=== PATIENT | male | born 1945 | race Caucasian/White ===

== ENCOUNTER 2023-04-24 08:34 | Outpatient (OUT) | payer MEDICARE, SELFPAY ==
[2023-04-24 08:52] LABS: Basophils Absolute Auto 0.1 10^3/uL (0.0-0.1); Basophils Percent Auto 0.8 % (0.2-2.0); Eosinophils Absolute Auto 0.4 10^3/uL (0.0-0.7); Eosinophils Percent Auto 5.4 % (0.9-7.0); Hematocrit 46.8 % (42.0-54.0); Hemoglobin 15.9 g/dL (14.0-18.0); Immature Granulocytes Abs Auto 0.03 10^3/uL (0.00-0.03); Immature Granulocytes Pct Auto 0.5 % (0.0-0.5); Lymphocytes Absolute Auto 2.2 10^3/uL (1.2-3.8); Lymphocytes Percent Auto 33.8 % (20.5-60.0); Mean Corpuscular Hemoglobin 30.1 pg (25.9-34.0); Mean Corpuscular Volume 88.5 fL (80.0-94.0); Mean Platelet Volume 9.9 fL (9.5-13.5); Monocytes Percent Auto 15.1 % (1.7-12.0); Neutrophils Absolute Auto 2.9 10^3/uL (1.4-6.5); Neutrophils Percent Auto 44.4 % (43.0-75.0); Platelet Count 242 10^3/uL (150-450); Red Blood Count 5.29 10^6/uL (4.70-6.10); Red Cell Distribution Width 12.3 % (11.0-15.0); White Blood Count 6.6 10^3/uL (4.0-11.0)
[2023-04-24 09:31] LABS: Anion Gap 14.4; BUN Creatinine Ratio 16.4; Calcium 9.4 mg/dL (8.5-10.1); Carbon Dioxide 25.7 mmol/L (21.0-32.0); Chloride 104 mmol/L (98-107); Chol HDL Ratio 6.8; Cholesterol 210 mg/dL (<=200); Estimated GFR (African America >60 (>=60); Estimated GFR (Non-African Ame 57 (>=60); Glucose 105 mg/dL (74-106); HDL Cholesterol 31 mg/dL (40-60); Potassium 4.1 mmol/L (3.5-5.1); Sodium 140 mmol/L (136-145); Thyroid Stimulating Hormone 3.523 uIU/mL (0.358-3.740); Triglycerides 268 mg/dL (<=150); VLDL CHOLESTEROL 53.6 mg/dL
[2023-04-24 09:57] LABS: Prostate Specific Antigen Scrn 0.26 ng/mL (<=4.00)
== END 2023-04-24 08:35 ==
LOC: LAB 08:34
PROVIDERS: PCP Internal Medicine; Visit Provider Internal Medicine
DX: E78.00 Pure hypercholesterolemia, unspecified (principal); I10 Essential (primary) hypertension; Z12.5 Encounter for screening for malignant neoplasm of prostate; E89.0 Postprocedural hypothyroidism; Z79.899 Other long term (current) drug therapy
CPT/HCPCS: 36415; 80048; 80061; 84443; 85025; G0103

== ENCOUNTER 2024-01-15 09:19 | Outpatient (OUT) | payer MEDICARE, SELFPAY ==
--- NOTE | 2024-01-15 09:35 | CT_ITS ---
The [address] [address] Patient Name: FUNMILAYO MACKENZIE MRN: [id number] date: 1945 Sex: M Assigned Patient Location: LAB Current Patient Location: LAB Accession/Order Number: [id number] Exam Date: 01/15/2024 09:46 Report Date: 01/15/2024 15:49 At the request of: MAURICIO BOBBY Procedure: CT chest wo con EXAMINATION: CT chest wo con HISTORY: Lung Nodule R91.1 COMPARISON: 01/13/2023, 07/01/2022 TECHNIQUE: Multi-planar CT images were created with IV contrast. Axial, Coronal, and Sagittal images. Dose reduction techniques were achieved by using automated exposure control and/or adjustment of mA and/or kV according to patient size and/or use of iterative reconstruction technique. FINDINGS: LUNGS: Scattered calcified and noncalcified solid pulmonary nodules throughout both lungs the largest is identified in the left lower lobe axial image 79 measuring 7.7 mm in diameter. No new significant pulmonary nodule or mass PLEURA: No mass, effusion, or pneumothorax. VASCULATURE: No abnormality. MARISOL: Calcified left hilar lymph nodes MEDIASTINUM: No mass or adenopathy. CARDIAC: No enlargement or pericardial effusion. Heavy coronary atherosclerosis AORTA: No aneurysm or dissection. CHEST WALL: No mass or axillary adenopathy. BONES: No bone lesion or fracture. Moderate diffuse degenerative changes LIMITED ABDOMEN: No suspicious findings. Limited images of the upper abdomen. OTHER: Negative. CT/CT chest wo con IMPRESSION: Stable scattered subcentimeter pulmonary nodules. Lack of change from 2021 suggests a benign process Electronically authenticated by: YASH THOMPSON Date: 01/15/2024 15:49
--- NOTE | 2024-01-15 09:35 | MR_ITS ---
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 TECHNIQUE: A comprehensive examination was performed utilizing a variety of imaging planes and imaging parameters to optimize visualization of suspected pathology. Magnetic resonance cholangiopancreatography was also performed. FINDINGS: LIVER: Normal. No enlargement, atrophy, abnormal density, or significant focal lesion. BILIARY: No visible dilatation or calcification. PANCREAS: No lesion, fluid collection, ductal dilatation, or atrophy. 1.1 x 0.8 cm area of signal abnormality noted along the anterior margin of the pancreatic head best visualized on axial image #18 this appears to be extrinsic to the pancreas with no postcontrast enhancement SPLEEN: No enlargement or focal lesion. KIDNEYS: Bilateral renal cortical cysts, nonenhancing ADRENALS: No mass or enlargement. AORTA/VASCULAR: No aneurysm or dissection. RETROPERITONEUM: No mass or adenopathy. BOWEL/MESENTERY: No visible mass, obstruction, or bowel wall thickening. ABDOMINAL WALL: No mass or hernia. BONES: No bony lesion or fracture. LUNG BASES: No visible pleural disease. Lung bases not well assessed with MRI. OTHER: Negative. MR/MR abdomen wo/w con IMPRESSION: 1.1 x 0.8 cm nonenhancing cystic lesion anterior to the pancreatic head, this appears to be extrinsic to the pancreas. Electronically authenticated by: YASH THOMPSON Date: 01/15/2024 13:09
[2024-01-15 09:42] LABS: Estimated GFR (African America >60 (>=60); Estimated GFR (Non-African Ame 55 (>=60)
== END 2024-01-15 09:20 | disposition home or self-care (01) ==
LOC: LAB 09:19
PROVIDERS: PCP Internal Medicine; Visit Provider Internal Medicine
DX: K86.2 Cyst of pancreas (principal); R91.1 Solitary pulmonary nodule
CPT/HCPCS: 36415; 71250; 74183; 82565; A9575

== ENCOUNTER 2024-05-13 07:21 | Outpatient (OUT) | payer MEDICARE, SELFPAY ==
--- OUTSIDE RECORDS SUMMARY | 2024-05-13 07:28 | XMS_ITS | CCD ---
Author Organization [facility] Care Team Providers Care Sde Name Role Phone Dominic Yan Primary Care Physician Óscar Holcomb Unavailable Unavailable BALL, DR MARTÍNEZ Primary Care Unavailable BALL, DR MARTÍNEZ Consulting Unavailable BALL, DR MARTÍNEZ Attending Unavailable BALL, DR MARTÍNEZ Admitting Unavailable ZIEBER, DR JESSICA Butler Consulting Unavailable BALL, DR MARTÍNEZ Admitting Unavailable BALL, DR MARTÍNEZ Primary Care Unavailable BALL, DR MARTÍNEZ Consulting Unavailable BALL, DR MARTÍNEZ Attending Unavailable ZIEBER, DR JESSICA Butler Consulting Unavailable BALL, DR MARTÍNEZ Admitting Unavailable BALL, DR MARTÍNEZ Primary Care Unavailable BALL, DR MARTÍNEZ Consulting Unavailable BALL, DR MARTÍNEZ Attending Unavailable Luis, Pramod Unavailable PRAMOD SMITH Referring Unavailable LUIS, PRAMOD Mena Primary Care Unavailable MARCIA PLUNKETT Attending Unavailable PRAMOD SMITH Referring Unavailable PRAMOD SMITH Primary Care Unavailable Pramod Smith DO Primary Care Provider Allergies Allergy Classification Reported Allergen(s) Allergy Type Date of Onset Reaction(s) Facility Cholesterol Absorption Inhibitors (1 source) ezetimibe Drug Allergy 4 Unknown Reaction [facility] Doxycycline (1 source) Doxycycline Drug Allergy 4 Unknown Reaction [facility] HMG-CoA Reductase Inhibitors (statins) (1 source) Simvastatin Drug Allergy 4 Unknown Reaction [facility] Opioid Agonists (1 source) Morphine Drug Allergy 4 mood disturbance [facility] venlafaxine (1 source) venlafaxine Drug Allergy 4 Unknown Reaction [facility] (5 sources) atorvastatin; Translations: [Lipitor] Drug Allergy [facility] [employer] (5 sources) ezetimibe; Translations: [Zetia] Drug Allergy [facility] [employer] (5 sources) ezetimibe / Simvastatin; Translations: [Vytorin 10-10] Drug Allergy MYALGIAS [employer] (5 sources) Lovastatin; Translations: [lovastatin] Drug Allergy MYALGIAS [employer] (1 source) Pravastatin; Translations: [pravastatin] Drug Allergy MYALGIAS [employer] (5 sources) rosuvastatin; Translations: [Crestor] Drug Allergy MYALGIAS [employer] (4 sources) Pravastatin; Translations: [pravastatin] Drug Allergy MYALGIAS [employer] (18 sources) ezetimibe Drug Allergy 4 Unknown, Unknown Reaction [facility] (20 sources) Morphine; Translations: [MORPHINE] Drug Allergy 0 Confusion [facility] (11 sources) Doxycycline Drug Allergy 4 Unknown, Unknown Reaction [facility] (13 sources) Simvastatin; Translations: [SIMVASTATIN] Drug Allergy 4 Unknown, Unknown Reaction [facility] (11 sources) venlafaxine Drug Allergy 4 Unknown, Unknown Reaction [facility] (4 sources) patient allergy list reviewed by nurse or physicia Propensity to adverse reactions 9 Comment:Done [employer] Other Medications Current Medications Medication Drug Class(es) Dates Sig (Normalized) Sig (Original) acetaminophen 325 mg oral tablet (1 source) Start: 01-01-2022 take 2 tablets by mouth every eight hours as needed for pain and headache and fever acetaminophen (TYLENOL) 325 mg tablet Take 2 tablets (650 mg total) by mouth every 8 (eight) hours as needed for pain, headaches or fever. 30 tablet 0 01/01/2022 Active acyclovir 800 mg oral tablet (20 sources) Herpesvirus Nucleoside Analog DNA Polymerase Inhibitor, Herpes Simplex Virus Nucleoside Analog DNA Polymerase Inhibitor, Herpes Zoster Virus Nucleoside Analog DNA Polymerase Inhibitor Start: 02-17-2024 take 800 mg by mouth twice daily Acyclovir Active 800 MG PO Twice daily February 17, 2024 12:00am take 1 tablet by mouth twice judy ly Acyclovir 800 MG TAKE ONE TABLET BY MOUTH TWICE A DAY for 30 Active take 1 tablet by mouth once florencio y acyclovir 800 mg tablet take one tablet by mouth daily aspirin 81 mg delayed release oral tablet (20 sources) Platelet Aggregation Inhibitor, Nonsteroidal Anti-inflammatory Drug Start: 02-17-2024 take 81 mg by mouth once daily Aspirin Active 81 MG PO Daily February 17, 2024 12:00am take 1 tablet by bj th every twenty-four hours Aspirin 81 81 MG 1 tablet Orally Once a day Active take 1 tablet by mouth in the mo rning aspirin 325 mg tablet Take 1 tablet (325 mg total) by mouth in the morning. 0 Active take 1 tablet by mouth once florencio y Aspirin 81 81 MG 1 tablet Orally Once a day Active take 1 tablet by mouth once florencio y aspirin 325 mg oral tablet,delayed release (DR/EC) take 1 tablet (325 mg) by oral route once daily brimonidine tartrate 1 mg/ml ophthalmic solution (3 sources) alpha-Adrenergic Agonist brimoni dine (ALPHAGAN P) 0.1 % drops 1 drop every 8 (eight) hours. 0 Active brimonidine 0.2 % eye drops instill 1 drop into right eye by ophthalmic route daily-dosage not provided clonazePAM 0.5 mg oral tablet (20 sources) Benzodiazepine Start: 03-05-2024 take 1 tablet by mouth three times daily for anxiety, then take 0.5 tablet by mouth three times daily for anxiety Clonazepam Active 0.75 MG PO Three times daily 405 90 March 05, 2024 1:31pm take 1 to 1 and 1/2 tablets by mouth three times a day for anxiety Start: 03-05-2024 End: 03-05-2024 take 1 tablet by mouth three times daily for anxiety, then take 0.5 tablet by mouth three times daily for anxiety Clonazepam Discontinued 0.5 MG PO Three times daily March 05, 2024 12:00am March 05, 2024 1:33pm take 1 to 1 and 1/2 tablets by mouth three times a day for anxiety Start: 02-17-2024 End: 03-05-2024 take 1-1.5 tablets by mouth twice daily Clonazepam Discontinued 0.5 MG PO Twice daily February 17, 2024 12:00am March 05, 2024 11:03am 1-1.5 tablets Start: 05-08-2023 take 1-1.5 tablets b y mouth three times daily for anxiety clonazePAM 0.5 MG Take 1-1.5 Tablets by mouth Orally Three Times a day if needed for anxiety Apr, Active Start: 03-28-2023 take 1-1.5 tablets b y mouth three times daily for anxiety clonazePAM 0.5 MG Take 1-1.5 Tablets by mouth Orally Three Times a day if needed for anxiety March, Active Start: 01-29-2016 take 1 tablet by [facility] three times daily clonazepam 0.5 mg oral tablet 01/29/2016 take 1 tablet (0.5 mg) by oral route 3 times per day take 0.5 tablet by [facility] every twelve hours KlonoPIN 0.5 MG 0.5 tablet Orally Twice a day Not-Taking/PRN take 1 tablet by [facility] every twenty-four hours clonazePAM 0.5 MG 1 tablet at bedtime Orally Once a day Active colestipol hydrochloride 1000 mg oral tablet (20 sources) Bile Acid Sequestrant Start: 02-17-2024 take 2 g by mouth once daily Colestipol Active 2 GM PO Daily February 17, 2024 12:00am Start: 10-17-2021 take 1 tablet by [facility] twice daily colestipol 1 gram tablet 10/17/2021 take 1 tablet (1 gram) by oral route 2 times per day swallowing whole with any liquid. Do not crush, chew and/or divide. Start: 10-17-2021 take 1 tablet by bj twice daily colestipol 1 gram tablet 10/17/2021 take 1 tablet (1 gram) by oral route 2 times per day swallowing whole with any liquid. Do not crush, chew and/or divide. take 2 tablets by [facility] every twenty-four hours Colestipol HCl 1 GM 2 tablets Orally Once a day Active take 1 tablet by bj at bedtime colestipoL (COLESTID) 1 g tablet Take 1 tablet (1 g total) by mouth in the morning and 1 tablet (1 g total) before bedtime. 0 Active take 2 tablets by mo uth every twenty-four hours Colestipol HCl 1 GM 2 tablets Orally Once a day Active glucose 0.4 mg/mg oral gel (1 source) Start: 01-01-2022 dextrose (GLUTOSE) 40 % gel Take 37.5 mL (15 g total) by mouth as needed for low blood sugar (blood glucose less than 70 mg/dL). 0 01/01/2022 Active latanoprost 0.05 mg/ml ophthalmic solution (3 sources) Prostaglandin Analog take 1 drop(s) into the eye(s) once daily latanoprost (XALATAN) 0.005 % ophthalmic solution 1 drop nightly. 0 Active levothyroxine sodium 0.112 mg oral tablet (20 sources) l-Thyroxine Start: 01-14-2024 take 1 tablet by mouth once daily Levothyroxine Active 0 .ROUTE .COMPLEX January 14, 2024 7:23pm TAKE ONE TABLET BY MOUTH DAILY Start: 01-14-2024 End: 01-14-2024 take 1 tablet by mouth once daily in the morning Levothyroxine (Synthroid) 112 mcg tablet Discontinued 112 MCG PO Every morning January 14, 2024 1:00am January 14, 2024 7:23pm Start: 01-27-2017 take 1 tablet by [facility] once daily Synthroid 100 mcg oral tablet 01/27/2017 take 1 tablet (100 mcg) by oral route once daily take 1 capsule by [facility] once daily Levothyroxine Sodium 112 MCG TAKE ONE CAPSULE BY MOUTH DAILY Active take 1 capsule by [facility] once daily Levothyroxine Sodium 112 MCG TAKE ONE CAPSULE BY MOUTH DAILY Active lisinopril 10 mg oral tablet (20 sources) Angiotensin Converting Enzyme Inhibitor Start: 03-29-2024 take 1 tablet by mouth once daily Lisinopril Active 0 .ROUTE .COMPLEX March 29, 2024 1:08pm take 1 tablet by mouth once daily Start: 02-17-2024 End: 03-29-2024 take 10 mg by mouth once daily Lisinopril Discontinued 10 MG PO Daily February 17, 2024 12:00am March 29, 2024 1:09pm Start: 10-17-2021 End: 10-12-2022 take 1 tablet by mouth once daily lisinopril 10 mg tablet 10/17/2021 10/12/2022 take 1 tablet by mouth once daily Start: 03-14-2020 take 1 tablet by bj once daily lisinopril 10 mg oral tablet 03/14/2020 TAKE ONE TABLET BY MOUTH DAILY Start: 03-09-2019 take 1 tablet by bj once daily lisinopril 10 mg oral tablet 03/09/2019 TAKE ONE TABLET BY MOUTH DAILY take 1 tablet by bj th every twenty-four hours Lisinopril 10 MG 1 tablet Orally Once a day Active metoprolol tartrate 50 mg oral tablet (20 sources) beta-Adrenergic Amari Start: 02-17-2024 take 50 mg by mouth twice daily Metoprolol Tartrate Active 50 MG PO Twice daily February 17, 2024 12:00am Start: 01-01-2022 take 1 tablet by bj twice daily metoprolol tartrate (LOPRESSOR) 50 mg tablet Take 1 tablet (50 mg total) by mouth 2 (two) times a day. 90 tablet 3 01/01/2022 Active Start: 10-17-2021 take 1 tablet by bj twice daily metoprolol tartrate 25 mg oral tablet 10/17/2021 TAKE ONE TABLET BY MOUTH TWICE DAILY Start: 10-17-2021 take 1 tablet by bj twice daily metoprolol tartrate 25 mg oral tablet 10/17/2021 TAKE ONE TABLET BY MOUTH TWICE DAILY Start: 03-09-2019 take 1 tablet by bj twice daily metoprolol tartrate 25 mg oral tablet 03/09/2019 TAKE ONE TABLET BY MOUTH TWICE DAILY nitroglycerin 0.4 mg sublingual tablet (5 sources) Nitrate Vasodilator Start: 10-17-2021 Nitrostat 0.4 mg sublingual tablet, sublingual 10/17/2021 1 tablet under tongue for chest pain; may repeat every 5 min until relief; if pain persists after 3 tablets in 15 min call 911 Start: 10-17-2021 Nitrostat 0.4 mg sublingual tablet, sublingual 10/17/2021 1 tablet under tongue for chest pain; may repeat every 5 min until relief; if pain persists after 3 tablets in 15 min call 911 Start: 03-09-2019 Nitrostat 0.4 mg sublingual tablet, sublingual 03/09/2019 1 tablet under tongue for chest pain; may repeat every 5 min until relief; if pain persists after 3 tablets in 15 min call 911 traMADol hydrochloride 50 mg oral tablet (20 sources) Opioid Agonist Start: 01-05-2024 End: 01-05-2024 take 50 mg by mouth every six hours Tramadol Active 50 MG PO Every 6 hours January 05, 2024 6:49pm Start 01/05 w/ 2R Start: 07-23-2023 take 1 tablet by bj th every twenty-four hours traMADol HCl 50 MG 1 tablet Orally Once a day Jul, Active Start: 01-15-2023 take 1 tablet by bj th every twenty-four hours traMADol HCl 50 MG 1 tablet Orally Once a day Jan, Active take 1 tablet by bj th every six hours traMADol HCl 50 MG 1 tablet as needed Orally every 6 hrs PRN Not-Taking/PRN take 1 tablet by bj th once daily as needed tramadol 50 mg oral tablet take 1 tablet by oral route daily as needed Completed/Discontinued Medications Medication Drug Class(es) Dates Sig (Normalized) Sig (Original) azithromycin 250 mg oral tablet (18 sources) Macrolide Antimicrobial Start: 04-09-2023 Azithromycin 250 MG as directed Orally daily for 5 days March, Not-Taking/PRN take 2 tablets by mo uth once daily, then take 1 tablet by mouth once daily azithromycin 250 mg oral tablet take 2 tablets (500 mg) by oral route once daily for 1 day then 1 tablet (250 mg) by oral route once daily for 4 days bimatoprost 0.1 mg/ml ophthalmic solution (20 sources) Prostaglandin Analog take 1 drop(s) into the eye(s) once daily in the evening Lumigan 0.01 % 1 drop into affected eye in the evening Ophthalmic Once a day Not-Taking/PRN take 1 drop(s) into the eye(s) once daily in the evening Lumigan 0.01 % 1 drop into affected eye in the evening Ophthalmic Once a day Not-Taking Calcium & Magnesium Carbonat es 520-400 MG/5ML (17 sources) Calcium & Magnes ium Carbonates 520-400 MG/5ML Orally Not-Taking/PRN Calcium & Magnes ium Carbonates 520-400 MG/5ML Orally Not-Taking calcium polycarbophil 625 mg oral tablet (5 sources) take 1 tablet by mouth once daily Fiber (calcium polycarbophil) 625 mg oral tablet take 1 tablet by oral route daily Calcium, magnesium, potassium (5 sources) take 1 tablet by mouth twice daily Calcium, magnesium, potassium one tablet by mouth twice a day-dosage not provided cholecalciferol 0.05 mg oral tablet (5 sources) Vitamin D Start: 015 take 5 drop(s) by mouth once daily Vitamin D3 2,000 unit oral tablet 07/10/2015 dosage not reported-takes 5 drops per day cholestyramine (bulk) Miscellaneous Powder (1 source) End: take 4 g by mouth once daily cholestyramine (bulk) Miscellaneous Powder 04/13/2013 use as directed 4 GM BY MOUTH DAILY Cholestyramine Resin (4 sources) Bile Acid Sequestrant End: take 4 g by mouth once daily cholestyramine (bulk) Miscellaneous Powder 04/13/2013 use as directed 4 GM BY MOUTH DAILY ubidecarenone 100 mg oral capsule (5 sources) take 1 capsule by mouth once daily CoQ-10 100 mg oral capsule take 1 capsule by oral route daily ergocalciferol 1.25 mg oral capsule (5 sources) Provitamin D2 Compound End: take 1 capsule by mouth every week Vitamin D2 50,000 unit oral capsule 04/13/2013 take 1 capsule (50,000 unit) by oral route once weekly 1 ml evolocumab 140 mg/ml auto-injector (5 sources) PCSK9 Inhibitor Start: 019 End: 020 inject 1 mL by subcutaneous injection every other week Repatha SureClick 140 mg/mL subcutaneous pen injector 03/09/2019 03/13/2020 inject 1 milliliter (140 mg) by subcutaneous route every 2 weeks in the abdomen, thigh, or outer area of upper arm (rotate sites) never started Fish Oils (20 sources) take 1 capsule by mouth once daily as needed Fish Oil 1000 MG 1 capsule Orally Once a day Not-Taking/PRN take 1 capsule by mouth once judy ly Fish Oil 1000 MG 1 capsule Orally Once a day Not-Taking take 1 capsule by mouth twice da real Fish Oil 500 mg oral capsule take 1 capsule by oral route 2 times a day fluticasone propionate 0.05 mg/actuat metered dose nasal spray (10 sources) Corticosteroid End: 04-13-2013 take 2 spray(s) nasal route once daily Veramyst 27.5 mcg/actuation nasal spray,suspension 04/13/2013 spray 2 sprays (55 mcg) in each nostril by intranasal route once daily take 1 spray(s) nasa l route once daily as needed Flonase 50 mcg/actuation nasal spray,suspension inhale 1 spray (50 mcg) in each nostril by intranasal route once daily as needed folic acid 0.4 mg / vitamin b 12 0.5 mg oral tablet (3 sources) Vitamin B12 take 1 tablet by mouth once daily vitamin [id number] acid 500-400 mcg oral tablet take 1 tablet by oral route daily folic acid 0.4 mg / vitamin b12 0.5 mg oral tablet (2 sources) Vitamin B12 take 1 tablet by mouth once daily vitamin V28-[id number] acid 500-400 mcg oral tablet take 1 tablet by oral route daily Joint Support [id number] mg oral capsule (5 sources) take 1 capsule by mouth twice daily Joint Support 181-564-15-2 mg oral capsule take 1 capsule by oral route 2 times a day multivitamin Oral tablet (5 sources) End: 04-13-2013 take 1 tablet by mouth once daily multivitamin Oral tablet 04/13/2013 take 1 tablet by oral route daily potassium gluconate 2.5 meq oral tablet (5 sources) End: 04-13-2013 take 1 tablet by mouth once daily potassium gluconate 595 mg (99 mg) oral tablet 04/13/2013 take 1 tablet by oral route daily probiotic (17 sources) probiotic as dir ected Not-Taking/PRN probiotic as dir ected Not-Taking thioctic acid 100 mg oral capsule (5 sources) take 1 capsule by mo uth once daily alpha lipoic acid 100 mg oral capsule take 1 capsule by oral route daily Vitamin D 1000 UNIT (17 sources) take 1 tablet by bj th twice daily as needed Vitamin D 1000 UNIT 1 tablet Orally bid for 30 day(s) Not-Taking/PRN take 1 tablet by mouth twice judy ly Vitamin D 1000 UNIT 1 tablet Orally bid for 30 day(s) Not-Taking Problems Active Problems Problem Classification Problem Date Documented Da te Episodic/Chronic Abdominal pain (20 sources) Abdominal pain; Translations: [Abdominal pain] Onset: 5 Episodic Acute bronchitis (20 sources) Acute bronchitis; Translations: [Acute bronchitis due to other specified organisms] Onset: 4 Episodic Anxiety disorders (20 sources) Generalized anxiety disorder; Translations: [Generalized anxiety disorder] Onset: 2 Chronic Calculus of urinary tract (8 sources) H/O: urinary stone; Translations: [Personal history of urinary calculi] Episodic Cancer of bladder (8 sources) Malignant tumor of urinary bladder; Translations: [Malignant neoplasm of bladder, unspecified] Chronic Cardiac dysrhythmias (20 sources) Other specified cardiac dysrhythmias; Translations: [Atrial fibrillation] Onset: 4 Chronic Cardiac dysrhythmias (12 sources) Bradycardia, unspecified Onset: 6 Episodic Chronic kidney disease (4 sources) Chronic kidney disease stage 3; Translations: [Chronic kidney disease, stage 3 unspecified] Onset: 9 Chronic Complications of surgical procedures or medical care (20 sources) Postprocedural hypothyroidism; Translations: [Postoperative hypothyroidism] Onset: 2 Chronic Coronary atherosclerosis and other heart disease (20 sources) Coronary atherosclerosis of [place] coronary artery; Translations: [Coronary arteriosclerosis] Onset: 4 Chronic Disorders of lipid metabolism (20 sources) Other and unspecified hyperlipidemia; Translations: [Hyperlipidemia] Onset: 0 Chronic Diverticulosis and diverticulitis (11 sources) Diverticular disease; Translations: [Diverticulosis] Chronic Esophageal disorders (4 sources) Esophageal disorders; Translations: [Gastro-esophageal reflux disease with esophagitis, without bleeding] Essential hypertension (20 sources) Unspecified essential hypertension; Translations: [Hypertensive disorder] Onset: 4 Chronic Gastroduodenal ulcer (except hemorrhage) (4 sources) Peptic ulcer without hemorrhage, without perforation AND without obstruction; Translations: [Peptic ulcer, site unspecified, unspecified as acute or chronic, without hemorrhage or perforation] Chronic Gastrointestinal hemorrhage (20 sources) Acute lower gastrointestinal hemorrhage; Translations: [Gastrointestinal hemorrhage, unspecified] Onset: 2 12-31-2021 Episodic Headache; including migraine (4 sources) Tension-type headache; Translations: [Tension headache] Onset: 5 Chronic Hyperplasia of prostate (4 sources) Benign prostatic hypertrophy without outflow obstruction; Translations: [Hypertrophy (benign) of prostate without urinary obstruction and other lower urinary tract symptoms [LUTS]] Chronic Hypertension with complications and secondary hypertension (4 sources) Benign hypertensive renal disease; Translations: [Hypertensive chronic kidney disease, benign, with chronic kidney disease stage I through stage IV, or unspecified] Onset: 9 Chronic Immunizations and screening for infectious disease (4 sources) Contact with and (suspected) exposure to other viral communicable diseases; Translations: [Contact with and (suspected) exposure to COVID-19] Episodic Infective arthritis and osteomyelitis (except that caused by tuberculosis or sexually transmitted disease) (4 sources) Acute osteomyelitis; Translations: [Other acute osteomyelitis, unspecified site] Chronic Nutritional deficiencies (17 sources) Vitamin D deficiency; Translations: [Vitamin D deficiency, unspecified] Chronic Occlusion or stenosis of precerebral arteries (20 sources) Occlusion and stenosis of carotid artery without mention of cerebral infarction; Translations: [Carotid artery stenosis] Onset: 0 Chronic Osteoarthritis (20 sources) Localized, primary osteoarthritis of the shoulder region; Translations: [Primary osteoarthritis, right shoulder] Onset: 5 Chronic Other aftercare (3 sources) Other paid intern (current) drug therapy; Translations: [OTH [facility] CURRENT DRUG THERAPY] Onset: 2 Episodic Other aftercare (4 sources) Long-term current use of drug therapy; Translations: [Other senior living (current) drug therapy] Episodic Other circulatory disease (16 sources) Carotid bruit; Translations: [Other specified symptoms and signs involving the circulatory and respiratory systems] Episodic Other circulatory disease (1 source) Other specified symptoms and signs involving the circulatory and respiratory systems; Translations: [Carotid bruit] Episodic Other circulatory disease (4 sources) Cardiovascular symptoms; Translations: [Other specified symptoms and signs involving the circulatory and respiratory systems] Episodic Other gastrointestinal disorders (20 sources) Disorder of intestine; Translations: [Disease of intestine, unspecified] Onset: 2 Episodic Other gastrointestinal disorders (15 sources) Constipation; Translations: [Constipation] Onset: 6 Episodic Other gastrointestinal disorders (1 source) Disease of intestine, unspecified; Translations: [Bowel wall thickening] Episodic Other injuries and conditions due to external causes (4 sources) History of fall; Translations: [History of falling] Episodic Other lower respiratory disease (13 sources) Solitary pulmonary nodule; Translations: [Solitary pulmonary nodule] Onset: 3 Episodic Other lower respiratory disease (19 sources) Nodule of lung; Translations: [Solitary pulmonary nodule] 02-15-2024 Episodic Other nervous system disorders (6 sources) Ulnar neuropathy; Translations: [Lesion of ulnar nerve, right upper limb] Chronic Other nervous system disorders (1 source) Lesion of ulnar nerve, right upper limb Chronic Other nervous system disorders (1 source) Other chronic pain; Translations: [Other chronic pain] Onset: 4 Chronic Other non-traumatic joint disorders (4 sources) Arthropathy of joint of hand; Translations: [Unspecified arthropathy, hand] Onset: 3 Chronic Other nutritional; endocrine; and metabolic disorders (4 sources) Obesity; Translations: [Obesity, unspecified] Chronic Other nutritional; endocrine; and metabolic disorders (20 sources) Overweight; Translations: [Overweight] Episodic Other screening for suspected conditions (not mental disorders or infectious disease) (10 sources) Nonspecific abnormal electrocardiogram [ECG] [EKG]; Translations: [Abnormal electrocardiogram [ECG] [EKG]] Onset: 7 Episodic Other skin disorders (11 sources) Sweating fever; Translations: [Sweating disease] Episodic Other upper respiratory disease (20 sources) Allergic rhinitis due to pollen; Translations: [Allergic rhinitis due to pollen] Chronic Other upper respiratory disease (1 source) Allergic rhinitis due to pollen; Translations: [Acute seasonal allergic rhinitis due to pollen] Chronic Other upper respiratory infections (20 sources) Acute maxillary sinusitis; Translations: [Acute maxillary sinusitis, unspecified] Onset: 3 Episodic Pancreatic disorders (not diabetes) (20 sources) Cyst of pancreas; Translations: [Cyst of pancreas] Onset: 2 Episodic Peripheral and visceral atherosclerosis (15 sources) Peripheral vascular disease, unspecified; Translations: [Peripheral vascular disease] Onset: 4 Chronic Residual codes; unclassified (12 sources) Other specified health status Onset: 7 Episodic Spondylosis; intervertebral disc disorders; other back problems (20 sources) Lumbosacral spondylosis with radiculopathy; Translations: [Other spondylosis with radiculopathy, lumbosacral region] Onset: 0 Chronic Spondylosis; intervertebral disc disorders; other back problems (15 sources) Backache; Translations: [Dorsalgia, unspecified] Onset: 2 Resolved: 1 12-11-2023 Episodic Substance-related disorders (19 sources) Tobacco user; Translations: [Nicotine dependence, cigarettes, in remission] Chronic Thyroid disorders (20 sources) Unspecified acquired hypothyroidism; Translations: [Hypothyroidism] Onset: 6 02-15-2024 Chronic Unclassified (4 sources) Long-term current use of drug therapy; Translations: [Long-term (current) use of other medications] Onset: 7 Unclassified (1 source) Low back pain, unspecified; Translations: [Low back pain, unspecified] Onset: 4 Viral infection (20 sources) Post-herpetic polyneuropathy; 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] Onset: 5 Episodic Past or Other Problems Problem Classification Problem Date Documented Da te Episodic/Chronic Adverse effects of medical drugs (14 sources) Other drug allergy Onset: 01-27-2017 Episodic Anal and rectal conditions (4 sources) Anorectal disorder; Translations: [Other specified diseases of anus and rectum] Resolved: 04-01-2022 Episodic Bacterial infection; unspecified site (4 sources) Bacterial infectious disease; Translations: [Bacterial infection, unspecified, in conditions classified elsewhere and of unspecified site] Onset: 06-23-2019 Episodic Cancer of bladder (4 sources) History of malignant neoplasm of bladder; Translations: [Personal history of malignant neoplasm of bladder] Onset: 11-17-1959 Episodic Malaise and fatigue (4 sources) Malaise and fatigue; Translations: [Other malaise and fatigue] Onset: 05-27-2016 Episodic Open wounds of head; neck; and trunk (4 sources) Laceration without foreign body of nose, subsequent encounter; Translations: [Laceration without foreign body of nose, subsequent encounter] Resolved: 01-11-2021 Episodic Other and unspecified benign neoplasm (4 sources) Benign neoplasm of rectum; Translations: [Benign neoplasm of rectum] Onset: 01-01-2022 Episodic Other connective tissue disease (18 sources) Myalgia and myositis, unspecified; Translations: [Statin Myalgias] Onset: 07-11-2014 Episodic Other injuries and conditions due to external causes (4 sources) Traumatic AND/OR non-traumatic injury; Translations: [Other injury of unspecified body region, initial encounter] Resolved: 01-11-2021 Episodic Other lower respiratory disease (4 sources) Solitary nodule of lung; Translations: [Solitary pulmonary nodule] Onset: 01-01-2022 Episodic Other male genital disorders (4 sources) Spermatocele; Translations: [Spermatocele of epididymis, unspecified] Onset: 08-05-2014 Episodic Other non-traumatic joint disorders (8 sources) Shoulder joint pain; Translations: [Pain in joint, shoulder region] Onset: 05-14-2018 Episodic Other nutritional; endocrine; and metabolic disorders (4 sources) Body mass index 25-29 - overweight; Translations: [Body mass index 28.0-28.9, adult] Onset: 06-09-2017 Episodic Other skin disorders (4 sources) Generalized hyperhidrosis; Translations: [Generalized hyperhidrosis] Onset: 07-01-2016 Episodic Other upper respiratory disease (4 sources) Dysphonia; Translations: [Dysphonia] Onset: 05-27-2016 Episodic Poisoning by other medications and drugs (5 sources) Drug intolerance; Translations: [Other drug allergy] Onset: 01-27-2017 Episodic Screening and history of mental health and substance abuse codes (4 sources) History of tobacco use; Translations: [Personal history of tobacco use, presenting hazards to health] Onset: 06-09-2017 Episodic Sprains and strains (4 sources) Neck sprain; Translations: [Neck sprain and strain] Onset: 06-22-2014 Episodic Superficial injury; contusion (4 sources) Contusion of other part of head, subsequent encounter; Translations: [Contusion of other part of head, subsequent encounter] Resolved: 01-11-2021 Episodic Unclassified (1 source) [id number] [email or web address] Onset: 07-10-2015 Unclassified (1 source) [id number] [email or web address] Onset: 07-10-2015 Unclassified (1 source) [id number] [email or web address]_name_[email or web address] Onset: 07-10-2015 Unclassified (1 source) [id number] [email or web address]_[email or web address] Onset: 07-10-2015 Unclassified (1 source) [id number] [email or web address]_name_[email or web address] Onset: 07-10-2015 Unclassified (1 source) [id number] [email or web address]_name_27 Onset: 07-10-2015 Unclassified (2 sources) Acute bilateral low back pain without sciatica M54.50 Results Test Name Value Interpretation Reference Range Facility Estimated glomerular filtrat ion rate (GFR) non- Americanon 01-15-2024 GFR/1.73 sq M.predicted among non-blacks MDRD (S/P/Bld) [Vol rate/Area] 55 mL/min/{1.73_m2} >=60 [facility] - Chemistry and C hemistry - challengeon 01-15-2024 Creatinine [Mass/Vol] 1.27 mg/dL 0.70-1.30 [facility] GFR/1.73 sq M.predicted MDRD (S/P/Bld) [Vol rate/Area] mL/min/{1.73_m2} >=60 [facility] XR SPINE LUMB COMP INCL BEND 6+ VWSon 12-04-2023 XR SPINE LUMB COMP INCL BEND 6+ VWS XR SPINE LUMB COMP INCL BEND 6+ VWS XR SPINE LUMB COMP INCL BEND 6+ VWS HISTORY: Lumbar spondylosis. COMPARISON: None. IMPRESSION: Posterior aryan pedicle screw fixation L3-S1, fractured S1 pedicle screws. Fusion at L4-5 with mature ossification about this disc space. Preserved lumbar vertebral body heights. No substantial listhesis. Moderate to severe disc height loss at L1-2 with intradiscal vacuum phenomenon. Degenerative changes bilateral sacroiliac joints. Vascular calcifications. Finalized by Richardson Collado MD on 12/04/2023 12:36 PM Normal [facility] Complete Blood Count and Dif sonal 04-24-2023 Anisocytosis Ql (Bld) [employer] Other Basophilic stippling LM Ql (Bld) [facility] Other RBC morphology finding Nom (Bld) [facility] Other Complete Blood Count and Diff [facility] Other CT CHEST WO CONon 01-13-2023 CT CHEST WO CON EXAMINATION: CT CHEST WO CON HISTORY: Solitary nodule of lung COMPARISON: CT chest 07/01/2022 TECHNIQUE: Axial, Coronal, and Sagittal images were created without the administration of IV contrast material. Dose reduction techniques were achieved by using automated exposure control and/or adjustment of mA and/or kV according to patient size and/or use of iterative reconstruction technique. FINDINGS: LUNGS: A few tiny nodules scattered within the lungs, with the largest located in the lateral left lung base, 8 mm. All are stable. Mild emphysematous changes. PLEURA: No mass, effusion, or pneumothorax. VASCULATURE: No abnormality. MARISOL: Calcified left hilar lymph nodes. MEDIASTINUM: No mass or adenopathy. CARDIAC: Atherosclerotic coronary artery disease. No cardiac enlargement or pericardial effusion. AORTA: Mild dilation of the ascending aorta, 4.1 cm in diameter. CHEST WALL: No mass or axillary adenopathy. BONES: No bone lesion or fracture. LIMITED ABDOMEN: No suspicious findings. Limited images of the upper abdomen. OTHER: Negative. IMPRESSION: 1. Lung-RADS 2- Benign Appearance or Behavior. Nodules with a very low likelihood of becoming a clinically active cancer due to size or lack of growth. Follow-up CT Chest in 1 year. Electronically authenticated by: JESSICA MELENDEZ Date: 2023-01-13 11:47 Normal [facility] CT chest wo conon 01-13-2023 CT chest wo con [facility] NICE Other CT CHEST WO CONon 07-01-2022 CT CHEST WO CON EXAMINATION: CT CHEST WO CON HISTORY: Solitary nodule of lung COMPARISON: No relevant comparison available. TECHNIQUE: Axial, Coronal, and Sagittal images were created without the administration of IV contrast material. Dose reduction techniques were achieved by using automated exposure control and/or adjustment of mA and/or kV according to patient size and/or use of iterative reconstruction technique. FINDINGS: LUNGS: Several small nodules scattered within the lungs, largest is within the left lower lobe near the lateral costophrenic angle, 8 mm. A few small calcified granulomas scattered within the lungs. PLEURA: No mass, effusion, or pneumothorax. VASCULATURE: No abnormality. MARISOL: Calcified left hilar lymph nodes. MEDIASTINUM: No mass or adenopathy. CARDIAC: Marked atherosclerotic coronary artery disease. No pericardial effusion. AORTA: Ascending aorta is upper limits of normal in diameter, 3.9 cm. CHEST WALL: No mass or axillary adenopathy. BONES: No bone lesion or fracture. LIMITED ABDOMEN: No suspicious findings. Limited images of the upper abdomen. OTHER: Negative. IMPRESSION: 1. Several nonspecific small nodules scattered within the lungs; none are overtly suspicious. Largest nodule it is within left lower lobe, 8 mm which is at lower limits for PET imaging. Consider follow-up CT imaging in 3, 6, 12, and 24 months after discovery to document stability over a two-year period. 2. Calcified atherosclerotic coronary artery disease. 3. Mild dilation of ascending aorta. Electronically authenticated by: JESSICA MELENDEZ Date: 2022-07-01 14:14 Normal [facility] CBC AUTO DIFFon 04-03-2022 BASO # 0.1 103/ul Normal 0.0-0.1 [facility] Comment on above: Performed By: #### C BC #### [facility] [address] [place] [address] Dr. Nahomy Gutiérrez Basophils/100 WBC (Bld) 0.8 % Normal 0.2-2.0 [facility] Comment on above: Performed By: #### C BC #### [facility] [address] [place] [address] Dr. Nahomy Gutiérrez EO # 0.3 103/ul Normal 0.0-0.7 [facility] Comment on above: Performed By: #### C BC #### [facility] [address] [place] [address] Dr. Nahomy Gutiérrez Eosinophils/100 WBC (Bld) 4.6 % Normal 0.9-7.0 [facility] Comment on above: Performed By: #### C BC #### [facility] [address] [place] [address] Dr. Nahomy Gutiérrez Erythrocyte distribution width (RBC) [Ratio] 12.4 % Normal 11.0-15.0 [facility] Comment on above: Performed By: #### C BC #### [facility] [address] [place] [address] Dr. Nahomy Gutiérrez Hematocrit (Bld) [Volume fraction] 47.5 % Normal 42.0-54.0 [facility] Comment on above: Performed By: #### C BC #### [facility] [address] [place] [address] Dr. Nahomy Gutiérrez Hemoglobin (Bld) [Mass/Vol] 15.9 g/dL Normal 14.0-18.0 [facility] Comment on above: Performed By: #### C BC #### [facility] [address] [place] [address] Dr. Nahomy Gutiérrez IG # 0.02 10e3/ul Normal 0.00-0.03 [facility] Comment on above: Performed By: #### C BC #### [facility] [address] [place] [address] Dr. Nahomy Gutiérrez IG % 0.3 % Normal 0.0-0.5 [facility] Comment on above: Performed By: #### C BC #### [facility] [address] [place] [address] Dr. Nahomy Gutiérrez LYMPH # 2.0 103/ul Normal 1.2-3.8 [facility] Comment on above: Performed By: #### C BC #### [facility] [address] [place] [address] Dr. Nahomy Gutiérrez Lymphocytes/100 WBC (Bld) 31.9 % Normal 20.5-60.0 [facility] Comment on above: Performed By: #### C BC #### [facility] [address] [place] [address] Dr. Nahomy Gutiérrez MANUAL DIFF REQ NO Normal [facility] Comment on above: Performed By: #### C BC #### [facility] [address] [place] [address] Dr. Nahomy Gutiérrez MCH (RBC) [Entitic mass] 30.5 pg Normal 25.9-34.0 [facility] Comment on above: Performed By: #### C BC #### [facility] [address] [address] [address] Nahomy Gutiérrez MCHC (RBC) [Mass/Vol] 33.5 g/dL Normal 29.9-35.2 [facility] Comment on above: Performed By: #### C BC #### [facility] [address] [place] [address] Dr. Nahomy Gutiérrez MCV (RBC) [Entitic vol] 91.0 fL Normal 80.0-94.0 [facility] Comment on above: Performed By: #### C BC #### [facility] [address] [place] [address] Dr. Nahomy Gutiérrez MONO # 0.9 103/ul Critically high 0.3-0.8 [facility] Comment on above: Performed By: #### C BC #### [facility] [address] [place] [address] Dr. Nahomy Gutiérrez Monocytes/100 WBC (Bld) 14.8 % Critically high 1.7-12.0 [facility] Comment on above: Performed By: #### C BC #### [facility] [address] [place] [address] Dr. Nahomy Gutiérrez NEUT # 2.9 103/ul Normal 1.4-6.5 [facility] Comment on above: Performed By: #### C BC #### [facility] [address] [place] [address] Dr. Nahomy Gutiérrez Neutrophils/100 WBC (Bld) 47.6 % Normal 43.0-75.0 [facility] Comment on above: Performed By: #### C BC #### [facility] [address] [place] [address] Dr. Nahomy Gutiérrez Platelet mean volume (Bld) [Entitic vol] 9.4 fL Critically low 9.5-13.5 [facility] Comment on above: Performed By: #### C BC #### [facility] [address] [place] [address] Dr. Nahomy Gutiérrez PLT 215 103/ul Normal 150-450 [facility] Comment on above: Performed By: #### C BC #### [facility] [address] [address] [address] Nahomy Gutiérrez RBC 5.22 106/ul Normal 4.70-6.10 [facility] Comment on above: Performed By: #### C BC #### [facility] [address] [address] [address] Nahomy Gutiérrez WBC 6.1 103/ul Normal 4.0-11.0 [facility] Comment on above: Performed By: #### C BC #### [facility] [address] [address] [address] Nahomy Gutiérrez LIPID PROFILEon 04-03-2022 CHOL-HDL RATIO NORM SEE BELOW Normal [facility] Comment on above: Result Comment: 3.3 - 4.4 LOW RISK 4.4 - 7.1 AVERAGE RISK 7.1 - 11.0 MODERATE RISK >11.0 HIGH RISK Performed By: #### T SH, LIPID, ALT, BMP #### [facility] [address] [place] [address] Dr. Nahomy Gutiérrez Cholesterol [Mass/Vol] 206 mg/dL Critically high <=200 [facility] Comment on above: Performed By: #### T SH, LIPID, ALT, BMP #### [facility] [address] [place] [address] Dr. Nahomy Gutiérrez Cholesterol in HDL [Mass/Vol] 31 mg/dL Critically low 40-60 [facility] Comment on above: Performed By: #### T SH, LIPID, ALT, BMP #### [facility] [address] [place] [address] Dr. Nahomy Gutiérrez Cholesterol in LDL [Mass/Vol] 121.4 mg/dL Normal [facility] Comment on above: Performed By: #### T SH, LIPID, ALT, BMP #### [facility] [address] [place] [address] Dr. Nahomy Gutiérrez Cholesterol.total /Cholesterol in HDL [Mass ratio] 6.6 {ratio} Normal [facility] Comment on above: Performed By: #### T SH, LIPID, ALT, BMP #### [facility] [address] [address] [address] Nahomy Gutiérrez HDL NORMAL > or = 60 mg/dl - LOW CARDIOVASCULAR RISK <40 mg/dl - HIGH CARDIOVASCULAR RISK Normal [facility] Comment on above: Performed By: #### T SH, LIPID, ALT, BMP #### [facility] [address] [address] [address] Nahomy Gutiérrez LDL CALC NORMAL SEE BELOW Normal [facility] Comment on above: Result Comment: <100 mg/dl OPTIMAL 100 - 129 mg/dl NEAR OR ABOVE OPTIMAL 130 - 159 mg/dl BORDERLINE HIGH 160 - 189 mg/dl HIGH >190 mg/dl VERY HIGH Performed By: #### T SH, LIPID, ALT, BMP #### [facility] [address] [address] [address] Nahomy Gutiérrez Triglyceride [Mass/Vol] 268 mg/dL Critically high <=150 [facility] Comment on above: Performed By: #### T SH, LIPID, ALT, BMP #### [facility] [address] [place] [address] Dr. Nahomy Gutiérrez VLDL CALC 53.6 mg/dL Normal [facility] Comment on above: Performed By: #### T SH, LIPID, ALT, BMP #### [facility] [address] [address] [address] Nahomy Gutiérrez PROF CHEM 8 (BAS METB)on Anion gap [Moles/Vol] 14.3 mmol/L Normal [facility] Comment on above: Performed By: #### T SH, LIPID, ALT, BMP #### [facility] [address] [place] [address] Dr. Nahomy Gutiérrez Calcium [Mass/Vol] 9.0 mg/dL Normal 8.5-10.1 [facility] Comment on above: Performed By: #### T SH, LIPID, ALT, BMP #### [facility] [address] [address] [address] Nahomy Gutiérrez Chloride [Moles/Vol] 104 mmol/L Normal 98-107 [facility] Comment on above: Performed By: #### T SH, LIPID, ALT, BMP #### [facility] [address] [address] [address] Nahomy Gutiérrez CO2 [Moles/Vol] 23.1 mmol/L Normal 21.0-32.0 [facility] Comment on above: Performed By: #### T SH, LIPID, ALT, BMP #### [facility] [address] [address] [address] Nahomy Gutiérrez Creatinine [Mass/Vol] 1.15 mg/dL Normal 0.70-1.30 [facility] Comment on above: Performed By: #### T SH, LIPID, ALT, BMP #### [facility] [address] [address] [address] Nahomy Gutiérrez EGFR-AF ICELANDIC >60 Normal >=60 [facility] Comment on above: Performed By: #### T SH, LIPID, ALT, BMP #### [facility] [address] [address] [address] Nahomy Gutiérrez EGFR-NON AF ICELANDIC >60 Normal >=60 [facility] Comment on above: Performed By: #### T SH, LIPID, ALT, BMP #### [facility] [address] [address] [address] Nahomy Gutiérrez Glucose [Mass/Vol] 106 mg/dL Normal 74-106 [facility] Comment on above: Performed By: #### T SH, LIPID, ALT, BMP #### [facility] [address] [address] [address] Nahomy Gutiérrez Potassium [Moles/Vol] 4.4 mmol/L Normal 3.5-5.1 [facility] Comment on above: Performed By: #### T SH, LIPID, ALT, BMP #### [facility] [address] [address] [address] Nahomy Gutiérrez Sodium [Moles/Vol] 137 mmol/L Normal 136-145 [facility] Comment on above: Performed By: #### T SH, LIPID, ALT, BMP #### [facility] [address] [address] [address] Nahomy Gutiérrez Urea nitrogen [Mass/Vol] 19.0 mg/dL Critically high 7.0-18.0 [facility] Comment on above: Performed By: #### T SH, LIPID, ALT, BMP #### [facility] [address] [place] [address] Dr. Nahomy Gutiérrez Urea nitrogen/Creatini ne [Mass ratio] 16.5 mg/mg Normal [facility] Comment on above: Performed By: #### T SH, LIPID, ALT, BMP #### [facility] [address] [place] [address] Dr. [facility] ALT [Catalytic activity/Vol] 29 U/L Normal 16-63 [facility] Comment on above: Performed By: #### T SH, LIPID, ALT, BMP #### [facility] [address] [place] [address] Dr. Nahomy Gutiérrez TSHon 04-03-2022 TSH 1.647 uIU/mL Normal 0.358-3.740 [facility] Comment on above: Performed By: #### T SH, LIPID, ALT, BMP #### [facility] [address] [place] [address] Dr. Nahomy Gutiérrez TSH RANGE SEE BELOW Normal [facility] Comment on above: Result Comment: <0.3 4 UIU/ml HYPERTHYROID 0.34-5.60 UIU/ml EUTHYROID >5.60 UIU/ml HYPOTHYROID Performed By: #### T SH, LIPID, ALT, BMP #### [facility] [address] [place] [address] Dr. Nahomy Gutiérrez Otheron 01-31-2017 Patient Name: Omar Ziegler Invalid Interpretation Code [facility] [employer] Vital Signs Date Time Vital Sign Value Performing Clinician Facility 05-06-2024 09: Body height 175.26 cm [facility] 05-06-2024 09: Body mass index (BMI) [Ratio] 28.8 kg/m2 [facility] 05-06-2024 09:16 Body weight 88.67 kg [facility] 05-06-2024 [id number] Diastolic blood pressure 80 mm[Hg] [facility] 05-06-2024 09:16-0400 Heart rate 76 /min [facility] 05-06-2024 09:16-0400 Respiratory rate 12 /min [facility] 05-06-2024 09:16-0400 Systolic blood pressure 130 mm[Hg] [facility] 02-18-2024 09:50-0400 Body height 175.26 cm [facility] 02-18-2024 09:50-0400 Body mass index (BMI) [Ratio] 29.5 kg/m2 [facility] 02-18-2024 09:50-0400 Body weight 90.83 kg [facility] 02-18-2024 09:50-0400 Diastolic blood pressure 96 mm[Hg] [facility] 02-18-2024 09:50-0400 Heart rate 73 /min [facility] 02-18-2024 09:50-0400 Respiratory rate 12 /min [facility] 02-18-2024 09:50-0400 Systolic blood pressure 172 mm[Hg] [facility] 12-11-2023 11:38-0500 Body height 175.3 cm Marcia MARIE Work Phone: [facility] 12-11-2023 11:38-0500 Body mass index (BMI) [Ratio] 29.39 kg/m2 Marcia MARIE Work Phone: [facility] 12-11-2023 11:38-0500 Body weight 90.27 kg Marcia MARIE Work Phone: [facility] 12-11-2023 11:38-0500 Diastolic blood pressure 115 mm[Hg] Marcia MARIE Work Phone: [facility] 12-11-2023 11:38-0500 Heart rate 68 /min Marcia MARIE Work Phone: [facility] 12-11-2023 11:38-0500 SaO2% (BldA) [Mass fraction] 99 % Marcia MAREI Work Phone: [email or web address] 12-11-2023 11:38-0500 Systolic blood pressure 156 mm[Hg] Marcia MARIE Work Phone: [email or web address] 07-23-2023 10:00-0400 Body height 175.26 cm Pramod Ball Other [employer] Other 07-23-2023 10:00-0400 Body mass index (BMI) [Ratio] 29 kg/m2 Pramod Ball Other [employer] Other 07-23-2023 10:00-0400 Body weight 89.09 kg Pramod Ball Other [employer] Other 07-23-2023 10:00-0400 Diastolic blood pressure 81 mm[Hg] Pramod Ball Other [employer] Other 07-23-2023 10:00-0400 Respiratory rate 12 /min Pramod Ball Other [employer] Other 07-23-2023 10:00-0400 Systolic blood pressure 133 mm[Hg] Pramod Ball Other [employer] Other 04-21-2023 10:00-0400 Body height 175.26 cm Pramod Ball Other [employer] Other 04-21-2023 10:00-0400 Body mass index (BMI) [Ratio] 29.15 kg/m2 Pramod Ball Other [employer] Other 04-21-2023 10:00-0400 Body weight 89.54 kg Pramod Ball Other [employer] Other 04-21-2023 10:00-0400 Diastolic blood pressure 82 mm[Hg] Pramod Ball Other [employer] Other 04-21-2023 10:00-0400 Respiratory rate 12 /min Pramod Ball Other [employer] Other 04-21-2023 10:00-0400 Systolic blood pressure 130 mm[Hg] Pramod Ball Other [employer] Other 01-15-2023 10:00-0500 Body height 175.26 cm Pramod Ball Other [employer] Other 01-15-2023 10:00-0500 Body mass index (BMI) [Ratio] 29.86 kg/m2 Pramod Ball Other [employer] Other 01-15-2023 10:00-0500 Body weight 91.72 kg Pramod Ball Other [employer] Other 01-15-2023 10:00-0500 Diastolic blood pressure 82 mm[Hg] Pramod Ball Other [employer] Other 01-15-2023 10:00-0500 Respiratory rate 12 /min Pramod Ball Other [employer] Other 01-15-2023 10:00-0500 Systolic blood pressure 118 mm[Hg] Pramod Ball Other [employer] Other 10-17-2021 11:57-0500 Body height 173.99 cm Dominic Yanado 10-17-2021 11:57-0500 Body mass index (BMI) [Ratio] 29.67 kg/m2 Dominic Yanado 10-17-2021 11:57-0500 Body surface area Derived from formula 2.08 m2 Dominic [employer] [facility] 10-17-2021 11:57-0500 Body weight 89.81 kg Dominic Yan Lamiecco 10-17-2021 11:57-0500 Diastolic blood pressure 70 mm[Hg] Dominic Yan [facility] 10-17-2021 11:57-0500 Diastolic blood pressure 80 mm[Hg] Dominic Yan [facility]iecco 10-17-2021 11:57-0500 Heart rate 76 /min Dominic Yan Lamiecco 10-17-2021 11:57-0500 Systolic blood pressure 120 mm[Hg] Dominic Yan [facility]cco 10-17-2021 11:57-0500 Systolic blood pressure 134 mm[Hg] Dominic Yan Lamiecco 03-09-2019 17:19-0400 BP Diastolic 72 mm[Hg] Dominic Yan Lamiecco 03-09-2019 17:19-0400 BP Systolic 130 mm[Hg] Dominic Yan Lamiecco 03-09-2019 16:58-0400 BMI (Body Mass Index) 29.07 kg/m2 Dominic Yan Lamiecco 03-09-2019 16:58-0400 Body weight 89.81 kg Dominic Yan Lamiecco 03-09-2019 16:58-0400 BP Diastolic 78 mm[Hg] Dominic Yan [facility]iecco 03-09-2019 16:58-0400 BP Diastolic 76 mm[Hg] Dominic Yan [facility]cco 03-09-2019 16:58-0400 BP Systolic 140 mm[Hg] Dominic Yan Lamiecco 04-23-2019 16:58-0400 BP Systolic 136 mm[Hg] Dominic [employer] 03-09-2019 16:58-0400 BSA (Body Surface Area) 2.09 m2 Dominic [employer] 03-09-2019 16:58-0400 Height 175.77 cm Dominic Yan [employer] 03-09-2019 16:58-0400 Pulse (Heart Rate) 72 /min [email or web address] Lorenzo [email or web address] 03-09-2019 16:58-0400 Weight 89.81 kg Dominic Yan Lamiecco 01-27-2018 13:55-0400 BMI (Body Mass Index) 28.88 kg/m2 Dominic Yan Lamiecco 01-27-2018 13:55-0400 Body weight 89.36 kg Dominic Yan Lamiecco 01-27-2018 13:55-0400 BP Diastolic 82 mm[Hg] Dominic Yan Lamiecco 01-27-2018 13:55-0400 BP Systolic 136 mm[Hg] Dominic Yan Lamiecco 01-27-2018 13:55-0400 BP Systolic 130 mm[Hg] Dominic Yan Lamiecco 01-27-2018 13:55-0400 BSA (Body Surface Area) 2.09 m2 Dominic Yan Lamiecco 01-27-2018 13:55-0400 Height 175.9 cm Dominic Yan Lamiecco 01-27-2018 13:55-0400 Pulse (Heart Rate) 60 /min [email or web address] Lorenzo [email or web address] 01-27-2018 13:55-0400 Weight 89.36 kg Dominic Farrah [employer] 01-27-2017 13:41-0400 BMI (Body Mass Index) 28.85 kg/m2 Dominic Plummer [employer] 01-27-2017 13:41-0400 Body weight 89.13 kg Dominic Yan [employer] 01-27-2017 13:41-0400 BP Diastolic 86 mm[Hg] Dominic Yan [employer] 01-27-2017 13:41-0400 BP Diastolic 84 mm[Hg] Dominic Yan [employer] 01-27-2017 13:41-0400 BP Systolic 134 mm[Hg] Dominic Yan [employer] 01-27-2017 13:41-0400 BP Systolic 132 mm[Hg] Dominic Yan [employer] 01-27-2017 13:41-0400 BSA (Body Surface Area) 2.09 m2 Dominic Yan [employer] 01-27-2017 13:41-0400 Height 175.77 cm Dominic Yan [employer] 01-27-2017 13:41-0400 Pulse (Heart Rate) 68 /min Dominic Plummer [facility] [employer] 01-27-2017 13:41-0400 Weight 89.13 kg Dominic Yan [employer] 01-29-2016 12:56-0400 BMI (Body Mass Index) 28.6 kg/m2 Dominic Yan [employer] 01-29-2016 12:56-0400 Body weight 89.13 kg Dominic Yan [employer] 01-29-2016 12:56-0400 BP Diastolic 80 mm[Hg] Dominic Yan [employer] 01-29-2016 12:56-0400 BP Diastolic 82 mm[Hg] [facility] [facility] 01-29-2016 12:56-0400 BP Systolic 148 mm[Hg] [facility] [employer] [facility] 01-29-2016 12:56-0400 BP Systolic 146 mm[Hg] Dominic Yan [facility] [employer] [facility] 01-29-2016 12:56-0400 BSA (Body Surface Area) 2.09 m2 Dominic Yan [facility] [employer] [facility] 01-29-2016 12:56-0400 Height 176.53 cm Dominic Yan [facility] [employer] [facility] 01-29-2016 12:56-0400 Pulse (Heart Rate) 72 /min Dominic Plummer [facility] [employer] [facility] 01-29-2016 12:56-0400 Weight 89.13 kg Dominic Yan [facility] [employer] [facility] 07-10-2015 13:16-0400 BMI (Body Mass Index) 27.95 kg/m2 Dominic Yan [facility] [employer] 07-10-2015 13:16-0400 Body weight 87.09 kg Dominic Yan [facility] [employer] [facility] 07-10-2015 13:16-0400 BP Diastolic 84 mm[Hg] Dominic Yan [facility] [employer] [facility] 07-10-2015 13:16-0400 BP Diastolic 80 mm[Hg] Dominic Yan [facility] [employer] 07-10-2015 13:16-0400 BP Systolic 154 mm[Hg] Dominic Yan [facility] [employer] 07-10-2015 13:16-0400 BP Systolic 144 mm[Hg] Dominic Yan Pl[employer]mer [employer] 07-10-2015 13:16-0400 BSA (Body Surface Area) 2.07 m2 Dominic [employer] 07-10-2015 13:16-0400 Height 176.53 cm Dominic [employer] 07-10-2015 13:16-0400 Pulse (Heart Rate) 62 /min Dominic Lorenzo [email or web address] 07-10-2015 13:16-0400 Weight 87.09 kg Dominic Yan [employer] 07-11-2014 17:42-0400 BMI (Body Mass Index) 27.95 kg/m2 Dominic [employer] 07-11-2014 17:42-0400 Body weight 87.09 kg Dominic Yan [employer] 07-11-2014 17:42-0400 BP Diastolic 76 mm[Hg] Dominic Yan [employer] [facility] 07-11-2014 17:42-0400 BP Diastolic 84 mm[Hg] Dominic Yan [employer] 07-11-2014 17:42-0400 BP Systolic 140 mm[Hg] Dominic Yan [employer] 07-11-2014 17:42-0400 BP Systolic 130 mm[Hg] Dominic Yan [employer] 07-11-2014 17:42-0400 BSA (Body Surface Area) 2.07 m2 Dominic Yan Pl[employer] 07-11-2014 17:42-0400 Height 176.53 cm Dominic Yan [employer] 07-11-2014 17:42-0400 Pulse (Heart Rate) 72 /min Dominic Lorenzo [email or web address] 07-11-2014 17:42-0400 Weight 87.09 kg Dominic Plummer [employer] 04-13-2013 15:51-0400 BMI (Body Mass Index) 28.24 kg/m2 Dominic Plummer [employer] 04-13-2013 15:51-0400 Body weight 88 kg Dominic Plummer [employer] 04-13-2013 15:51-0400 BP Diastolic 74 mm[Hg] Dominic Plummer [employer] 04-13-2013 15:51-0400 BP Systolic 148 mm[Hg] Dominic Plummer [employer] 04-13-2013 15:51-0400 BP Systolic 146 mm[Hg] Dominic [employer] 04-13-2013 15:51-0400 BSA (Body Surface Area) 2.08 m2 Dominic Plummer [employer] 04-13-2013 15:51-0400 Height 176.53 cm Dominic Yan [employer] 04-13-2013 15:51-0400 Pulse (Heart Rate) 76 /min Dominic Lorenzo [facility] [employer] 04-13-2013 15:51-0400 Weight 88 kg Dominic SingletonC[employer]urative Encounters Encounter Date Encounter Type Care Provider Facility Start: 05-06-2024 End: 05-06-2024 ambulatory [facility] Work Phone: Start: 05-06-2024 End: 05-06-2024 Patient encounter procedure [facility] Work Phone: Start: 03-05-2024 Non-patient / Non-visit [facility] Work Phone: Start: 02-18-2024 End: 02-18-2024 ambulatory [facility] Work Phone: Start: 02-18-2024 End: 02-18-2024 [facility] Work Phone: Start: 01-15-2024 Non-patient / Non-visit [facility] Work Phone: Start: 01-14-2024 Non-patient / Non-visit [facility] Work Phone: Start: 01-13-2024 Non-patient / Non-visit [facility] Work Phone: Start: 01-05-2024 Non-patient / Non-visit [facility] Work Phone: Start: 12-19-2023 End: 12-19-2023 ambulatory Pramod Smith Other [employer] Other Start: 12-19-2023 Telephone encounter Pramod [facility] Start: 12-11-2023 End: 12-11-2023 ambulatory MARCIA S CRISTIANO [facility] Start: 12-11-2023 End: 12-11-2023 Office outpatient visit 25 minutes Marcia Plunkett PA Work Phone: [facility] Comment on above: Disc displacement, l umbar (Primary Dx); Lumbosacral spondylosis without myelopathy; Chronic bilateral low back pain, unspecified whether sciatica present Start: 12-04-2023 End: 12-05-2023 ambulatory PRAMOD Mena LUIS [facility] Start: 11-05-2023 End: 11-05-2023 ambulatory Pramod Smith Other [employer] Other Start: 11-05-2023 Telephone encounter Pramod [facility] Start: 10-13-2023 End: 10-13-2023 ambulatory Pramod Smith Other [employer] Other Start: 10-13-2023 Telephone encounter Pramod Ball [facility] Start: 07-23-2023 End: 07-23-2023 ambulatory Pramod Ball Other [employer] Other Start: 07-23-2023 Office outpatient vi sit 25 minutes Pramod Ball [facility] Start: 07-23-2023 Telephone encounter Pramod Ball [facility] Start: 07-17-2023 End: 07-17-2023 ambulatory Pramod Ball Other [employer] Other Start: 07-17-2023 Telephone encounter Pramod Ball [facility] Start: 06-18-2023 End: 06-18-2023 ambulatory Pramod Ball Other [employer] Other Start: 06-18-2023 Telephone encounter Pramod Ball [facility] Start: 06-17-2023 End: 06-17-2023 ambulatory Pramod Ball Other [employer] Other Start: 06-17-2023 Telephone encounter Pramod Ball [facility] Start: 06-12-2023 End: 06-12-2023 ambulatory Pramod Ball Other [employer] Other Start: 06-12-2023 Telephone encounter Pramod Ball [facility] Start: 05-08-2023 End: 05-08-2023 ambulatory Pramod Ball Other [employer] Other Start: 05-08-2023 Telephone encounter Pramod Ball [facility] Start: 04-25-2023 End: 04-25-2023 ambulatory Pramod Ball Other [employer] Other Start: 04-25-2023 Telephone encounter Pramod Ball [facility] Start: 04-21-2023 End: 04-21-2023 ambulatory Pramod Ball Other [employer] Other Start: 04-21-2023 Patient encounter procedure Pramod Smith [facility] Start: 03-28-2023 End: 03-28-2023 ambulatory Pramod Smith Other [employer] Other Start: 03-28-2023 Telephone encounter Pramod Smith [facility] Start: 03-15-2023 End: 03-15-2023 ambulatory Pramod Smith Other [employer] Other Start: 03-15-2023 Telephone encounter Pramod Smith [facility] Start: 01-15-2023 End: 01-15-2023 ambulatory Pramod Luis Other [employer] Other Start: 01-15-2023 Office outpatient vi sit 25 minutes Pramod Luis [facility] Start: 01-13-2023 End: 01-14-[address] PRAMOD SMITH Facility:[facility] Start: 01-02-2023 End: 01-02-2023 ambulatory Pramod Smith Other [employer] Other Start: 01-02-2023 Telephone encounter Pramod Smith [facility] Start: 07-01-2022 End: 07-01-[address] PRAMOD SMITH Facility:[facility] Start: 04-03-2022 End: 04-04-[address] PRAMOD SMITH Facility:[facility] Start: 04-01-2022 Adult health examination Pramod Smith Other [employer] Other Start: 10-17-2021 Office outpatient vi sit 25 minutes Dominic Yan Other [facility] Start: 03-14-2020 Office outpatient vi sit 25 minutes oDminic Yan Other [facility] Start: 03-09-2019 Office outpatient vi sit 25 minutes Dominic Yan Other [facility] Start: 01-27-2018 Office outpatient vi sit 25 minutes Dominic Yan Other [facility] Start: 01-31-2017 End: 01-31-2017 Split Srvc Óscar Todd Other [facility] Start: 01-27-2017 Office outpatient vi sit 25 minutes Dominic Yan Other [facility] Start: 01-29-2016 Office outpatient vi sit 25 minutes Dominic Yan Other [facility] Start: 07-10-2015 Office outpatient vi sit 25 minutes Dominic Yan Other [facility] Start: 07-11-2014 Office Services Dominic Yan Other [facility] Start: 04-13-2013 Office Services Dominic Yan Other [facility] Office Procedures Date Procedure Procedure Detail Performing Clinician Start: 04-03-[address] FARNCO IN [place] Comment on above: Performed By: #### P SAS #### [facility] [address] [place] [address] Dr. Nahomy Gutiérrez Start: 10-17-2021 Docrev cur meds by nicolasa Yan Start: 03-13-2020 Doc meds verified w/pt or re Dominic Yan Start: 03-05-2019 Doc meds verified w/pt or re Dominic Yan Start: 01-27-2018 Duplex scan extracra nial art uni/lmtd study Dominic Yan Start: 10-21-2017 Screening for malign ant neoplasm of prostate Pramod Luis Other Start: 01-31-2017 Arteriography of hea d and neck Dominic Yan Start: 01-31-2017 Cv strs tst xers&/or rx cont ecg w/si&r Dominic Yan Start: 01-31-2017 Duplex scan extracra nial art compl bi study Dominic Yan Start: 01-31-2017 Duplex scan extracra nial art uni/lmtd study Dominic Yan Start: 01-31-2017 Electrocardiogram wi th exercise test Dominic Yan Start: 01-31-2017 Myocardial spect mul tiple studies Dominic Yan Start: 01-31-2017 Radionuclide myocard ial perfusion study Dominic Yan Start: 01-31-2017 Tc99m seslisset puga Start: 01-27-2017 Ecg routine ecg w/le ast 12 lds w/i&r Dominic Yan Start: 01-27-2017 Duplex scan extracra nial art uni/lmtd study Dominic Yan Start: 01-15-2016 Screening for malign ant neoplasm of colon Pramod Smith Other Start: 01-10-2016 Arteriography of hea d and neck Dominic Yan Start: 01-10-2016 Duplex scan extracra nial art compl bi study Dominic Yan Start: 01-10-2016 Duplex scan extracra nial art uni/lmtd study Dominic Yan Start: 07-10-2015 Doc meds verified w/pt or re Dominic Yan Start: 07-10-2015 Ecg routine ecg w/le ast 12 lds w/i&r Dominic Yan Start: 07-10-2015 TOBACCO NON-USER Dominic Yan Start: 07-10-2015 Duplex scan extracra nial art uni/lmtd study Dominic Yan Start: 07-11-2014 Arteriography of hea d and neck Dominic Yan Start: 07-11-2014 Duplex scan extracra nial art compl bi study Dominic Yan Start: 07-11-2014 Lipid panel Dominic butler Start: 07-11-2014 Lipid panel Dominic butler Depression screening Marley Smith Other Screening for malign ant neoplasm of prostate Pramod Smith Other Plan of Treatment Date Care Activity Detail Author Start: 07-16-2030 DTaP,Tdap and Td Vac cines (2 - Td or Tdap) DTaP,Tdap and Td Vaccines (2 - Td or Tdap) [facility] [employer] [facility] Start: 12-11-2024 Adult BMI Screening Adult BMI Screen ing [facility] [employer] [facility] Start: 12-11-2024 Tobacco Screening Tobacco Screening [facility] [employer] [facility] Start: 07-18-2023 Influenza vaccination Influenza Vacc ine [facility] Start: 01-15-2022 Lipid panel LIPID PROFILE [facility] [employer] Start: 2008 Fall Risk Screening [facility] Start: 1993 Administration of varicella zoster vaccine Zoster (Shingles) Vaccine (1 of 2) [facility] Start: 1961 Adult BMI Follow Up Plan Adult BMI Follow Up Plan [facility] Start: 1955 Depression Screening Depression Scre ening [facility] Start: 1945 Medicare Annual Well ness Visit Medicare Annual Wellness Visit [facility] Comprehensive metabo lic 1999 panel - Serum or Plasma [facility] End: 12-10-2024 MR Lumbar spine WO contrast MR lumbar spine without contrast Imaging Routine Chronic bilateral low back pain, unspecified whether sciatica present 1 Occurrences starting 12/11/2023 until 12/10/2024 [employer] Work Phone: Comment on above: 1 Occurrences starti ng 12/11/2023 until 12/10/[address] [facility] Immunizations Immunization Date Immunization Notes Care Provider Fa cility 07-16-2020 tetanus toxoid, redu lucila diphtheria toxoid, and acellular pertussis vaccine, adsorbed Marcia MARIE Work Phone: [facility] [employer] [facility] 10-21-2017 diphtheria, tetanus toxoids and acellular pertussis vaccine, unspecified formulation Pramod Luis Other [facility] Payers Date Payer Category Payer Private Health Insurance [employer]URANCE [id number] 2022-Present [phone] [address] [address] [place] [address] [id number] 2007 Medicare MEDICARE MEDICAR E PART A & B [id number] 2007-Present [phone] [address] [place] [address] [id number] 1959 Medicare [id number] 1959 Private Health Insurance [id number] 1959 Unknown [id number] 1943 Unknown [id number] 1945 Unknown [id number] 1943 Unknown [id number] 1943 Unknown [id number] 1945 Unknown [id number] Medicare Medicare [id number] Medicare Medicare Outpatient [id number] Unknown [facility] Health Claims [id number] Social History Date Type Detail Facility Start: Former smoker [facility] Start: [facility] Start: 12-28-2020 End: 12-11-2023 [facility] Assigned At [facility] Other Start: 11-17-1982 History of tobacco use Current smoke r [facility] [employer] [facility] Start: 11-17-1982 History of tobacco use Cigarette Smo ker [facility] Start: 12-11-2023 Tobacco use and exposure Smokeless tobacco non-user [facility] Start: 12-11-2023 Alcohol intake Ex-drinker (finding) [facility] Start: 12-28-2020 End: 12-11-2023 History of Social function [facility] Childcare Unknown [facility] Start: 1945 Sex Assigned At Not on file P [facility] Start: 01-05-2024 Tobacco smoking stat us NHIS Never smoked tobacco (finding) [facility] Start: 1945 Sex Assigned At Male F [facility] Clinical Notes 01-01-2022 to 12-19-2023 Note Date & Type Note Facility 12-19-2023 Evaluation note Encounter Date Diagnosis Assessment Notes Dec, Lung nodule (ICD-10 - R91.1) Dec, Pancreatic cyst (ICD-10 - K86.2) [employer] Other 01-25-2024 History of Present illness Narrative* FRANK Solis - 12/11/2023 12:00 PM EST [facility] [address] [place] [address] Patient: Omar Ziegler Sex: male : 1945 Age: 78 y.o. PCP: PRAMOD SMITH, DO 12/11/2023 Omar Ziegler is here for a(n) initial consultation. Chief Complaint Patient presents with Back Pain HPI: Back Pain This is a chronic problem. The current episode started more than 1 year ago (2000 Back Surgery). The problem occurs intermittently. The problem has been gradually worsening since onset. The pain is present in the lumbar spine and gluteal. The quality of the pain is described as aching. The pain does not radiate. The pain is at a severity of 5/10. The pain is moderate. The pain is Worse during theday. The symptoms are aggravated by sitting and standing (walking, stairs, pushing, pulling). Stiffness is present All day. Associated symptoms include numbness (fingers) and weakness (back). Pertinent negatives include no chest pain, fever, leg pain or tingling. He has tried ice, heat, chiropractic manipulation and home exercises (bending, lying down, lifting, twisting, leaning, coughing, sneezing, Tramadol, Prev Surgery, Tylenol, Massage Therapy, Biofreeze, Lido Patch) for the symptoms. The treatment provided moderate relief. The effect of pain on patient's ADLS: Moderate Impairment. Past Medical History: Diagnosis Date Acute lower gastrointestinal bleeding Anxiety ASHD (arteriosclerotic heart disease) Bowel wall thickening Bronchitis, acute Carotid bruit Cervical disc disorder Cervical spondylosis History of chicken pox History of seasonal allergies HL (hearing loss) HTN (hypertension) Hyperlipidemia type II Hypothyroidism Kidney stones Low back pain Lumbar spondylosis Lumbosacral disc disease Lung nodule Neck pain Nicotine dependence Pancreatic cyst Post-herpetic polyneuropathy Visual impairment Vitamin D deficiency Past Surgical History: Procedure Laterality Date BACK SURGERY 1999, 2000, Lumbar-Implants CARDIAC CATHETERIZATION 2000 CARDIAC SURGERY 2009 COLONOSCOPY N/A 01/01/2022 Performed by Ab Oliva MD at [facility] NECK SURGERY Cervical Spine-Implants THYROID SURGERY 2007 TONSILLECTOMY AND ADENOIDECTOMY Allergies Allergen Reactions Morphine Confusion Simvastatin Family History Problem Relation Age of Onset Coronary artery disease Father Social History Socioeconomic History Marital status: Spouse name: Not on file Number of children: Not on file Years of education: Not on file Highest education level: Not on file Occupational History Not on file Tobacco Use Smoking status: Former Types: Cigarettes Start date: 11/17/1982 Smokeless tobacco: Never Substance and Sexual Activity Alcohol use: Not Currently Drug use: Never Sexual activity: Defer Other Topics Concern Not on file Social History Narrative Not on file Social Determinants of Health Financial Resource Strain: Not on file Food Insecurity: No Food Insecurity (12/11/2023) Hunger Screening Food Insecurity - Worry: Never True Food Insecurity - Inability: Never True Transportation Needs: Not on file Physical Activity: Not on file Stress: Not on file Social Connections: Not on file Interpersonal Safety: Not on file Housing Instability: Not on file Review of Systems Constitutional: Negative for chills and fever. HENT: Negative. Eyes: Negative. Respiratory: Negative for cough and shortness of breath. Cardiovascular: Negative for chest pain. Gastrointestinal: Negative. Endocrine: Negative. Genitourinary: Negative. Musculoskeletal: Positive for back pain. Skin: Negative. Allergic/Immunologic: Positive for environmental allergies. Neurological: Positive for weakness (back) and numbness (fingers). Negative for tingling. Hematological: Negative. Psychiatric/Behavioral: Negative. Vital Signs: BP (!) 156/115 Pulse 68 Ht 175.3 cm (5' 9 ) Wt 90.3 kg (199 lb) SpO2 99% BMI 29.39 kg/m Physical Exam: GENERAL - Healthy patient that appears stated age. HEENT - Normocephalic / Atraumatic, Extraoccular movements intact, trachea midline, thyroid within normal limits. CV - pulse regular, Warm extremities with appropriate color of nailbeds. RESP - No obvious wheezing, No Shortness of Breath, No overexertion response to exam maneuvers. COORDINATION - remains intact. PSYCH - Alert and Oriented x4, Attentive and appropriate, constitutionally normal, displays normal mood and affect per situation, answered questions appropriately during examination, demonstrated appropriate attention during discussion, demonstrated appropriate cognitive reasoning and understandingof the medical condition by asking appropriate questions regarding the diagnosis and risks/benefits/alternatives of treatment modalities. No obvious deficits in memory, reasoning, or intellect. Lumbar: SKIN - No rashes or bruising in the area of the patient s pain. LYMPH NODES - demonstrate no obvious enlargement. EXTREMITIES - Lower extremities are warm, with minimal edema and palpable pulses. Tenderness to palpation noted in the lumbar spine and paraspinal musculature. Pain is elicited withflexion, extension, and lateral rotation of the lumbar spine. Range of motion is diminished with these motions due to pain. Facet palpation is noted to be somewhat tender and facet loading maneuvers are mildly positive, but not concordant with the patient s normal pain complaints. STRENGTH - noted to be 5 out of 5 all muscle groups bilateral lower extremities including muscles involving hip flexion and abduction, knee flexion and extension, as well as foot dorsiflexion and plantarflexion. No notable atrophy, fasciculations or spasm. SENSORY - No notable sensory deficits in the bilateral lower extremities to touch or pinprick in all dermatomal distributions. Straight Leg Raise is Positive on the Right. Tenderness to palpation is noted over the Bilateral SacroIliac Joint: Fabere sign (Reagan's Test) is significantly positive, as is compression and distraction of the sacroiliac joints, which is consistent with some of the patient's normal pain. Gait is normal. Assessment/Treatment Plan: Omar was seen today for back pain. Diagnoses and all orders for this visit: Disc displacement, lumbar - Ambulatory referral to Physical Therapy; Future Lumbosacral spondylosis without myelopathy - Ambulatory referral to Physical Therapy; Future Chronic bilateral low back pain, unspecified whether sciatica present - MR lumbar spine without contrast; Future Physical/Aquatic Therapy - It is felt that the patient will benefit from a course of physical therapy focusing on the above mentioned diagnosis. We will recommend that the physical therapist fully evaluate and treat at their discretion considering the modalities that are most useful for the condition being treated. This may i nclude modalities of comfort including moist heat, ultrasound, and TENS therapy. It may also utilize manual therapy and myofascial release for the myofascial component of the patient s pain. It will likely advance to modalities aimed at stabilizing and strengthing the target area while improving range of motion as well. We are also requesting that the physical therapist send notes that will keep our clinic updated to the patient s progress. Lumbar spine MRI - It is felt that additional diagnostic testing is necessary to further evaluate the patients currentpain pathology. For this reason, we will order additional imaging noted above. It is hopeful that this study will identify a significant pain generator that will be amenable to therapy. It is felt that this modality is necessary due to the severity and chronicity of symptoms and physical exam findings combined with the lack of recent imaging of the area. An MRI is specifically felt to be necessary due to the physical exam findings noted above and the patient s description of refractory pain in a neuropathic distribution that is not relieved by change in body position and interferes with the patient s activities of daily living Follow up after MRI The medications I have prescribed have been reviewed for medication interactions/contraindications and/or for upcoming procedures: continue current medication regimen without any changes. DISCUSSION: Treatment options discussed with patient and all questions answered to patient's satisfaction. Discussed the rules and regulations surrounding prescription of opioids and compliance at length. Failure to follow the rules and regulation will result in tapering and discontinuation of medications if applicable. Prescribed medication that requires intensive monitoring for toxicity We do not currently prescribeany controlled substance from this practice. Treatment plans discussed but not opted for at this time: Lumbar Epidural steroid injections and /or SI joint injections. Patient would like to proceed with the current outlined treatment plan before moving forward with any other options. The spine model was demonstrated and Xray was reviewed and used to explain the condition. Chronic conditions not treated during this visit that affected my overall medical decision making: Obesity and CAD OARRS: Reviewed. Scribe Statement: Scribed for and in the presence of FRANK SOLIS by Jojo Yao CNA. Provider Statement: I, FRANK SOLIS, personally performed the services described in the documentation, as scribed by Jojo Yao CNA in my presence, and it is both accurate and complete. Jojo Yao CNA 12/11/23 1334 FRANK Solis 12/16/23 1217 documented in this encounterSt. Albans HospitalPsyQic [facility] [id number] Evaluation note* Encounter Date Diagnosis Assessment Notes Treatment Notes Treatment Clinical Notes Sep, ASHD (arteriosclerotic heart disease) (ICD-10 - I25.10) [employer] Other 09-06-2023 Evaluation note* Encounter Date Diagnosis Assessment Notes Treatment Notes Treatment Clinical Notes Jul, Primary hypertension (ICD-10 - I10) This patient is instructed to consume a healthy, low-fat, low-salt diet. They are also encouraged to continue exercise to achieve/maintain a normal BMI. Jul, Arteriosclerotic hea rt disease (ASHD) (ICD-10 - I25.10) This patient is stable without activity related CP, dyspnea or lightheadedness. They are instructed to continue exercise and AHA diet plan. Continue secondary prevention measures. Jul, Pancreatic cyst (ICD -10 - K86.2) MRCP: 15mm cyst 04/07, 10/08, 17mm cyst 06/2023 Continue close monitoring w/ MRCP q 6mo Increased in size 2mm over 1.5 years Radiologist indicates no suspicious characteristics and recommends continue close surveillance. Jul, Lumbar spondylosis (ICD-10 - M47.816) The patient is instructed to avoid bending, twisting or lifting. They are to use intermittent heat and ice as needed. They may schedule a massage or gentle manipulation. They may safely use Tylenol as needed. Offered PT, holding for now Jul, Lung nodule (ICD-10 - R91.1) CT chest: 7.5mm nodule 01/08, 07/08, 01/09 Surveillance UTD w/o change in size of nodules over 1.5 years. Jul, Hypercholesteremia (ICD-10 - E78.00) Instructed on diet and exercise with continued statin therapy.Discussed the beneficial effects of lowering cholesterol in reducing the risk for cerebrovascular and cardiovascular disease. 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) Intermittent numbness w/o weakness Recommend continued monitoring w/ referral for increased symptoms [employer] Other 08-31-2023 Evaluation note* Encounter Date Diagnosis Assessment Notes Treatment Notes Treatment Clinical Notes Jun, Pancreatic cyst (ICD-10 - K86.2) MRCP: - 15mm cyst 04/07, 10/08, - 17mm cyst 06/2023 [employer] Other 08-01-2023 Evaluation note* Encounter Date Diagnosis Assessment Notes Treatment Notes Treatment Clinical Notes Jun, Pancreatic cyst (ICD-10 - K86.2) MRCP: - 15mm cyst 04/07, 10/08, - 17mm cyst 06/2023 [employer] Other 06-22-2023 Evaluation note* Encounter Date Diagnosis Assessment Notes Treatment Notes Treatment Clinical Notes Apr, AGUSTINA (generalized anxiety disorder) (ICD-10 - F41.1) [employer] Other 06-05-2023 Evaluation note* Encounter Date Diagnosis Assessment Notes Treatment Notes Treatment Clinical Notes Apr, Medicare annual well ness visit, subsequent (ICD-10 - Z00.00) Personalized health advice was given to the beneficiary including a written plan for screenings discussed and provided. Advanced care planning reviewed and/or information given as requested. Additional counseling was provided here today in regards to, [ ]. The above visit was performed by [ ], under direct supervision of [ ]. Document reviewed and amended by provider signed below. Healthy diet and exercise. Reviewed age-appropriate preventive testing recommended. Apr, Arteriosclerotic hea rt disease (ASHD) (ICD-10 - I25.10) This patient is stable without activity related CP, dyspnea or lightheadedness. They are instructed to continue exercise and AHA diet plan. Apr, Primary hypertension (ICD-10 - I10) This patient is instructed to consume a healthy, low-fat, low-salt diet. They are also encouraged to continue exercise to achieve/maintain a normal BMI. Apr, Pancreatic cyst (ICD -10 - K86.2) MRCP: 15mm cyst 04/07, 10/08 Overdue for MRI - awaiting for back pain to resolve, will schedule thereafter Apr, Lung nodule (ICD-10 - R91.1) CT chest: 7.5mm nodule 01/08, 07/08, 01/09 Denies cough, dyspnea or hemoptysis Continue surveillance CT Apr, Acute bilateral low back pain without sciatica (ICD-10 - M54.50) The patient is instructed to avoid bending, twisting or lifting. They are to use intermittent heat and ice as needed. They may schedule a massage or gentle manipulation. They may safely use Tylenol as needed. XR if fails to improve Monitor for radicular pain, N/T or weakness Monitor for bowel or bladder dysfunction Apr, Lumbar spondylosis (ICD-10 - M47.816) Requires opiates on daily basis to continue w/ ADL and sleep. Apr, AGUSTINA (generalized anx iety disorder) (ICD-10 - F41.1) Healthy diet, exercise w/o change in medical treatment Apr, Hypercholesteremia (ICD-10 - E78.00) Apr, Hypothyroidism, postablative (ICD-10 - E89.0) Euthyroid, TSH yearly Apr, Nicotine dependence, cigarettes, in remission (ICD-10 - F17.211) Apr, Screening PSA (prost ate specific antigen) (ICD-10 - Z12.5) Apr, High risk medication use (ICD-10 - Z79.899) [employer] Other 05-12-2023 Evaluation note* Encounter Date Diagnosis Assessment Notes Treatment Notes Treatment Clinical Notes March, AGUSTINA (generalized anxiety disorder) (ICD-10 - F41.1) [employer] Other 04-29-2023 Evaluation note* Encounter Date Diagnosis Assessment Notes Treatment Notes Treatment Clinical Notes Feb, Pancreatic cyst (ICD-10 - K86.2) MRCP: 15mm cyst 04/07, 10/08 [employer] Other 03-01-2023 Evaluation note* Encounter Date Diagnosis Assessment Notes Treatment Notes Treatment Clinical Notes Jan, Arteriosclerotic hea rt disease (ASHD) (ICD-10 - I25.10) This patient is stable without activity related CP, dyspnea or lightheadedness. They are instructed to continue exercise and AHA diet plan. Jan, Essential hypertensi on (ICD-10 - I10) This patient is instructed to consume a healthy, low-fat, low-salt diet. They are also encouraged to continue exercise to achieve/maintain a normal BMI. Jan, Hyperlipidemia type II (ICD-10 - E78.01) Diet and exercise Statin intolerance Jan, Lung nodule (ICD-10 - R91.1) CT chest: 7.5mm nodule 01/08, 07/08, 01/[address] surveillance for another year Jan, Pancreatic cyst (ICD-10 - K86.2) MRCP: 15mm cyst 04/07, 10/08 Due for MRCP in Mar, 2023 Jan, Hypothyroidism, postablative (ICD-10 - E89.0) TSH yearly, euthyroid. Jan, Lumbar spondylosis (ICD-10 - M47.816) The patient is instructed to avoid bending, twisting or lifting. They are to use intermittent heat and ice as needed. They may schedule a massage or gentle manipulation. They may safely use Tylenol as needed. Jan, AGUSTINA (generalized anxiety disorder) (ICD-10 - F41.1) Healthy diet, exercise, keep active [employer] Other 02-16-2023 Evaluation note* Encounter Date Diagnosis Assessment Notes Treatment Notes Treatment Clinical Notes Dec, Lung nodule (ICD-10 - R91.1) [employer] Other 02-15-2022 Evaluation note* Encounter Date Diagnosis Assessment Notes Treatment Notes Treatment Clinical Notes Dec, Cyst of pancreas (ICD-10 - K86.2) Continue close imaging surveillance. Radiology describes as benign appearing lesion [employer] Other Evaluation noteNo InformationNort [employer] Other Evaluation note* Diagnosis Disc displacement, lumbar- Primary Displacement of lumbar intervertebral disc without myelopathy Lumbosacral spondylosis without myelopathy Chronic bilateral low back pain, unspecified whether sciatica present [facility] Diagnosis Onset Date Resolution Status ASHD (arteriosclerotic heart disease) acute Elevated cholesterol acute AGUSTINA (generalized anxiety disorder) acute Hypertension acute Hypothyroid acute Lung nodule acute Pancreatic cyst acute [facility] Work Phone: Evaluation note* Diagnosis Onset Date Resolution Status ASHD (arteriosclerotic heart disease) acute Elevated cholesterol acute AGUSTINA (generalized anxiety disorder) acute Hypertension acute Hypothyroid acute Lung nodule acute Pancreatic cyst acute ASHD (arteriosclerotic heart disease) acute Elevated cholesterol acute AGUSTINA (generalized anxiety disorder) acute Hypertension acute Hypothyroid acute Lumbar spondylosis acute Lung nodule acute Pancreatic cyst acute Screening PSA (prostate specific antigen) acute Medicare annual wellness visit, subsequent noneactive [facility] Work Phone: History general Narrative - Reported* Type Description Date Medical History HTN Medical History Hypothyrodism,post ablative Medical History chicken pox Medical History severe disc impairment Medical History bypass -cardiac Medical History seasonal allergies Medical History vit d dif Medical History Lung nodule Medical History Pancreatic cyst Medical History Bowel wall thickening Medical History Lumbar spondylosis Medical History Postprocedural hypothyroidism Medical History Carotid bruit Medical History Hyperlipidemia type II Medical History Arteriosclerotic heart disease ( ASHD) Medical History Acute lower gastrointestinal ble eding Medical History Acute seasonal allergic rhinitis due to pollen Medical History Lumbosacral spondylosis with rad iculopathy Medical History Nicotine dependence, cigarettes, in remission Medical History Post-herpetic polyneuropathy Medical History Acute non-recurrent maxillary si nusitis Medical History Essential hypertension Medical History AGUSTINA (generalized anxiety disorde r) Medical History Primary osteoarthritis of right shoulder Medical History Cervical spondylosis Medical History Acute bronchitis due to other sp ecified organisms Medical History Acute recurrent maxillary sinusi tis Surgical History back surgery Surgical History bypass surgery Surgical History cervical surgery Surgical History T&A Hospitalization History HTN 2006 Hospitalization History SEE ABOVE [employer] Other Hisrxti general Narrative - Reported* Type Description Date Medical History HTN Medical History Hypothyrodism,post ablative Medical History chicken pox Medical History severe disc impairment Medical History bypass -cardiac Medical History seasonal allergies Medical History vit d dif Medical History Lung nodule Medical History Pancreatic cyst Medical History Bowel wall thickening Medical History Lumbar spondylosis Medical History Postprocedural hypothyroidism Medical History Carotid bruit Medical History Hyperlipidemia type II Medical History Arteriosclerotic heart disease ( ASHD) Medical History Acute lower gastrointestinal ble eding Medical History Acute seasonal allergic rhinitis due to pollen Medical History Lumbosacral spondylosis with rad iculopathy Medical History Nicotine dependence, cigarettes, in remission Medical History Post-herpetic polyneuropathy Medical History Acute non-recurrent maxillary si nusitis Medical History Essential hypertension Medical History AGUSTINA (generalized anxiety disorde r) Medical History Primary osteoarthritis of right shoulder Medical History Cervical spondylosis Medical History Acute bronchitis due to other sp ecified organisms Medical History Acute recurrent maxillary sinusi tis Surgical History back surgery Surgical History bypass surgery Surgical History cervical surgery Surgical History T&A Surgical History Colonoscopy w/ polypectomy 01/06 22 Hospitalization History HTN 2005 Hospitalization History SEE ABOVE [employer] Other InstructionsNot on filedocumented in this encounter Ordr.in Summary Purpose Family History Relationship Condition Age at Onset Recorded Date/T gillian father Unknown Coronary artery disease Unknown Not Specified Unknown Advance Directives Latest Code Status on File Code Status Date Activated Date Inactivated Comments Full Code 12/31/2021 11:49 PM 01/01/2022 7:15 PM Advance Directive Response Recorded Date/ Time Advance Directives No December 08, 2023 6:36pm Reason for Referral Specialty Diagnoses / Procedures Referred By Seema leo Referred To Contact Rehabilitation Diagnoses Disc displacement, lumbar Lumbosacral spondylosis without myelopathy Marcia Plunkett PA [address], [address] [place], [place] [id number] Referral ID Status Reason Start Date Expiration Date Visits Requested Visits Authorized [id number] Pending Review Specialty Services Required 12/11/2023 12/10/2024 1 1 Specialty Diagnoses / Procedures Referred By Contac t Referred To Contact Radiology Diagnoses Chronic bilateral low back pain, unspecified whether sciatica present Procedures MR lumbar spine without contrast Marcia Plunkett PA [address], [address] [place] [id number] Referral ID Status Reason Start Date Expiration Date V isits Requested Visits Authorized [id number] Pending Review 12/11/2023 12/10/2024 1 1 Chief Complaint and Reason for Visit Chief Complaint Amb Documentation Amb Documentation Amb Documentation 3 month Reason for Visit ASHD (arteriosclerot ic heart disease) Elevated cholesterol AGUSTINA (generalized anxiety disorder) Hypertension Hypothyroid Lung nodule Pancreatic cyst Chief Complaint 3 month Amb Documentation Medicare Wellness Reason for Visit ASHD (arteriosclerot ic heart disease) Elevated cholesterol AGUSTINA (generalized anxiety disorder) Hypertension Hypothyroid Lung nodule Pancreatic cyst ASHD (arteriosclerotic heart disease) Elevated cholesterol AGUSTINA (generalized anxiety disorder) Hypertension Hypothyroid Lumbar spondylosis Lung nodule Pancreatic cyst Screening PSA (prostate specific antigen) Medicare annual wellness visit, subsequent Additional Source Comments (unrecognized sect ion and content) No Status Records FoundNo Status Records Found INFORMATION SOURCE (unrecogn ized section and content) DATE CREATED AUTHOR 01/18/2023 [facility] DATE CREATED AUTHOR AUTHOR'S ORGANIZ ATION 12/14/2023 [facility] REASON FOR VISIT (unrecogniz ed section and content) Reason Comments Back Pain Care Teams (unrecognized sec tion and content) Team Status: Active Member Role Status Dates Pramod Smith DO Primary Care Provider Active Team Status: Inactive Member Role Status Dates Pramod Smith DO Primary Care Provide r, Attending Provider Active Start: February 18, 2024 End: February 18, 2024 Team Status: Active Member Role Status Dates Pramod Smtih DO Primary Care Provider Active Start: March 05, 2024 NANCY Roberto Attending Provider Active Start : March 05, 2024 Team Status: Inactive Member Role Status Dates Pramod Smith DO Primary Care Provide r, Attending Provider Active Start: May 06, 2024 End: May 06, 2024 Sde Relationship Specialty Start Date End Date Pramod Smith DO [address] [place] [address] PCP - General Internal Medicine 07/16/20 Team Status: Active Member Role Status Dates Pramod Smith DO Primary Care Provider Active Team Status: Active Member Role Status Dates Pramod Smith DO Primary Care Provider Active Start: January 05, 2024 NANCY Gray Attending Provider Active St art: January 05, 2024 Team Status: Active Member Role Status Dates Pramod Smith DO Primary Care Provider Active Start: January 13, 2024 NANCY Gray Attending Provider Active St art: January 13, 2024 Team Status: Active Member Role Status Dates Pramod Smith DO Primary Care Provider Active Start: January 14, 2024 NANCY Roberto Attending Provider Active Start : January 14, 2024 Team Status: Active Member Role Status Dates Pramod Smith , Primary Care Provide r, Attending Provider Active Start: January 15, 2024 Team Status: Inactive Member Role Status Dates Pramod Smith , DO Primary Care Provide r, Attending Provider Active Start: February 18, 2024 End: February 18, 2024 Team Status: Active Member Role Status Dates Pramod Smith DO Primary Care Provider Active Start: March 05, 2024 NANCY Roberto Attending Provider Active Start : March 05, 2024 Team Status: Inactive Member Role Status Dates Pramod Smith , Primary Care Provide r, Attending Provider Active Start: May 06, 2024 End: May 06, 2024 Goals (unrecognized section and content) Goals may be documented in a n alternate section FOR RECORDS PERTAINING TO PATIENTS WHO ARE OR HAVE BEEN ENROLLED IN A CHEMICAL DEPENDENCY/SUBSTANCEABUSE PROGRAM, SOME INFORMATION MAY BE OMITTED. This clinical summary was aggregated from multiple sources. Caution should be exercised in using it in the provision of clinical care. This summary normalizes information from multiple sources, and as a consequence, information in this document may materially change the coding, format and clinical context of patient data. In addition, data may be omitted in some cases. CLINICAL DECISIONS SHOULD BE BASED ON THE PRIMARY CLINICAL RECORDS. [employer] provides no warranty or guarantee of the accuracy or completeness of information in this document.
[2024-05-13 07:56] LABS: Basophils Percent Auto 0.6 % (0.2-2.0); Eosinophils Absolute Auto 0.2 10^3/uL (0.0-0.7); Eosinophils Percent Auto 3.4 % (0.9-7.0); Hematocrit 44.1 % (42.0-54.0); Hemoglobin 14.8 g/dL (14.0-18.0); Immature Granulocytes Abs Auto 0.05 10^3/uL (0.00-0.03); Immature Granulocytes Pct Auto 0.7 % (0.0-0.5); Lymphocytes Absolute Auto 2.4 10^3/uL (1.2-3.8); Lymphocytes Percent Auto 34.3 % (20.5-60.0); Mean Corpuscular HGB Conc 33.6 g/dL (29.9-35.2); Mean Corpuscular Volume 89.5 fL (80.0-94.0); Mean Platelet Volume 10.1 fL (9.5-13.5); Monocytes Percent Auto 14.5 % (1.7-12.0); Neutrophils Absolute Auto 3.3 10^3/uL (1.4-6.5); Neutrophils Percent Auto 46.5 % (43.0-75.0); Platelet Count 227 10^3/uL (150-450); Red Blood Count 4.93 10^6/uL (4.70-6.10); Red Cell Distribution Width 12.4 % (11.0-15.0); White Blood Count 7.1 10^3/uL (4.0-11.0)
[2024-05-13 09:11] LABS: Alanine Aminotransferase 25 U/L (16-63); Alkaline Phosphatase 119 U/L (46-116); Anion Gap 15.8; Aspartate Amino Transferase 17 U/L (15-37); BUN Creatinine Ratio 17.5; Bilirubin Total 0.7 mg/dL (0.2-1.0); Calcium 9.4 mg/dL (8.5-10.1); Carbon Dioxide 23.4 mmol/L (21.0-32.0); Chloride 105 mmol/L (98-107); Chol HDL Ratio 6.4; Cholesterol 212 mg/dL (<=200); Estimated GFR (African America >60 (>=60); Estimated GFR (Non-African Ame 50 (>=60); Globulin 3.9 g/dL; Glucose 115 mg/dL (74-106); HDL Cholesterol 33 mg/dL (40-60); Potassium 4.2 mmol/L (3.5-5.1); Sodium 140 mmol/L (136-145); Total Protein 7.9 g/dL (6.4-8.2); Triglycerides 201 mg/dL (<=150); VLDL CHOLESTEROL 40.2 mg/dL
[2024-05-13 09:38] LABS: Prostate Specific Antigen Scrn 0.41 ng/mL (<=4.00)
== END 2024-05-13 07:22 | disposition home or self-care (01) ==
LOC: LAB 07:25
PROVIDERS: PCP Internal Medicine; Visit Provider Internal Medicine
DX: I25.10 Atherosclerotic heart disease of native coronary artery without angina pectoris (principal); I10 Essential (primary) hypertension; E78.00 Pure hypercholesterolemia, unspecified; E03.9 Hypothyroidism, unspecified; Z12.5 Encounter for screening for malignant neoplasm of prostate; K86.2 Cyst of pancreas
CPT/HCPCS: 36415; 80053; 80061; 84443; 85025; G0103

== ENCOUNTER 2024-05-17 14:44 | Outpatient (OUT) | payer MEDICARE, SELFPAY ==
--- NOTE | 2024-05-17 15:59 | P.CN_ITS ---
Consult Note: HPI Data of Consult Patient: new to practice Consult date: 05/17/24 Requesting Physician: Carlos Manuel Hartley MD Primary Care Provider: Pramod Smith, Consult Narrative Reason for consult: low back, bilateral lower extremity pain Narrative: 78yom who presents for evaluation. longstanding low back, bilateral lower extremity pain. history of fusion from l3-s1. lumbar imaging reviewed, which is significant for severe stenosis at l1-2 and l2-3, with facet arthropathy at those levels noted as well. also foraminal narrowing noted at bilateral l4-5. has completed physical therapy and continues in provider directed home exercises for >6 weeks, without lasting benefit. uses otc pain meds as needed, does not like pain meds. denies adverse med side effects. cc:: CC: Carlos Manuel Hartley MD Review of Systems ROS Status of ROS 10 or more systems reviewed and unremark able except as noted in history and below Exam Narrative Exam Narrative: Psych-alert and oriented x 3. Attentive and appropriate, constitutionally normal, displays normal mood and affect per situation. There are no obvious deficits in memory, reasoning, or intellect.? Skin-no obvious rashes, bruising, erythema noted to the patient's area of pain.? Extremities- extremities are warm with minimal edema and palpable pulses. Lumbar-tenderness to palpation noted in the lumbar spine and paraspinal musculature. Pain is elicited with flexion, extension, and lateral rotation of the lumbar spine. Range of motion is diminished with these motions. Facet loading maneuvers are positive.? Strength-noted to be unremarkable with the exception of decreased strength rated at 4 out of 5 in bilateral quadriceps femoris, anterior tibialis. Sensory-no notable sensory deficits in the bilateral lower extremities to touch or pinprick in all dermatomal distributions with the exception to decreased sensation to the bilateral L2, 3, 4 dermatomal distribution Coordination remains intact.? Gait remains non-antalgic. Assessment and Plan Assessment and Plan (1) Lumbar stenosis with neurogenic claudication: (2) Lumbar spondylosis: (3) Lumbar postlaminectomy syndrome: Plan 78yom who presents for evaluation. failed conservative measures, as noted. imaging reviewed, as noted. given symptoms and imaging, prudent to attempt bilateral l2-3 tfesi under fluoroscopic guidance. depending on response, may benefit from bilateral l4-5 tfesu under fluoroscopic guidance. he is in agreement. meds reviewed, no changes. follow up after procedure.
== END 2024-05-17 14:45 | disposition home or self-care (01) ==
LOC: PM 14:45
PROVIDERS: PCP Internal Medicine; Visit Provider Anesthesiology
DX: M48.062 Spinal stenosis, lumbar region with neurogenic claudication (principal); M47.816 Spondylosis without myelopathy or radiculopathy, lumbar region; M96.1 Postlaminectomy syndrome, not elsewhere classified
CPT/HCPCS: G0463

== ENCOUNTER 2024-05-24 10:54 | Day surgery (SDC) | payer MEDICARE, SELFPAY ==
[2024-05-24 11:09] VITALS: BP 191/100; PULSE 74; TEMP 36.6; O2SAT 97
--- OUTSIDE RECORDS SUMMARY | 2024-05-24 11:13 | XMS_ITS | CCD ---
Author Organization [facility] Care Team Providers Care Automation Qtp Tester Name Role Phone Dominic Yan Primary Care [...] Luis, Pramod Unavailable PRAMOD SMITH Referring Unavailable RPAMOD SMITH Primary Care Unavailable MARCIA PLUNKETT Attending Unavailable PRAMOD SMITH Referring Unavailable PRAMOD SMITH Primary Care Unavailable Pramod Smith DO Primary Care Provider Naeem CABEZAS, Carlos Manuel Hagan Attending Unavailable Allergies Allergy Classification Reported Allergen(s) Allergy Type Date of Onset Reaction(s) Facility Cholesterol Absorption Inhibitors (1 source) ezetimibe Drug Allergy 4 Unknown Reaction [facility] Doxycycline (1 source) Doxycycline Drug Allergy 4 Unknown Reaction [facility] HMG-CoA Reductase Inhibitors (statins) (1 source) Simvastatin Drug Allergy 4 Unknown Reaction [facility] Opioid Agonists (1 source) Morphine Drug Allergy 4 mood disturbance [facility] venlafaxine (1 source) venlafaxine Drug Allergy 4 Unknown Reaction [facility] (5 sources) atorvastatin; Translations: [Lipitor] Drug Allergy MYALGIAS [facility] (5 sources) ezetimibe; Translations: [Zetia] Drug Allergy MYALGIAS [facility] (5 sources) ezetimibe / Simvastatin; Translations: [Vytorin 10-10] Drug Allergy MYALGIAS Jean [facility] ([facility] [employer]) (5 sources) Lovastatin; Translations: [lovastatin] Drug Allergy MYALGIAS [facility] ([facility] (1 source) Pravastatin; Translations: [pravastatin] Drug Allergy MYALGIAS [facility] ([facility] (5 sources) rosuvastatin; Translations: [Crestor] Drug Allergy MYALGIAS [facility] ([facility] (4 sources) Pravastatin; Translations: [pravastatin] Drug Allergy MYALGIAS Jean [facility] ([facility] [employer]) (18 sources) ezetimibe Drug Allergy 4 Unknown, Unknown Reaction [facility] (20 sources) Morphine; Translations: [MORPHINE] Drug Allergy 0 Confusion [facility] (11 sources) Doxycycline Drug Allergy 4 Unknown, Unknown Reaction [facility] (13 sources) Simvastatin; Translations: [SIMVASTATIN] Drug Allergy 4 Unknown, Unknown Reaction [facility] (11 sources) venlafaxine Drug Allergy 4 Unknown, Unknown Reaction [facility] (4 sources) patient allergy list reviewed by nurse or physicia Propensity to adverse reactions 9 Comment:Done [email or web address] Other Medications Current Medications Medication Drug Class(es) [...] Active Start: 01-29-2016 take 1 tablet by [facility] three times daily clonazepam 0.5 mg oral tablet 01/29/2016 take 1 tablet (0.5 mg) by oral route 3 times per day take 0.5 tablet [address] [facility] every twelve hours KlonoPIN 0.5 MG 0.5 tablet Orally Twice a day Not-Taking/PRN take 1 tablet by bj every twenty-four hours clonazePAM 0.5 MG 1 tablet at bedtime Orally Once a day Active colestipol hydrochloride 1000 mg oral tablet (20 sources) Bile Acid Sequestrant Start: 02-17-2024 take 2 g by mouth once daily Colestipol Active 2 GM PO Daily February 17, 2024 12:00am Start: 10-17-2021 take 1 tablet by bj [...] chew and/or divide. take 2 tablets by [facility] every twenty-four hours Colestipol HCl 1 GM 2 tablets Orally Once a day Active take 1 tablet by [facility] at bedtime colestipoL (COLESTID) 1 g tablet Take 1 tablet (1 g total) by mouth in the morning and 1 tablet (1 g total) before bedtime. 0 Active take 2 tablets by [facility] every twenty-four hours Colestipol HCl 1 GM [...] 7:23pm Start: 01-27-2017 take 1 tablet by [facility] once daily Synthroid 100 mcg oral tablet 01/27/2017 take 1 tablet (100 mcg) by oral route once daily take 1 capsule by [facility] once daily Levothyroxine Sodium 112 MCG TAKE ONE CAPSULE BY MOUTH DAILY Active take 1 capsule by [facility] once daily Levothyroxine Sodium 112 MCG TAKE [...] March 29, 2024 1:09pm Start: 10-17-2021 End: 11-26-2022 take 1 tablet by mouth once daily [...] MOUTH DAILY take 1 tablet by bj every twenty-four hours Lisinopril 10 MG 1 [...] DAILY Start: 10-17-2021 take 1 tablet by [facility] twice daily metoprolol tartrate 25 mg oral tablet 10/17/2021 TAKE ONE TABLET BY MOUTH TWICE DAILY Start: 03-09-2019 take 1 tablet by [facility] twice daily metoprolol tartrate 25 mg oral [...] 1 tablet by mouth once daily vitamin I79-xzvpb acid 500-400 mcg oral tablet take 1 tablet by oral route daily folic acid 0.4 mg / vitamin b12 0.5 mg oral tablet (2 sources) Vitamin B12 take 1 tablet by mouth once daily vitamin H97-djsmb acid 500-400 mcg oral tablet take 1 tablet by oral route daily [employer] [phone] mg oral capsule (5 sources) take 1 capsule by mouth twice daily [facility] [phone] mg oral capsule take 1 capsule by [...] heart disease (20 sources) Coronary atherosclerosis of [place] coronary artery; Translations: [Coronary arteriosclerosis] Onset: 4 [...] 5 Chronic Other aftercare (3 sources) Other [facility] (current) drug therapy; Translations: [OTH [facility] CURRENT DRUG THERAPY] Onset: 2 Episodic Other aftercare (4 sources) Long-term current use of drug therapy; Translations: [Other [facility] (current) drug therapy] Episodic Other circulatory disease [...] astIllness_name_27 Onset: 07-10-2015 Unclassified (1 source) [id number] astIllness_name_23 Onset: 07-10-2015 Unclassified (1 source) [id number] astIllness_name_24 Onset: 07-10-2015 Unclassified (1 source) [id number] astIllness_name_27 Onset: 07-10-2015 Unclassified (2 sources) Acute bilateral low back pain without sciatica M54.50 Results Test Name Value Interpretation Reference Range Facility Estimated glomerular filtrat ion rate (GFR) non- Americanon 01-15-2024 GFR/1.73 sq M.predicted among non-blacks MDRD (S/P/Bld) [Vol rate/Area] 55 mL/min/{1.73_m2} >=60 [facility] Laboratory - Chemistry and C hemistry - challengeon 01-15-2024 Creatinine [Mass/Vol] 1.27 mg/dL 0.70-1.30 [facility] GFR/1.73 sq M.predicted MDRD (S/P/Bld) [Vol rate/Area] mL/min/{1.73_m2} >=60 [facility] XR SPINE LUMB COMP INCL BEND [...] Richardson Collado MD on 12/04/2023 12:36 PM [facility] Complete Blood Count and Dif sonal 04-24-2023 Anisocytosis Ql (Bld) [facility] [place] Other Basophilic stippling LM Ql (Bld) [facility] [place] Other RBC morphology finding Nom (Bld) [facility] [place] Other Complete Blood Count and Diff [facility] [place] Other CT CHEST WO CONon 01-13-2023 CT [...] by: JESSICA MELENDEZ Date: 2023-01-13 11:47 Normal [facility] CT chest wo conon 01-13-2023 CT chest wo con [facility] [place] Other CT CHEST WO CONon 07-01-2022 CT [...] JESSICA MELENDEZ Date: 2022-07-01 14:14 Normal [facility] CBC AUTO DIFFon 04-03-2022 BASO # 0.1 103/ul Normal 0.0-0.1 [facility] Comment on above: Performed By: #### C BC #### [facility] [address] [place] [address] Dr. Nahomy Gutiérrez Basophils/100 WBC (Bld) 0.8 % Normal 0.2-2.0 [facility] Comment on above: Performed By: #### C BC #### [facility] [address] [address] [address] Nahomy Gutiérrez EO # 0.3 103/ul Normal 0.0-0.7 [facility] Comment on above: Performed By: #### C BC #### [facility] [address] [address] [address] Nahomy Gutiérrez Eosinophils/100 WBC (Bld) 4.6 % Normal 0.9-7.0 [facility] Comment on above: Performed By: #### C BC #### [facility] [address] [place] [address] Dr. Nahomy Gutiérrez Erythrocyte distribution width (RBC) [Ratio] 12.4 % Normal 11.0-15.0 [facility] Comment on above: Performed By: #### C BC #### [facility] [address] [place] [address] Dr. Nahomy Gutiérrez Hematocrit (Bld) [Volume fraction] 47.5 % Normal 42.0-54.0 [facility] Comment on above: Performed By: #### C BC #### [facility] [address] [place] [address] Dr. Nahomy Gutiérrez Hemoglobin (Bld) [Mass/Vol] 15.9 g/dL Normal 14.0-18.0 [facility] Comment on above: Performed By: #### C BC #### [facility] [address] [place] [address] Dr. Nahomy Gutiérrez IG # 0.02 10e3/ul Normal 0.00-0.03 [facility] Comment on above: Performed By: #### C BC #### [facility] [address] [place] [address] Dr. Nahomy Gutiérrez IG % 0.3 % Normal 0.0-0.5 [facility] Comment on above: Performed By: #### C BC #### [facility] [address] [place] [address] Dr. Nahomy Gutiérrez LYMPH # 2.0 103/ul Normal 1.2-3.8 [facility] Comment on above: Performed By: #### C BC #### [facility] [address] [place] [address] Dr. Nahomy Gutiérrez Lymphocytes/100 WBC (Bld) 31.9 % Normal 20.5-60.0 [facility] Comment on above: Performed By: #### C BC #### [facility] [address] [place] [address] Dr. Nahomy Gutiérrez MANUAL DIFF REQ NO Normal [facility] Comment on above: Performed By: #### C BC #### [facility] [address] [place] [address] Dr. Nahomy Gutiérrez MCH (RBC) [Entitic mass] 30.5 pg Normal 25.9-34.0 [facility] Comment on above: Performed By: #### C BC #### [facility] [address] [place] [address] Dr. Nahomy Gutiérrez MCHC (RBC) [Mass/Vol] 33.5 g/dL Normal 29.9-35.2 [facility] Comment on above: Performed By: #### C BC #### [facility] [address] [place] [address] Dr. Nahomy Gutiérrez MCV (RBC) [Entitic vol] 91.0 fL Normal 80.0-94.0 [facility] Comment on above: Performed By: #### C BC #### [facility] [address] [place] [address] Dr. Nahomy Gutiérrez MONO # 0.9 103/ul Critically high 0.3-0.8 [facility] Comment on above: Performed By: #### C BC #### [facility] [address] [place] [address] Dr. Nahomy Gutiérrez Monocytes/100 WBC (Bld) 14.8 % Critically high 1.7-12.0 [facility] Comment on above: Performed By: #### C BC #### [facility] [address] [place] [address] Dr. Nahomy Gutiérrez NEUT # 2.9 103/ul Normal 1.4-6.5 [facility] Comment on above: Performed By: #### C BC #### [facility] [address] [place] [address] Dr. Nahomy Gutiérrez Neutrophils/100 WBC (Bld) 47.6 % Normal 43.0-75.0 [facility] Comment on above: Performed By: #### C BC #### [facility] [address] [place] [address] Dr. Nahomy Gutiérrez Platelet mean volume (Bld) [Entitic vol] 9.4 fL Critically low 9.5-13.5 [facility] Comment on above: Performed By: #### C BC #### [facility] [address] [place], [place] [id number] Dr. Nahomy Gutiérrez PLT 215 103/ul Normal 150-450 [facility] Comment on above: Performed By: #### C BC #### [facility] [address] [place] [address] Dr. Nahomy Gutiérrez RBC 5.22 106/ul Normal 4.70-6.10 [facility] Comment on above: Performed By: #### C BC #### [facility] [address] [place] [address] Dr. Nahomy Gutiérrez WBC 6.1 103/ul Normal 4.0-11.0 [facility] Comment on above: Performed By: #### C BC #### [facility] [address] [place] [address] Dr. Nahomy Gutiérrez LIPID PROFILEon 04-03-2022 CHOL-HDL RATIO NORM SEE BELOW Normal [facility] Comment on above: Result Comment: 3.3 - 4.4 LOW RISK 4.4 - 7.1 AVERAGE RISK 7.1 - 11.0 MODERATE RISK >11.0 HIGH RISK Performed By: #### T SH, LIPID, ALT, BMP #### [facility] [address] [place] [address] Dr. Nahomy Gutiérrez Cholesterol [Mass/Vol] 206 mg/dL Critically high <=200 [facility] Comment on above: Performed By: #### T SH, LIPID, ALT, BMP #### [facility] [address] [place] [address] Dr. Nahomy Gutiérrez Cholesterol in HDL [Mass/Vol] 31 mg/dL Critically low 40-60 [facility] Comment on above: Performed By: #### T SH, LIPID, ALT, BMP #### [facility] [address] [place] [address] Dr. Nahomy Gutiérrez Cholesterol in LDL [Mass/Vol] 121.4 mg/dL Normal [facility] Comment on above: Performed By: #### T SH, LIPID, ALT, BMP #### [facility] [address] [place] [address] Dr. Nahomy Gutiérrez Cholesterol.total /Cholesterol in HDL [Mass ratio] 6.6 {ratio} Normal [facility] Comment on above: Performed By: #### T SH, LIPID, ALT, BMP #### [facility] [address] [address] [address] Nahomy Gutiérrez HDL NORMAL > or = 60 mg/dl - LOW CARDIOVASCULAR RISK <40 mg/dl - HIGH CARDIOVASCULAR RISK Normal [facility] Comment on above: Performed By: #### T SH, LIPID, ALT, BMP #### [facility] [address] [address] [address] Nahomy Gutiérrez LDL CALC NORMAL SEE BELOW Normal [facility] Comment on above: Result Comment: <100 mg/dl OPTIMAL 100 - 129 mg/dl NEAR OR ABOVE OPTIMAL 130 - 159 mg/dl BORDERLINE HIGH 160 - 189 mg/dl HIGH >190 mg/dl VERY HIGH Performed By: #### T SH, LIPID, ALT, BMP #### [facility] [address] [address] [address] Nahomy Gutiérrez Triglyceride [Mass/Vol] 268 mg/dL Critically high <=150 [facility] Comment on above: Performed By: #### T SH, LIPID, ALT, BMP #### [facility] [address] [address] [address] Nahomy Gutiérrez VLDL CALC 53.6 mg/dL Normal [facility] Comment on above: Performed By: #### T SH, LIPID, ALT, BMP #### [facility] [address] [address] [address] Nahomy Gutiérrez PROF CHEM 8 (BAS METB)on Anion gap [Moles/Vol] 14.3 mmol/L Normal [facility] Comment on above: Performed By: #### T SH, LIPID, ALT, BMP #### [facility] [address] [place] [address] Dr. Nahomy Gutiérrez Calcium [Mass/Vol] 9.0 mg/dL Normal 8.5-10.1 [facility] Comment on above: Performed By: #### T SH, LIPID, ALT, BMP #### [facility] [address] [place] [address] Dr. Nahomy Gutiérrez Chloride [Moles/Vol] 104 mmol/L Normal 98-107 [facility] Comment on above: Performed By: #### T SH, LIPID, ALT, BMP #### [facility] [address] [address] [address] Nahomy Gutiérrez CO2 [Moles/Vol] 23.1 mmol/L Normal 21.0-32.0 [facility] Comment on above: Performed By: #### T SH, LIPID, ALT, BMP #### [facility] [address] [place] [address] Dr. Nahomy Gutiérrez Creatinine [Mass/Vol] 1.15 mg/dL Normal 0.70-1.30 [facility] Comment on above: Performed By: #### T SH, LIPID, ALT, BMP #### [facility] [address] [place] [address] Dr. Nahomy Gutiérrez EGFR-AF GEORGIAN >60 Normal >=60 [facility] Comment on above: Performed By: #### T SH, LIPID, ALT, BMP #### [facility] [address] [place] [address] Dr. Nahomy Gutiérrez EGFR-NON AF GEORGIAN >60 Normal >=60 [facility] Comment on above: Performed By: #### T SH, LIPID, ALT, BMP #### [facility] [address] [place] [address] Dr. Nahomy Gutiérrez Glucose [Mass/Vol] 106 mg/dL Normal 74-106 [facility] Comment on above: Performed By: #### T SH, LIPID, ALT, BMP #### [facility] [address] [place] [address] Dr. Nahomy Gutiérrez Potassium [Moles/Vol] 4.4 mmol/L Normal 3.5-5.1 [facility] Comment on above: Performed By: #### T SH, LIPID, ALT, BMP #### [facility] [address] [place] [address] Dr. Nahomy Gutiérrez Sodium [Moles/Vol] 137 mmol/L Normal 136-145 [facility] Comment on above: Performed By: #### T SH, LIPID, ALT, BMP #### [facility] [address] [place] [address] Dr. Nahomy Gutiérrez Urea nitrogen [Mass/Vol] 19.0 mg/dL Critically high 7.0-18.0 [facility] Comment on above: Performed By: #### T SH, LIPID, ALT, BMP #### [facility] [address] [address] [address] Nahomy Gutiérrez Urea nitrogen/Creatini ne [Mass ratio] 16.5 mg/mg Normal [facility] Comment on above: Performed By: #### T SH, LIPID, ALT, BMP #### [facility] [address] [address] [address] Nahomy Gutiérrez SGPTon 04-03-2022 ALT [Catalytic activity/Vol] 29 U/L Normal 16-63 [facility] Comment on above: Performed By: #### T SH, LIPID, ALT, BMP #### [facility] [address] [place] [address] Dr. Nahomy Gutiérrez TSHon 04-03-2022 TSH 1.647 uIU/mL Normal 0.358-3.740 [facility] Comment on above: Performed By: #### T SH, LIPID, ALT, BMP #### [facility] [address] [place] [address] Dr. Nahomy Gutiérrez TSH RANGE SEE BELOW Normal [facility] Comment on above: Result Comment: <0.3 4 UIU/ml HYPERTHYROID 0.34-5.60 UIU/ml EUTHYROID >5.60 UIU/ml HYPOTHYROID Performed By: #### T SH, LIPID, ALT, BMP #### [facility] [address] [place] [address] Dr. Nahomy Gutiérrez Otheron 01-31-2017 Patient Name: Omar Ziegler Invalid Interpretation Code [facility] Vital Signs Date Time Vital Sign Value Performing Clinician Facility 05-06-2024 09:16-040 Body height 175.26 cm [facility] 05-06-2024 09:160400 Body mass index (BMI) [Ratio] 28.8 kg/m2 [facility] 05-06-2024 09:16 Body weight 88.67 kg [facility] 05-06-2024 09:16-0400 Diastolic blood pressure 80 mm[Hg] [facility] 05-06-2024 09:16-0400 Heart rate 76 /min [facility] 05-06-2024 09:16-0400 Respiratory rate 12 /min [facility] 05-06-2024 09:16-0400 Systolic blood pressure 130 mm[Hg] [facility] 02-18-2024 09:50-0400 Body height 175.26 cm [facility] 02-18-2024 09:50-0400 Body mass index (BMI) [Ratio] 29.5 kg/m2 [facility] 02-18-2024 09:50-0400 Body weight 90.83 kg [facility] 02-18-2024 09:50-0400 Diastolic blood pressure 96 mm[Hg] [facility] 02-18-2024 09:50-0400 Heart rate 73 /min [facility] 02-18-2024 09:50-0400 Respiratory rate 12 /min [facility] 02-18-2024 09:50-0400 Systolic blood pressure 172 mm[Hg] [facility] 12-11-2023 11:38-0500 Body height 175.3 cm Marcia MARIE Work Phone: [facility] 12-11-2023 11:38-0500 Body mass index (BMI) [Ratio] 29.39 kg/m2 Marcia MARIE Work Phone: [facility] 12-11-2023 11:38-0500 Body weight 90.27 kg Marcia MARIE Work Phone: [facility] 12-11-2023 11:38-0500 Diastolic blood pressure 115 mm[Hg] Marcia MARIE Work Phone: [facility] 12-11-2023 11:38-0500 Heart rate 68 /min Marcia MARIE Work Phone: [facility] 12-11-2023 11:38-0500 SaO2% (BldA) [Mass fraction] 99 % Marcia MARIE Work Phone: [employer] 12-11-2023 11:38-0500 Systolic blood pressure 156 mm[Hg] Marcia MARIE Work Phone: [employer] 07-23-2023 10:00-0400 Body height 175.26 cm Pramod Ball Other [email or web address] Other 07-23-2023 10:00-0400 Body mass index (BMI) [Ratio] 29 kg/m2 Pramod Ball Other [email or web address] Other 07-23-2023 10:00-0400 Body weight 89.09 kg Pramod Ball Other [email or web address] Other 07-23-2023 10:00-0400 Diastolic blood pressure 81 mm[Hg] Pramod Ball Other [email or web address] Other 07-23-2023 10:00-0400 Respiratory rate 12 /min Pramod Ball Other [email or web address] Other 07-23-2023 10:00-0400 Systolic blood pressure 133 mm[Hg] Pramod Ball Other [email or web address] Other 04-21-2023 10:00-0400 Body height 175.26 cm Pramod Ball Other [email or web address] Other 04-21-2023 10:00-0400 Body mass index (BMI) [Ratio] 29.15 kg/m2 Pramod Ball Other [email or web address] Other 04-21-2023 10:00-0400 Body weight 89.54 kg Pramod Ball Other [email or web address] Other 04-21-2023 10:00-0400 Diastolic blood pressure 82 mm[Hg] Pramod Ball Other [email or web address] Other 04-21-2023 10:00-0400 Respiratory rate 12 /min Pramod Ball Other [email or web address] Other 04-21-2023 10:00-0400 Systolic blood pressure 130 mm[Hg] Pramod Ball Other [email or web address] Other 01-15-2023 10:00-0500 Body height 175.26 cm Pramod Ball Other [email or web address] Other 01-15-2023 10:00-0500 Body mass index (BMI) [Ratio] 29.86 kg/m2 Pramod Ball Other [email or web address] Other 01-15-2023 10:00-0500 Body weight 91.72 kg Pramod Ball Other [email or web address] Other 01-15-2023 10:00-0500 Diastolic blood pressure 82 mm[Hg] Pramod Ball Other [email or web address] Other 01-15-2023 10:00-0500 Respiratory rate 12 /min Pramod Ball Other [email or web address] Other 01-15-2023 10:00-0500 Systolic blood pressure 118 mm[Hg] Pramod Ball Other [email or web address] Other 10-17-2021 11:57-0500 Body height 173.99 cm Dominic IGA [employer] 10-17-2021 11:57-0500 Body mass index (BMI) [Ratio] 29.67 kg/m2 Dominic IGA [employer] 10-17-2021 11:57-0500 Body surface area Derived from formula 2.08 m2 Dominic Farrah [facility] 10-17-2021 11:57-0500 Body weight 89.81 kg Dominic Yan [facility] 10-17-2021 11:57-0500 Diastolic blood pressure 70 mm[Hg] Dominic Yan [facility] 10-17-2021 11:57-0500 Diastolic blood pressure 80 mm[Hg] Dominic Yan [facility] 10-17-2021 11:57-0500 Heart rate 76 /min Dominic Yan [facility] 10-17-2021 11:57-0500 Systolic blood pressure 120 mm[Hg] Dominic Yan [facility] 10-17-2021 11:57-0500 Systolic blood pressure 134 mm[Hg] Dominic Yan [facility] 03-09-2019 17:19-0400 BP Diastolic 72 mm[Hg] Dominic Yan [facility] 03-09-2019 17:19-0400 BP Systolic 130 mm[Hg] Dominic Yan [facility] 03-09-2019 16:58-0400 BMI (Body Mass Index) 29.07 kg/m2 Dominic Yan [facility] 03-09-2019 16:58-0400 Body weight 89.81 kg Dominic Yan [facility] 03-09-2019 16:58-0400 BP Diastolic 78 mm[Hg] Dominic Yan [facility] 03-09-2019 16:58-0400 BP Diastolic 76 mm[Hg] Dominic Yan [facility] 03-09-2019 16:58-0400 BP Systolic 140 mm[Hg] Dominic [employer] 03-09-2019 16:58-0400 BP Systolic 136 mm[Hg] Dominic [facility] 03-09-2019 16:58-0400 BSA (Body Surface Area) 2.09 m2 Dominic [facility] 03-09-2019 16:58-0400 Height 175.77 cm Dominic [facility] 03-09-2019 16:58-0400 Pulse (Heart Rate) 72 /min Dominic Lorenzo [employer] 03-09-2019 16:58-0400 Weight 89.81 kg Dominic Yan [facility] 01-27-2018 13:55-0400 BMI (Body Mass Index) 28.88 kg/m2 Dominic Yan [facility] 01-27-2018 13:55-0400 Body weight 89.36 kg Dominic Yan [facility] 01-27-2018 13:55-0400 BP Diastolic 82 mm[Hg] Dominic Yan [facility] 01-27-2018 13:55-0400 BP Systolic 136 mm[Hg] Dominic Yan [facility] 01-27-2018 13:55-0400 BP Systolic 130 mm[Hg] Dominic Yan [facility] 01-27-2018 13:55-0400 BSA (Body Surface Area) 2.09 m2 Dominic Yan [facility] 01-27-2018 13:55-0400 Height 175.9 cm Dominic Yan [employer] 01-27-2018 13:55-0400 Pulse (Heart Rate) 60 /min Dominic Lorenzo [employer] 01-27-2018 13:55-0400 Weight 89.36 kg Dominic [facility] [employer] 01-27-2017 13:41-0400 BMI (Body Mass Index) 28.85 kg/m2 Dominic Plummer [employer] 01-27-2017 13:41-0400 Body weight 89.13 kg Dominic Yan [employer] [facility] [employer] 01-27-2017 13:41-0400 BP Diastolic 86 mm[Hg] Dominic [employer] 01-27-2017 13:41-0400 BP Diastolic 84 mm[Hg] Dominic [facility] [employer] 01-27-2017 13:41-0400 BP Systolic 134 mm[Hg] Dominic Yan Plummer Bondora (by [employer]Pank[employer]) 01-27-2017 13:41-0400 BP Systolic 132 mm[Hg] Dominic Yan [employer] 01-27-2017 13:41-0400 BSA (Body Surface Area) 2.09 m2 Dominic Yan [employer] 01-27-2017 13:41-0400 Height 175.77 cm Dominic Yan [employer] 01-27-2017 13:41-0400 Pulse (Heart Rate) 68 /min Dominic Plummer [facility] [employer] 01-27-2017 13:41-0400 Weight 89.13 kg Dominic Yan [employer] 01-29-2016 12:56-0400 BMI (Body Mass Index) 28.6 kg/m2 Dominic Yan [employer] 01-29-2016 12:56-0400 Body weight 89.13 kg Dominic Yan Plummer [employer] (by [employer]) 01-29-2016 12:56-0400 BP Diastolic 80 mm[Hg] Dominic Yan [employer] 01-29-2016 12:56-0400 BP Diastolic 82 mm[Hg] Dominic Plummer [place] [employer] 01-29-2016 12:56-0400 BP Systolic 148 mm[Hg] [facility] 01-29-2016 12:56-0400 BP Systolic 146 mm[Hg] Dominic Yan Plummer Bondora (by [employer]) 01-29-2016 12:56-0400 BSA (Body Surface Area) 2.09 m2 Dominic Yan [employer] 01-29-2016 12:56-0400 Height 176.53 cm Dominic Yan [employer] 01-29-2016 12:56-0400 Pulse (Heart Rate) 72 /min Dominic Plummer [facility] [employer] 01-29-2016 12:56-0400 Weight 89.13 kg Dominic Yan Plummer [employer] (by [employer]) 07-10-2015 13:16-0400 BMI (Body Mass Index) 27.95 kg/m2 Dominic Yan Plummer [employer] (by [employer]) 07-10-2015 13:16-0400 Body weight 87.09 kg Dominic Yan Plummer [employer] (by [employer]) 07-10-2015 13:16-0400 BP Diastolic 84 mm[Hg] Dominic Yan [facility] [employer] 07-10-2015 13:16-0400 BP Diastolic 80 mm[Hg] Dominic Yan Plummer Bondora (by [employer]) 07-10-2015 13:16-0400 BP Systolic 154 mm[Hg] Dominic Yan Plummer [employer] (by [employer]) 07-10-2015 13:16-0400 BP Systolic 144 mm[Hg] Dominic Yan PlummerEmpressr 07-10-2015 13:16-0400 BSA (Body Surface Area) 2.07 m2 Dominic Singleton[employer] 07-10-2015 13:16-0400 Height 176.53 cm Dominic Plummer [employer] (by [employer]) 07-10-2015 13:16-0400 Pulse (Heart Rate) 62 /min Dominic Lorenzo [employer] 07-10-2015 13:16-0400 Weight 87.09 kg Dominic Yan [place] 07-11-2014 17:42-0400 BMI (Body Mass Index) 27.95 kg/m2 Dominic TariqEmpressr 07-11-2014 17:42-0400 Body weight 87.09 kg Dominic Yan [place] 07-11-2014 17:42-0400 BP Diastolic 76 mm[Hg] Dominic Yan [employer] 07-11-2014 17:42-0400 BP Diastolic 84 mm[Hg] Dominic Singleton[employer]yme 07-11-2014 17:42-0400 BP Systolic 140 mm[Hg] Dominic Yan [place] 07-11-2014 17:42-0400 BP Systolic 130 mm[Hg] Dominic Yan [employer] 07-11-2014 17:42-0400 BSA (Body Surface Area) 2.07 m2 Dominic Yan [employer] 07-11-2014 17:42-0400 Height 176.53 cm Dominic Yan [employer] 07-11-2014 17:42-0400 Pulse (Heart Rate) 72 /min Dominic Lorenzo [employer] 07-11-2014 17:42-0400 Weight 87.09 kg Dominic Yan [place] 04-13-2013 15:51-0400 BMI (Body Mass Index) 28.24 kg/m2 Dominic Yan [place] 04-13-2013 15:51-0400 Body weight 88 kg Dominic Singleton[employer] 04-13-2013 15:51-0400 BP Diastolic 74 mm[Hg] Dominic Singleton[employer] 04-13-2013 15:51-0400 BP Systolic 148 mm[Hg] Dominic Yan [place] 04-13-2013 15:51-0400 BP Systolic 146 mm[Hg] Dominic Yan [place] 04-13-2013 15:51-0400 BSA (Body Surface Area) 2.08 m2 Dominic Yan [place] 04-13-2013 15:51-0400 Height 176.53 cm Dominic Yan [place] 04-13-2013 15:51-0400 Pulse (Heart Rate) 76 /min Dominic Lorenzo [facility] [employer] 04-13-2013 15:51-0400 Weight 88 kg Dominic Yan [place] Encounters Encounter Date Encounter Type Care Provider Facility Start: 05-17-2024 End: 05-17-2024 ambulatory Carlos Manuel Hartley MD Facility: [facility] Start: 05-06-2024 End: 05-06-2024 ambulatory [facility] Work Phone: Start: 05-06-2024 End: 05-06-2024 Patient encounter procedure [facility] Work Phone: Start: 03-05-2024 Non-patient / Non-visit [facility] Work Phone: Start: 02-18-2024 End: 02-18-2024 ambulatory [facility] Work Phone: Start: 02-18-2024 End: 02-18-2024 Patient encounter procedure [facility] Work Phone: Start: 01-15-2024 Non-patient / Non-visit [facility] Work Phone: Start: 01-14-2024 Non-patient / Non-visit [facility] Work Phone: Start: 01-13-2024 Non-patient / Non-visit [facility] Work Phone: Start: 01-05-2024 Non-patient / Non-visit [facility] Work Phone: Start: 12-19-2023 End: 12-19-2023 ambulatory Pramod Smith Other [email or web address] Other Start: 12-19-2023 Telephone encounter Pramod ALEXANDER [facility] Start: 12-11-2023 End: 12-11-2023 ambulatory MARCIA PLUNKETT [facility] Start: 12-11-2023 End: 12-11-2023 Office outpatient visit 25 minutes Marcia Plunkett PA Work Phone: [facility] Comment on above: Disc displacement, l umbar (Primary Dx); Lumbosacral spondylosis without myelopathy; Chronic bilateral low back pain, unspecified whether sciatica present Start: 12-04-2023 End: 12-05-2023 ambulatory PRAMOD SMITH [facility] Start: 11-05-2023 End: 11-05-2023 ambulatory Pramod Smith Other [email or web address] Other Start: 11-05-2023 Telephone encounter Pramod Ball [facility] Start: 10-13-2023 End: 10-13-2023 ambulatory Pramod Ball Other [email or web address] Other Start: 10-13-2023 Telephone encounter Pramod Ball [facility] Start: 07-23-2023 End: 07-23-2023 ambulatory Pramod Ball Other [email or web address] Other Start: 07-23-2023 Office outpatient vi sit 25 minutes Pramod Ball [facility] Start: 07-23-2023 Telephone encounter Pramod Ball [facility] Start: 07-17-2023 End: 07-17-2023 ambulatory Pramod Ball Other [email or web address] Other Start: 07-17-2023 Telephone encounter Pramod Ball [facility] Start: 06-18-2023 End: 06-18-2023 ambulatory Pramod Ball Other [email or web address] Other Start: 06-18-2023 Telephone encounter Pramod Ball [facility] Start: 06-17-2023 End: 06-17-2023 ambulatory Pramod Ball Other [email or web address] Other Start: 06-17-2023 Telephone encounter Pramod Ball [facility] Start: 06-12-2023 End: 06-12-2023 ambulatory Pramod Ball Other [email or web address] Other Start: 06-12-2023 Telephone encounter Pramod Ball [facility] Start: 05-08-2023 End: 05-08-2023 ambulatory Pramod Ball Other [email or web address] Other Start: 05-08-2023 Telephone encounter Pramod Ball [facility] Start: 04-25-2023 End: 04-25-2023 ambulatory Pramod Ball Other [email or web address] Other Start: 04-25-2023 Telephone encounter Pramod Ball [facility] Start: 04-21-2023 End: 04-21-2023 ambulatory Pramod Smith Other [email or web address] Other Start: 04-21-2023 Patient encounter procedure Pramod Smith [facility] Start: 03-28-2023 End: 03-28-2023 ambulatory Pramod Smith Other [email or web address] Other Start: 03-28-2023 Telephone encounter Pramod ALEXANDER [facility] Start: 03-15-2023 End: 03-15-2023 ambulatory Pramod Smith Other [email or web address] Other Start: 03-15-2023 Telephone encounter [facility] Start: 01-15-2023 End: 01-15-2023 ambulatory Pramod Smith Other [email or web address] Other Start: 01-15-2023 Office outpatient vi sit 25 minutes Pramod Smith [facility] Start: 01-13-2023 End: 01-14-[address] PRAMOD SMITH Facility:[facility] Start: 01-02-2023 End: 01-02-2023 ambulatory Pramod Smith Other [email or web address] Other Start: 01-02-2023 Telephone encounter Pramod Smith [facility] Start: 07-01-2022 End: 07-01-[address] PRAMOD SMITH Facility:[facility] Start: 04-03-2022 End: 04-04-[address] PRAMOD SMITH Facility:[facility] Start: 04-01-2022 Adult health examination Pramod Smith Other [email or web address] Other Start: 10-17-2021 Office outpatient vi sit 25 minutes Dominic Yan Other [facility] Office Start: 03-14-2020 Office outpatient vi sit 25 minutes Dominic Yan Other [facility] Office Start: 03-09-2019 Office outpatient vi sit 25 minutes Dominic Yan Other [facility] Office Start: 01-27-2018 Office outpatient vi sit 25 minutes Dominic Yan Other [facility] Office Start: 01-31-2017 End: 01-31-2017 Split Srvc Óscar Todd Other [facility] Office Start: 01-27-2017 Office outpatient vi sit 25 minutes Dominic Yan Other [facility] Office Start: 01-29-2016 Office outpatient vi sit 25 minutes Dominic Yan Other [facility] Office Start: 07-10-2015 Office outpatient vi sit 25 minutes Dominic Yan Other [facility] Office Start: 07-11-2014 Office Services Dominic Yan Other [facility] Office Start: 04-13-2013 Office Services Dominic Yan Other [facility] Office Procedures Date Procedure Procedure Detail Performing Clinician Start: 04-03-[address] JOAN SMITH Comment on above: Performed By: #### [facility] #### [facility] [address] [place] [address] Dr. Nahomy Gutiérrez Start: 10-17-2021 Docrev cur meds by nicolasa Yan Start: 03-13-2020 Doc meds verified w/pt or re Dominic Yan Start: 03-05-2019 Doc meds verified w/pt or re Dominic Yan Start: 01-27-2018 Duplex scan extracra nial art uni/lmtd study Dominic Yan Start: 10-21-2017 Screening for malign ant neoplasm of prostate Pramod Smith Other Start: 01-31-2017 Arteriography of hea d [...] perfusion study Dominic Yan Start: 01-31-2017 Tc99m sestamibi Dominic puga Start: 01-27-2017 Ecg routine ecg w/le [...] Td Vaccines (2 - Td or Tdap) [facility] Start: 12-11-2024 Adult BMI Screening [facility] Start: 12-11-2024 Tobacco Screening Tobacco Screening [facility] [employer] [facility] Start: 07-18-2023 Influenza vaccination Influenza Vacc ine [facility] Start: 01-15-2022 Lipid panel LIPID PROFILE Jean Bondora (by [employer]) Start: 2008 Fall Risk Screening Fall Risk Screen ing [facility] Start: 1993 Administration of varicella zoster vaccine Zoster (Shingles) Vaccine (1 of 2) [employer] Start: 1961 Adult BMI Follow Up Plan Adult BMI Follow Up Plan [employer] Start: 1955 Depression [facility]ening [facility] Start: 1945 Medicare Annual Well ness Visit Medicare Annual Wellness Visit [facility] Action Comprehensive metabo lic 1999 panel - Serum or Plasma [facility] End: 12-10-2024 MR Lumbar spine WO contrast MR lumbar spine without contrast Imaging Routine Chronic bilateral low back pain, unspecified whether sciatica present 1 Occurrences starting 12/11/2023 until 12/10/2024 [employer] Work Phone: Comment on above: 1 Occurrences starti ng 12/11/2023 until 12/10/2024 [facility] Immunizations Immunization Date Immunization Notes Care Provider Fa marquita 07-16-2020 tetanus toxoid, redu lucila diphtheria toxoid, and acellular pertussis vaccine, adsorbed Marcia MARIE Work Phone: [facility] 10-21-2017 diphtheria, tetanus toxoids and acellular pertussis vaccine, unspecified formulation Pramod Ball Other [facility] Payers Date Payer Category Payer Private Health Insurance [id number] 2007 Medicare [id number] 1959 Medicare [id number] 1959 Private Health Insurance CLI [id number] 1959 Unknown [id number] 1943 Unknown [id number] 1943 Unknown [id number] 1943 Unknown [id number] 1943 Unknown [id number] 6 1943 Unknown [id number] 6 1943 Unknown [id number] Medicare Medicare [id number] Medicare Medicare Outpatient [id number] Unknown [facility] Health Claims [id number] Social History Date Type Detail Facility Start: Former smoker [place] Start: [place] Start: 12-28-2020 End: 12-11-2023 Sex Assigned At [facility] [employer] Other Start: 11-17-1982 [facility] of tobacco use [facility] Start: 11-17-1982 History of tobacco use Cigarette Smo ker [facility] [employer] [facility] Start: 12-11-2023 Tobacco use and exposure Smokeless tobacco non-user [facility] [employer] [facility] Start: 12-11-2023 Alcohol intake Ex-drinker (finding) [facility] Start: 12-28-2020 End: 12-11-2023 History of Social function [facility] Childcare Unknown [facility] Start: 1945 Sex Assigned At Not on file [facility] Start: 01-05-2024 Tobacco smoking stat us NHIS Never smoked tobacco (finding) [facility] Start: 1945 Sex Assigned At Male F [facility] Clinical Notes 01-01-2022 to 12-19-2023 Note Date & Type Note Facility 12-19-2023 Evaluation note Encounter Date Diagnosis Assessment Notes Dec, Lung nodule (ICD-10 - R91.1) Dec, Pancreatic cyst (ICD-10 - K86.2) [place] [employer] Other 01-25-2024 History of Present illness Narrative* FRANK Solis - 12/11/2023 12:00 PM EST [facility] [address] [place] [address] Patient: Omar Ziegler Sex: male : 1945 [...] 01/01/2022 Performed by Ab Oliva MD at [facility] NECK SURGERY Cervical Spine-Implants THYROID SURGERY 2007 [...] Yao CNA 12/11/23 1334 FRANK Solis 12/16/23 0815 documented in this encounterProctor HospitalGoGuide [facility] [id number] Evaluation note* Encounter Date Diagnosis Assessment Notes Treatment Notes Treatment Clinical Notes Sep, ASHD (arteriosclerotic heart disease) (ICD-10 - I25.10) [email or web address] Other 09-06-2023 Evaluation note* Encounter Date Diagnosis [...] continued monitoring w/ referral for increased symptoms [email or web address] Other 08-31-2023 Evaluation note* Encounter Date Diagnosis Assessment Notes Treatment Notes Treatment Clinical Notes Jun, Pancreatic cyst (ICD-10 - K86.2) MRCP: - 15mm cyst 04/07, 10/08, - 17mm cyst 06/2023 [email or web address] Other 08-01-2023 Evaluation note* Encounter Date Diagnosis Assessment Notes Treatment Notes Treatment Clinical Notes Jun, Pancreatic cyst (ICD-10 - K86.2) MRCP: - 15mm cyst 04/07, 10/08, - 17mm cyst 06/2023 [email or web address] Other 06-22-2023 Evaluation note* Encounter Date Diagnosis Assessment Notes Treatment Notes Treatment Clinical Notes Apr, AGUSTINA (generalized anxiety disorder) (ICD-10 - F41.1) [email or web address] Other 06-05-2023 Evaluation note* Encounter Date Diagnosis [...] High risk medication use (ICD-10 - Z79.899) [email or web address] Other 05-12-2023 Evaluation note* Encounter Date Diagnosis Assessment Notes Treatment Notes Treatment Clinical Notes March, AGUSTINA (generalized anxiety disorder) (ICD-10 - F41.1) [email or web address] Other 04-29-2023 Evaluation note* Encounter Date Diagnosis Assessment Notes Treatment Notes Treatment Clinical Notes Feb, Pancreatic cyst (ICD-10 - K86.2) MRCP: 15mm cyst 04/07, 10/08 [email or web address] Other 03-01-2023 Evaluation note* Encounter Date Diagnosis [...] - F41.1) Healthy diet, exercise, keep active [email or web address] Other 02-16-2023 Evaluation note* Encounter Date Diagnosis Assessment Notes Treatment Notes Treatment Clinical Notes Dec, Lung nodule (ICD-10 - R91.1) [email or web address] Other 02-15-2022 Evaluation note* Encounter Date Diagnosis Assessment Notes Treatment Notes Treatment Clinical Notes Dec, Cyst of pancreas (ICD-10 - K86.2) Continue close imaging surveillance. Radiology describes as benign appearing lesion [email or web address] Other Evaluation noteNo InformationNort [employer] Other Evaluation note* Diagnosis Disc displacement, lumbar- Primary Displacement of lumbar intervertebral disc without myelopathy Lumbosacral spondylosis without myelopathy Chronic bilateral low back pain, unspecified whether sciatica present documented in this encounter [facility] Diagnosis Onset Date Resolution Status ASHD (arteriosclerotic heart disease) acute Elevated cholesterol acute AGUSTINA (generalized anxiety disorder) acute Hypertension acute Hypothyroid acute Lung nodule acute Pancreatic cyst acute [facility] Work Phone: Evaluation note* Diagnosis Onset Date [...] acute Medicare annual wellness visit, subsequent noneactive [facility] Work Phone: Hiscldr general Narrative - Reported* Type Description Date [...] History HTN 2006 Hospitalization History SEE ABOVE [email or web address] Other history general Narrative - Reported* Type Description Date [...] History HTN 2005 Hospitalization History SEE ABOVE [email or web address] Other InstructionsNot on filedocumented in this encounter [employer] Summary Purpose Family History No Family History Records Found Relationship Condition Age at Onset Recorded Date/T gillian father Unknown Coronary artery disease Unknown Not Specified Unknown Advance Directives No Advanced Directives Records FoundLatest Code Status on File Code Status Date Activated Date Inactivated Comments Full Code 12/31/2021 11:49 PM 01/01/2022 7:15 PM Advance Directive Response Recorded Date/ Time Advance Directives No December 08, 2023 6:36pm Reason for Referral Specialty Diagnoses / Procedures Referred By Seema leo Referred To Contact Rehabilitation Diagnoses Disc displacement, lumbar Lumbosacral spondylosis without myelopathy Marcia Plunkett PA [address], [address] [place] [id number] Referral ID Status Reason Start Date Expiration Date Visits Requested Visits Authorized [id number] Pending Review Specialty Services Required 12/11/2023 12/10/2024 1 1 Specialty Diagnoses / Procedures Referred By Seema leo Referred To Contact Radiology Diagnoses Chronic bilateral low back pain, unspecified whether sciatica present Procedures MR lumbar spine without contrast Marcia Plunkett PA [address], [address] [place] [id number] Referral ID Status Reason Start Date Expiration Date V isits Requested Visits Authorized [id number] Pending Review 12/11/2023 12/10/2024 1 1 Chief [...] content) No Status Records FoundNo Status Records FoundNo Status Records Found INFORMATION SOURCE (unrecogn ized section and content) DATE CREATED AUTHOR 01/18/2023 [facility] DATE CREATED AUTHOR AUTHOR'S ORGANIZ ATION 12/14/2023 [facility] DATE CREATED AUTHOR AUTHOR'S ORGANIZ ATION 05/22/2024 [facility] REASON FOR VISIT (unrecogniz ed section and [...] May 06, 2024 End: May 06, 2024 [employer]tp Tester Relationship Specialty Start Date End Date Pramod Smith DO [address] [place] [address] PCP - General Internal Medicine 07/16/20 Team [...] Attending Provider Active Start: January 15, 2024 Goals (unrecognized section and content) Goals [...] BE BASED ON THE PRIMARY CLINICAL RECORDS. [facility] 51fanli [facility]. provides no warranty or guarantee of the accuracy or completeness of information in this document.
[2024-05-24] MEDS: 0.9 % SODIUM CHLORIDE 10 ML SYRINGE - SALINE FLUSH INJ (11:31)
[2024-05-24] MEDS: BUPIVACAINE HCL 0.25% PF 25 MG/10 ML VIAL INJ (11:32)
[2024-05-24] MEDS: DEXAMETHASONE SOD PHOS 10 MG/ML VIAL INJ (11:32)
[2024-05-24] MEDS: LIDOCAINE HCL 2% 400 MG/20 ML MDV 5 ML INJ (11:33)
[2024-05-24] MEDS: IOHEXOL 240 MG/ML - 10 ML VIAL INJ (11:33)
[2024-05-24 11:34] VITALS: BP 198/80; BP 225/98; PULSE 75; PULSE 76; O2SAT 97; O2SAT 98
--- NOTE | 2024-05-24 11:34 | W.PM.PROCNOT ---
Date of procedure: 05/24/24 Pre-op diagnosis: Pain due to lumbar stenosis with neurogenic claudication Post-op diagnosis: same as pre-op Procedure: Procedure: Bilateral L2-3 transforaminal epidural steroid injection Medications: Bupivacaine 0.25% 2cc, lidocaine 2% 1cc, dexamethasone 10mg The patient was seen and examined in the preoperative holding area.? Informed consent was obtained and placed on the chart.? Patient was brought to the medical procedure unit and placed in the prone position where a timeout was completed verifying the correct patient, procedure site, position, and planned special equipment using sterile aseptic technique.? Under direct fluoroscopic visualization a 25-gauge Quincke tipped spinal needle was advanced at level left L2-3 to the designated neural foramen where contrast dye was injected to show adequate spread.? There was no evidence of vascular or adverse uptake.? Epidural spread was appreciated.? The above-mentioned injectate was then placed in a 1.5 mL aliquot preceded by negative aspiration.? The needle was removed. The same procedure, at the same level, was completed on the opposite side. ? Patient was taken to the postprocedural recovery area and monitored for an appropriate length of time before found suitable for discharge in the accompaniment of a responsible adult. Anesthesia: Local Surgeon: Carlos Manuel Hartley Pathology: none sent Condition: stable Disposition: no change
== END 2024-05-24 11:40 | disposition home or self-care (01) ==
PROVIDERS: PCP Internal Medicine; Visit Provider Anesthesiology
DX: M48.062 Spinal stenosis, lumbar region with neurogenic claudication (principal)
CPT/HCPCS: 64483; J0665; J1100; Q9966

== ENCOUNTER 2024-06-07 10:54 | Day surgery (SDC) | payer MEDICARE, SELFPAY ==
[2024-06-07 11:42] VITALS: BP 179/94; PULSE 74; TEMP 36.9; O2SAT 97
[2024-06-07 12:08] VITALS: BP 205/86; PULSE 73; O2SAT 97
[2024-06-07 12:09] VITALS: BP 200/86; PULSE 73; O2SAT 97
--- NOTE | 2024-06-07 12:13 | W.PM.PROCNOT ---
Date of procedure: 06/07/24 Pre-op diagnosis: Pain due to lumbar stenosis with neurogenic claudication Post-op diagnosis: same as pre-op Procedure: Procedure: Bilateral L4-5 transforaminal epidural steroid injection Medications: Bupivacaine 0.25% 2cc, lidocaine 2% 1cc, kenalog 80mg The patient was seen and examined in the preoperative holding area.? Informed consent was obtained and placed on the chart.? Patient was brought to the medical procedure unit and placed in the prone position where a timeout was completed verifying the correct patient, procedure site, position, and planned special equipment using sterile aseptic technique.? Under direct fluoroscopic visualization a 25-gauge Quincke tipped spinal needle was advanced at level left L4-5 to the designated neural foramen where contrast dye was injected to show adequate spread.? There was no evidence of vascular or adverse uptake.? Epidural spread was appreciated.? The above-mentioned injectate was then placed in a 1.5 mL aliquot preceded by negative aspiration.? The needle was removed. The same procedure, at the same level, was completed on the opposite side. ? Patient was taken to the postprocedural recovery area and monitored for an appropriate length of time before found suitable for discharge in the accompaniment of a responsible adult. Anesthesia: Local Surgeon: Carlos Manuel Hartley Pathology: none sent Condition: stable Disposition: no change
[2024-06-07] MEDS: 0.9 % SODIUM CHLORIDE 10 ML SYRINGE - SALINE FLUSH INJ (12:14)
[2024-06-07] MEDS: IOHEXOL 240 MG/ML - 10 ML VIAL 24 MG INJ (12:14)
[2024-06-07] MEDS: LIDOCAINE HCL 2% 400 MG/20 ML MDV 3 ML INJ (12:14)
[2024-06-07] MEDS: BUPIVACAINE HCL 0.25% PF 25 MG/10 ML VIAL INJ (12:14)
[2024-06-07] MEDS: TRIAMCINOLONE ACETONIDE 40 MG/ML VIAL 80 MG INJ (12:15)
== END 2024-06-07 12:18 | disposition home or self-care (01) ==
PROVIDERS: PCP Internal Medicine; Visit Provider Anesthesiology
DX: M48.062 Spinal stenosis, lumbar region with neurogenic claudication (principal); R52 Pain, unspecified
CPT/HCPCS: 64483; J0665; J3301; Q9966

== ENCOUNTER 2024-06-17 10:26 | Outpatient (OUT) | payer MEDICARE, SELFPAY ==
--- OUTSIDE RECORDS SUMMARY | 2024-06-17 10:33 | XMS_ITS | CCD ---
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 Operator Name Role Phone Dominic Yan Primary Care [...] Consulting Unavailable BALL, DR MARTÍNEZ Attending Unavailable Pramod Smith Unavailable PRAMOD SMITH Referring Unavailable PRAMOD SMITH Primary Care Unavailable MARCIA PLUNKETT Attending Unavailable PRAMOD SMITH Referring Unavailable LUIS, PRAMOD Mena Primary Care Unavailable Pramod Smith DO Primary Care Provider Naeem CABEZAS, Carlos Manuel Hagan Attending Unavailable Naeem CABEZAS, Carlos Manuel Hagan Attending Unavailable Naeem CABEZAS, Carlos Manuel Hagan Attending Unavailable Allergies Allergy Classification Reported Allergen(s) Allergy Type Date of Onset Reaction(s) Facility Cholesterol Absorption Inhibitors (1 source) ezetimibe Drug Allergy 4 Unknown Reaction [facility] Doxycycline (1 source) Doxycycline Drug Allergy 4 Unknown Reaction [facility] HMG-CoA Reductase Inhibitors (statins) (1 source) Simvastatin Drug Allergy 4 Unknown Reaction [facility] Opioid Agonists (1 source) Morphine Drug Allergy 4 mood disturbance [facility] venlafaxine (1 source) venlafaxine Drug Allergy 4 Unknown Reaction [facility] (5 sources) atorvastatin; Translations: [Lipitor] Drug Allergy [facility] [place] [facility] (5 sources) ezetimibe; Translations: [Zetia] Drug Allergy MYALGI[facility] [place] [facility] (5 sources) ezetimibe / Simvastatin; Translations: [Vytorin 10-10] Drug Allergy [facility]ALGI[facility] [place] [facility] (5 sources) Lovastatin; Translations: [lovastatin] Drug Allergy [facility]ALGIAS [place] [facility] (1 source) Pravastatin; Translations: [pravastatin] Drug Allergy MYALGI[facility] [place] [facility] (5 sources) rosuvastatin; Translations: [Crestor] Drug Allergy MYALGIAS [place] [facility] (4 sources) Pravastatin; Translations: [pravastatin] Drug Allergy [facility]ALGI[facility] [place] [facility] (18 sources) ezetimibe Drug Allergy 4 Unknown, Unknown Reaction [facility] (20 sources) Morphine; Translations: [MORPHINE] Drug Allergy 0 Confusion [facility] (11 sources) Doxycycline Drug Allergy 4 Unknown, Unknown Reaction [facility] (13 sources) Simvastatin; Translations: [SIMVASTATIN] Drug Allergy 4 Unknown, Unknown Reaction [facility] (11 sources) venlafaxine Drug Allergy 4 Unknown, Unknown Reaction [facility] (4 sources) patient allergy list reviewed by nurse or physicia Propensity to adverse reactions 9 Comment:Done [employer] Other Medications Current Medications Medication Drug Class(es) [...] Active Start: 01-29-2016 take 1 tablet by [facility] three times daily clonazepam 0.5 mg oral tablet 01/29/2016 take 1 tablet (0.5 mg) by oral route 3 times per day take 0.5 tablet by [facility] every twelve hours KlonoPIN 0.5 MG 0.5 tablet Orally Twice a day Not-Taking/PRN take 1 tablet by [facility] every twenty-four hours clonazePAM 0.5 MG 1 tablet at bedtime Orally Once a day Active colestipol hydrochloride 1000 mg oral tablet (20 sources) Bile Acid Sequestrant Start: 02-17-2024 take 2 g by mouth once daily Colestipol Active 2 GM PO Daily February 17, 2024 12:00am Start: 10-17-2021 take 1 tablet by [facility] twice daily colestipol 1 gram tablet 10/17/2021 [...] chew and/or divide. take 2 tablets by [facility] every twenty-four hours Colestipol HCl 1 GM 2 tablets Orally Once a day Active take 1 tablet by [facility] at bedtime colestipoL (COLESTID) 1 g tablet Take 1 tablet (1 g total) by mouth in the morning and 1 tablet (1 g total) before bedtime. 0 Active take 2 tablets by [facility] every twenty-four hours Colestipol HCl 1 [...] 7:23pm Start: 01-27-2017 take 1 tablet by [facility] once daily Synthroid 100 mcg oral tablet 01/27/2017 take 1 tablet (100 mcg) by oral route once daily take 1 capsule by [facility] once daily Levothyroxine Sodium 112 MCG TAKE ONE CAPSULE BY MOUTH DAILY Active take 1 capsule by [facility] once daily Levothyroxine Sodium 112 MCG [...] oral tablet (5 sources) Vitamin D Start: take 5 drop(s) by mouth once daily [...] 1 tablet by mouth once daily vitamin Y34-jeskd acid 500-400 mcg oral tablet take 1 tablet by oral route daily folic acid 0.4 mg / vitamin b12 0.5 mg oral tablet (2 sources) Vitamin B12 take 1 tablet by mouth once daily vitamin E42-dyptg acid 500-400 mcg oral tablet take 1 tablet by oral route daily [facility] [phone] mg oral capsule (5 sources) take 1 capsule by mouth twice daily [facility] [phone] mg oral capsule take 1 capsule by [...] heart disease (20 sources) Coronary atherosclerosis of [place] coronary artery; Translations: [Coronary arteriosclerosis] Onset: 4 [...] 5 Chronic Other aftercare (3 sources) Other jail (current) drug therapy; Translations: [OTH INTERMEDIATE CURRENT DRUG THERAPY] Onset: 2 Episodic Other aftercare (4 sources) Long-term current use of drug therapy; 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] Episodic Other circulatory disease [...] [email or web address]_name_27 Onset: 07-10-2015 Unclassified (1 source) [id number] [email or web address]_name_23 Onset: 07-10-2015 Unclassified (1 source) [id number] astIllness_name_24 Onset: 07-10-2015 Unclassified (1 source) [id number] [email or web address]_name_27 Onset: 07-10-2015 Unclassified (2 sources) Acute bilateral low back pain without sciatica M54.50 Results Test Name Value Interpretation Reference Range Facility Estimated glomerular filtrat ion rate (GFR) non- Americanon 01-15-2024 GFR/1.73 sq M.predicted among non-blacks MDRD (S/P/Bld) [Vol rate/Area] 55 mL/min/{1.73_m2} >=60 [facility] - Chemistry and C hemistry - challengeon 01-15-2024 Creatinine [Mass/Vol] 1.27 mg/dL 0.70-1.30 [facility] GFR/1.73 sq M.predicted MDRD (S/P/Bld) [Vol rate/Area] mL/min/{1.73_m2} >=60 [facility] XR SPINE LUMB COMP INCL BEND [...] Collado MD on 12/04/2023 12:36 PM Normal [facility] Complete Blood Count and Dif sonal 04-24-2023 Anisocytosis Ql (Bld) [facility] [employer] Other Basophilic stippling LM Ql (Bld) [facility] [employer] Other RBC morphology finding Nom (Bld) [facility] [employer] Other Complete Blood Count and Diff [facility] [employer] Other CT CHEST WO CONon 01-13-2023 CT [...] by: JESSICA MELENDEZ Date: 2023-01-13 11:47 Normal [facility] CT chest wo conon 01-13-2023 CT chest wo con [facility] [employer] Other CT CHEST WO CONon 07-01-2022 CT [...] JESSICA MELENDEZ Date: 2022-07-01 14:14 Normal [facility] CBC AUTO DIFFon 04-03-2022 BASO # 0.1 103/ul Normal 0.0-0.1 [facility] Comment on above: Performed By: #### C BC #### [facility] [address] [place] [address] Dr. Naohmy Gutiérrez Basophils/100 WBC (Bld) 0.8 % Normal 0.2-2.0 [facility] Comment on above: Performed By: #### C BC #### [facility] [address] [address] [address] Nahomy Gutiérrez EO # 0.3 103/ul Normal 0.0-0.7 [facility] Comment on above: Performed By: #### C BC #### [facility] [address] [address] [address] Nahomy Gutiérrez Eosinophils/100 WBC (Bld) 4.6 % Normal 0.9-7.0 [facility] Comment on above: Performed By: #### C BC #### [facility] [address] [place] [address] Dr. Nahomy Gutiérrez Erythrocyte distribution width (RBC) [Ratio] 12.4 % Normal 11.0-15.0 [facility] Comment on above: Performed By: #### C BC #### [facility] [address] [place] [address] Dr. Nahomy Gutiérrez Hematocrit (Bld) [Volume fraction] 47.5 % Normal 42.0-54.0 [facility] Comment on above: Performed By: #### C BC #### [facility] [address] [place] [address] Dr. Nahomy Gutiérrez Hemoglobin (Bld) [Mass/Vol] 15.9 g/dL Normal 14.0-18.0 [facility] Comment on above: Performed By: #### C BC #### [facility] [address] [place] [address] Dr. Nahomy Gutiérrez IG # 0.02 10e3/ul Normal 0.00-0.03 [facility] Comment on above: Performed By: #### C BC #### [facility] [address] [place] [address] Dr. Nahomy Gutiérrez IG % 0.3 % Normal 0.0-0.5 [facility] Comment on above: Performed By: #### C BC #### [facility] [address] [place] [address] Dr. Nahomy Gutiérrez LYMPH # 2.0 103/ul Normal 1.2-3.8 [facility] Comment on above: Performed By: #### C BC #### [facility] [address] [place] [address] Dr. Nahomy Gutiérrez Lymphocytes/100 WBC (Bld) 31.9 % Normal 20.5-60.0 [facility] Comment on above: Performed By: #### C BC #### [facility] [address] [place] [address] Dr. Nahomy Gutiérrez MANUAL DIFF REQ NO Normal [facility] Comment on above: Performed By: #### C BC #### [facility] [address] [address] [address] Nahomy Gutiérrez MCH (RBC) [Entitic mass] 30.5 pg Normal 25.9-34.0 [facility] Comment on above: Performed By: #### C BC #### [facility] [address] [address] [address] Nahomy Gutiérrez MCHC (RBC) [Mass/Vol] 33.5 g/dL Normal 29.9-35.2 [facility] Comment on above: Performed By: #### C BC #### [facility] [address] [address] [address] Nahomy Gutiérrez MCV (RBC) [Entitic vol] 91.0 fL Normal 80.0-94.0 [facility] Comment on above: Performed By: #### C BC #### [facility] [address] [place] [address] Dr. Nahomy Gutiérrez MONO # 0.9 103/ul Critically high 0.3-0.8 [facility] Comment on above: Performed By: #### C BC #### [facility] [address] [address] [address] Nahomy Gutiérrez Monocytes/100 WBC (Bld) 14.8 % Critically high 1.7-12.0 [facility] Comment on above: Performed By: #### C BC #### [facility] [address] [address] [address] Nahomy Gutiérrez NEUT # 2.9 103/ul Normal 1.4-6.5 [facility] Comment on above: Performed By: #### C BC #### [facility] [address] [place] [address] Dr. Nahomy Gutiérrez Neutrophils/100 WBC (Bld) 47.6 % Normal 43.0-75.0 [facility] Comment on above: Performed By: #### C BC #### [facility] [address] [place] [address] Dr. Nahomy Gutiérrez Platelet mean volume (Bld) [Entitic vol] 9.4 fL Critically low 9.5-13.5 [facility] Comment on above: Performed By: #### C BC #### [facility] [address] [address] [address] Nahomy Gutiérrez PLT 215 103/ul Normal 150-450 [facility] Comment on above: Performed By: #### C BC #### [facility] [address] [address] [address] Nahomy Gutiérrez RBC 5.22 106/ul Normal 4.70-6.10 [facility] Comment on above: Performed By: #### C BC #### [facility] [address] [address] [address] Nahomy Gutiérrez WBC 6.1 103/ul Normal 4.0-11.0 [facility] Comment on above: Performed By: #### C BC #### [facility] [address] [place] [address] Dr. Nahomy Gutiérrez LIPID PROFILEon 04-03-2022 CHOL-HDL RATIO NORM SEE BELOW Normal [facility] Comment on above: Result Comment: 3.3 - 4.4 LOW RISK 4.4 - 7.1 AVERAGE RISK 7.1 - 11.0 MODERATE RISK >11.0 HIGH RISK Performed By: #### T SH, LIPID, ALT, BMP #### [facility] [address] [place] [address] Dr. Nahomy Gutiérrez Cholesterol [Mass/Vol] 206 mg/dL Critically high <=200 [facility] Comment on above: Performed By: #### T SH, LIPID, ALT, BMP #### [facility] [address] [place] [address] Dr. Nahomy Gutiérrez Cholesterol in HDL [Mass/Vol] 31 mg/dL Critically low 40-60 [facility] Comment on above: Performed By: #### T SH, LIPID, ALT, BMP #### [facility] [address] [place] [address] Dr. Nahomy Gutiérrez Cholesterol in LDL [Mass/Vol] 121.4 mg/dL Normal [facility] Comment on above: Performed By: #### T SH, LIPID, ALT, BMP #### [facility] [address] [place] [address] Dr. Nahomy Gutiérrez Cholesterol.total /Cholesterol in HDL [Mass ratio] 6.6 {ratio} Normal [facility] Comment on above: Performed By: #### T SH, LIPID, ALT, BMP #### [facility] [address] [place] [address] Dr. Nahomy Gutiérrez HDL NORMAL > or = 60 mg/dl - LOW CARDIOVASCULAR RISK <40 mg/dl - HIGH CARDIOVASCULAR RISK Normal [facility] Comment on above: Performed By: #### T SH, LIPID, ALT, BMP #### [facility] [address] [place] [address] Dr. Nahomy Gutiérrez LDL CALC NORMAL SEE BELOW Normal [facility] Comment on above: Result Comment: <100 mg/dl OPTIMAL 100 - 129 mg/dl NEAR OR ABOVE OPTIMAL 130 - 159 mg/dl BORDERLINE HIGH 160 - 189 mg/dl HIGH >190 mg/dl VERY HIGH Performed By: #### T SH, LIPID, ALT, BMP #### [facility] [address] [place] [address] Dr. Nahomy Gutiérrez Triglyceride [Mass/Vol] 268 mg/dL Critically high <=150 [facility] Comment on above: Performed By: #### T SH, LIPID, ALT, BMP #### [facility] [address] [place] [address] Dr. Nahomy Gutiérrez VLDL CALC 53.6 mg/dL Normal [facility] Comment on above: Performed By: #### T SH, LIPID, ALT, BMP #### [facility] [address] [place] [address] Dr. Nahomy Gutiérrez PROF CHEM 8 (BAS METB)on Anion gap [Moles/Vol] 14.3 mmol/L Normal [facility] Comment on above: Performed By: #### T SH, LIPID, ALT, BMP #### [facility] [address] [place] [address] Dr. Nahomy Gutiérrez Calcium [Mass/Vol] 9.0 mg/dL Normal 8.5-10.1 [facility] Comment on above: Performed By: #### T SH, LIPID, ALT, BMP #### [facility] [address] [place], [place] [id number] Dr. Nahomy Gutiérrez Chloride [Moles/Vol] 104 mmol/L Normal 98-107 [facility] Comment on above: Performed By: #### T SH, LIPID, ALT, BMP #### [facility] [address] [place] [address] Dr. Nahomy Gutiérrez CO2 [Moles/Vol] 23.1 mmol/L Normal 21.0-32.0 [facility] Comment on above: Performed By: #### T SH, LIPID, ALT, BMP #### [facility] [address] [place] [address] Dr. Nahomy Gutiérrez Creatinine [Mass/Vol] 1.15 mg/dL Normal 0.70-1.30 [facility] Comment on above: Performed By: #### T SH, LIPID, ALT, BMP #### [facility] [address] [place] [address] Dr. Nahomy Gutiérrez EGFR-AF INDIAN >60 Normal >=60 [facility] Comment on above: Performed By: #### T SH, LIPID, ALT, BMP #### [facility] [address] [place] [address] Dr. Nahomy Gutiérrez EGFR-NON AF INDIAN >60 Normal >=60 [facility] Comment on above: Performed By: #### T SH, LIPID, ALT, BMP #### [facility] [address] [place] [address] Dr. Nahomy Gutiérrez Glucose [Mass/Vol] 106 mg/dL Normal 74-106 [facility] Comment on above: Performed By: #### T SH, LIPID, ALT, BMP #### [facility] [address] [place] [address] Dr. Nahomy Gutiérrez Potassium [Moles/Vol] 4.4 mmol/L Normal 3.5-5.1 [facility] Comment on above: Performed By: #### T SH, LIPID, ALT, BMP #### [facility] [address] [place] [address] Dr. Nahomy Gutiérrez Sodium [Moles/Vol] 137 mmol/L Normal 136-145 [facility] Comment on above: Performed By: #### T SH, LIPID, ALT, BMP #### [facility] [address] [address] [address] Nahomy Gutiérrez Urea nitrogen [Mass/Vol] 19.0 mg/dL Critically high 7.0-18.0 [facility] Comment on above: Performed By: #### T SH, LIPID, ALT, BMP #### [facility] [address] [place] [address] Dr. Nahomy Gutiérrez Urea nitrogen/Creatini ne [Mass ratio] 16.5 mg/mg Normal [facility] Comment on above: Performed By: #### T SH, LIPID, ALT, BMP #### [facility] [address] [place] [address] Dr. Nahomy Gutiérrez SGPTon 04-03-2022 ALT [Catalytic activity/Vol] 29 U/L Normal 16-63 [facility] Comment on above: Performed By: #### T SH, LIPID, ALT, BMP #### [facility] [address] [place] [address] Dr. Nahmoy Gutiérrez TSHon 04-03-2022 TSH 1.647 uIU/mL Normal 0.358-3.[address] [facility] Comment on above: Performed By: #### T SH, LIPID, ALT, BMP #### [facility] [address] [place] [address] Dr. Nahomy Gutiérrez TSH RANGE SEE BELOW Normal [facility] Comment on above: Result Comment: <0.3 4 UIU/ml HYPERTHYROID 0.34-5.60 UIU/ml EUTHYROID >5.60 UIU/ml HYPOTHYROID Performed By: #### T SH, LIPID, ALT, BMP #### [facility] [address] [place] [address] Dr. Nahomy Gutiérrez Otheron 01-31-2017 Patient Name: Omar Ziegler Invalid Interpretation Code [facility] PAIEON [facility] Vital Signs Date Time Vital Sign Value Performing Clinician Facility 05-06-2024 09:16-0400 Body height 175.26 cm [facility] 05-06-2024 09:16-0400 Body mass index (BMI) [Ratio] 28.8 kg/m2 [facility] 05-06-2024 09:16-0400 Body weight 88.67 kg [facility] 05-06-2024 09:16-0400 Diastolic blood pressure 80 mm[Hg] [facility] 05-06-2024 09:16-0400 Heart rate 76 /min [facility] 05-06-2024 09:16-0400 Respiratory rate 12 /min [facility] 05-06-2024 09:16-0400 Systolic blood pressure 130 mm[Hg] [facility] 02-18-2024 09:50-0400 Body height 175.26 cm [facility] 02-18-2024 09:50-0400 Body mass index (BMI) [Ratio] 29.5 kg/m2 [facility] 02-18-2024 09:50-0400 Body weight 90.83 kg [facility] 02-18-2024 09:50-0400 Diastolic blood pressure 96 mm[Hg] [facility] 02-18-2024 09:50-0400 Heart rate 73 /min [facility] 02-18-2024 09:50-0400 Respiratory rate 12 /min [facility] 02-18-2024 09:50-0400 Systolic blood pressure 172 mm[Hg] [facility] 12-11-2023 11:38-0500 Body height 175.3 cm Marcia MARIE Work Phone: [facility] 12-11-2023 11:38-0500 Body mass index (BMI) [Ratio] 29.39 kg/m2 Marcia MARIE Work Phone: [facility] 12-11-2023 11:38-0500 Body weight 90.27 kg Marcia MARIE Work Phone: [facility] 12-11-2023 11:38-0500 Diastolic blood pressure 115 mm[Hg] Marcia MARIE Work Phone: [facility] 12-11-2023 11:38-0500 Heart rate 68 /min Marcia MARIE Work Phone: [employer] 12-11-2023 11:38-0500 SaO2% (BldA) [Mass fraction] 99 % Marcia MARIE Work Phone: [employer] 12-11-2023 11:38-0500 Systolic blood pressure 156 mm[Hg] Marcia MARIE Work Phone: [employer] 07-23-2023 10:00-0400 Body height 175.26 cm Pramod Ball Other [employer] Other 07-23-2023 10:00-0400 Body mass index (BMI) [Ratio] 29 kg/m2 Pramod Ball Other [employer] Other 07-23-2023 10:00-0400 Body weight 89.09 kg Pramod Ball Other [employer] Other 07-23-2023 10:00-0400 Diastolic blood pressure 81 mm[Hg] Pramod Ball Other [employer] Other 07-23-2023 10:00-0400 Respiratory rate 12 /min Pramod Ball Other [employer] Other 07-23-2023 10:00-0400 Systolic blood pressure 133 mm[Hg] Pramod Ball Other [employer] Other 04-21-2023 10:00-0400 Body height 175.26 cm Pramod Ball Other [employer] Other 04-21-2023 10:00-0400 Body mass index (BMI) [Ratio] 29.15 kg/m2 Pramod Ball Other [employer] Other 04-21-2023 10:00-0400 Body weight 89.54 kg Pramod Ball Other [employer] Other 04-21-2023 10:00-0400 Diastolic blood pressure 82 mm[Hg] Pramod Ball Other [employer] Other 04-21-2023 10:00-0400 Respiratory rate 12 /min Pramod Ball Other [employer] Other 04-21-2023 10:00-0400 Systolic blood pressure 130 mm[Hg] Pramod Ball Other [employer] Other 01-15-2023 10:00-0500 Body height 175.26 cm Pramod Ball Other [employer] Other 01-15-2023 10:00-0500 Body mass index (BMI) [Ratio] 29.86 kg/m2 Pramod Ball Other [employer] Other 01-15-2023 10:00-0500 Body weight 91.72 kg Pramod Ball Other [employer] Other 01-15-2023 10:00-0500 Diastolic blood pressure 82 mm[Hg] Pramod Ball Other [employer] Other 01-15-2023 10:00-0500 Respiratory rate 12 /min Pramod Ball Other [employer] Other 01-15-2023 10:00-0500 Systolic blood pressure 118 mm[Hg] Pramod Ball Other [employer] Other 10-17-2021 11:57-0500 Body height 173.99 cm Dominic Yan [facility] 10-17-2021 11:57-0500 Body mass index (BMI) [Ratio] 29.67 kg/m2 Dominic Yan [facility] 10-17-2021 11:57-0500 Body surface area Derived from formula 2.08 m2 Dominic Yan [employer] 10-17-2021 11:57-0500 Body weight 89.81 kg Dominic Yan [employer] 10-17-2021 11:57-0500 Diastolic blood pressure 70 mm[Hg] Dominic Yan [employer] 10-17-2021 11:57-0500 Diastolic blood pressure 80 mm[Hg] Dominic Yan [employer] 10-17-2021 11:57-0500 Heart rate 76 /min Dominic Yan [employer] 10-17-2021 11:57-0500 Systolic blood pressure 120 mm[Hg] Dominic Yan [employer] 10-17-2021 11:57-0500 Systolic blood pressure 134 mm[Hg] Dominic Yan [employer] 03-09-2019 17:19-0400 BP Diastolic 72 mm[Hg] Dominic Yan [employer] 03-09-2019 17:19-0400 BP Systolic 130 mm[Hg] Dominic Yan [employer] 03-09-2019 16:58-0400 BMI (Body Mass Index) 29.07 kg/m2 Dominic Yan [employer] 03-09-2019 16:58-0400 Body weight 89.81 kg Dominic Yan [employer] 03-09-2019 16:58-0400 BP Diastolic 78 mm[Hg] Dominic Yan [employer] 03-09-2019 16:58-0400 BP Diastolic 76 mm[Hg] Dominic Bablic 03-09-2019 16:58-0400 BP Systolic 140 mm[Hg] Dominic [employer] 03-09-2019 16:58-0400 BP Systolic 136 mm[Hg] Dominic [facility] [employer] 03-09-2019 16:58-0400 BSA (Body Surface Area) 2.09 m2 Dominic Plummer [employer] 03-09-2019 16:58-0400 Height 175.77 cm Dominic Yan [employer] 03-09-2019 16:58-0400 Pulse (Heart Rate) 72 /min Dominic Plummer [facility] [employer] 03-09-2019 16:58-0400 [facility] 89.81 [facility] [employer] 01-27-2018 13:55-0400 BMI (Body Mass Index) 28.88 kg/m2 Dominic Yan [employer] 01-27-2018 13:55-0400 Body weight 89.36 kg Dominic Yan [employer] 01-27-2018 13:55-0400 BP Diastolic 82 mm[Hg] [facility] [employer] 01-27-2018 13:55-0400 BP Systolic 136 mm[Hg] Dominic [facility] [employer] 01-27-2018 13:55-0400 BP Systolic 130 mm[Hg] Dominic Yan [employer] 01-27-2018 13:55-0400 BSA (Body Surface Area) 2.09 m2 Dominic Yan [employer] 01-27-2018 13:55-0400 Height 175.9 cm [facility] [employer] 01-27-2018 13:55-0400 Pulse (Heart Rate) 60 /min Dominic Lorenzo [employer] 01-27-2018 13:55-0400 Weight 89.36 kg Dominic [facility]letonUrjanet 01-27-2017 13:41-0400 BMI (Body Mass Index) 28.85 kg/m2 Dominic Singleton[facility]janet 01-27-2017 13:41-0400 Body weight 89.13 kg Dominic Yan PlummerUrjanet 01-27-2017 13:41-0400 BP Diastolic 86 mm[Hg] Dominic SingletonUrjanet 01-27-2017 13:41-0400 BP Diastolic 84 mm[Hg] Dominic TariqCorthera 01-27-2017 13:41-0400 BP Systolic 134 mm[Hg] Dominic Yan [employer] 01-27-2017 13:41-0400 BP Systolic 132 mm[Hg] Dominic Yan [facility] 01-27-2017 13:41-0400 BSA (Body Surface Area) 2.09 m2 Dominic Yan [facility] 01-27-2017 13:41-0400 Height 175.77 cm Dominic Yan [facility] 01-27-2017 13:41-0400 Pulse (Heart Rate) 68 /min Dominic Lorenzo [employer] 01-27-2017 13:41-0400 Weight 89.13 kg Dominic Yan [facility] 01-29-2016 12:56-0400 BMI (Body Mass Index) 28.6 kg/m2 Dominic Yan [facility] 01-29-2016 12:56-0400 Body weight 89.13 kg Dominic Yan [facility] 01-29-2016 12:56-0400 BP Diastolic 80 mm[Hg] [facility] 01-29-2016 12:56-0400 BP Diastolic 82 mm[Hg] [facility] [place] 01-29-2016 12:56-0400 BP Systolic 148 mm[Hg] Dominic Yan [facility] [employer] 01-29-2016 12:56-0400 BP Systolic 146 mm[Hg] Dominic Yan [employer] 01-29-2016 12:56-0400 BSA (Body Surface Area) 2.09 m2 [facility] 01-29-2016 12:56-0400 Height 176.53 cm [facility] 01-29-2016 12:56-0400 Pulse (Heart Rate) 72 /min Dominic Plummer [facility] [employer] 01-29-2016 12:56-0400 Weight 89.13 kg [facility] [place] 07-10-2015 13:16-0400 BMI (Body Mass Index) 27.95 kg/m2 Dominic Yan [facility] [employer] 07-10-2015 13:16-0400 Body weight 87.09 kg Dominic Yan [employer] 07-10-2015 13:16-0400 BP Diastolic 84 mm[Hg] Dominic Yan [employer] 07-10-2015 13:16-0400 BP Diastolic 80 mm[Hg] Dominic Yan [facility] [employer] 07-10-2015 13:16-0400 BP Systolic 154 mm[Hg] oDminic Yan [facility] 07-10-2015 13:16-0400 BP Systolic 144 mm[Hg] Dominic Yan [facility] [employer] [facility] 07-10-2015 13:16-0400 BSA (Body Surface Area) 2.07 m2 [facility] [employer] [facility] 07-10-2015 13:16-0400 Height 176.53 cm Dominic Yan [facility] [employer] [facility] 07-10-2015 13:16-0400 Pulse (Heart Rate) 62 /min Dominic Lorenzo [facility] [employer] [facility] 07-10-2015 13:16-0400 Weight 87.09 kg Dominic Yan [facility] [employer] [facility] 07-11-2014 17:42-0400 BMI (Body Mass Index) 27.95 kg/m2 Dominic Yan [facility] [employer] [facility] 07-11-2014 17:42-0400 Body weight 87.09 kg Dominic Yan [facility] [employer] [facility] 07-11-2014 17:42-0400 BP Diastolic 76 mm[Hg] Dominic Yan [facility] [employer] [facility] 07-11-2014 17:42-0400 BP Diastolic 84 mm[Hg] Dominic Yan [facility] [employer] [facility] 07-11-2014 17:42-0400 BP Systolic 140 mm[Hg] Dominic Yan [facility] [employer] [facility] 07-11-2014 17:42-0400 BP Systolic 130 mm[Hg] Dominic Yan [facility] [employer] [facility] 07-11-2014 17:42-0400 BSA (Body Surface Area) 2.07 m2 Dominic Yan [facility] [employer] [facility] 07-11-2014 17:42-0400 Height 176.53 cm Dominic Yan [facility] [employer] [facility] 07-11-2014 17:42-0400 Pulse (Heart Rate) 72 /min Doimnic Lorenzo [employer] 07-11-2014 17:42-0400 Weight 87.09 kg Dominic SingletonUrjanet 04-13-2013 15:51-0400 BMI (Body Mass Index) 28.24 kg/m2 Dominic Yan [facility] 04-13-2013 15:51-0400 Body weight 88 kg Dominic Yan [facility]ummer[facility]jan[facility] 04-13-2013 15:51-0400 BP Diastolic 74 mm[Hg] Dominic TariqCorthera 04-13-2013 15:51-0400 BP Systolic 148 mm[Hg] Dominic Yan [facility] 04-13-2013 15:51-0400 BP Systolic 146 mm[Hg] Dominic Yan [facility] 04-13-2013 15:51-0400 BSA (Body Surface Area) 2.08 m2 Dominic Yan [facility] 04-13-2013 15:51-0400 Height 176.53 cm Dominic Yan [facility] 04-13-2013 15:51-0400 Pulse (Heart Rate) 76 /min Dominic Lorenzo [employer] 04-13-2013 15:51-0400 Weight 88 kg Dominic Yan [facility] Encounters Encounter Date Encounter Type Care Provider Facility Start: 06-07-2024 End: 06-07-2024 ambulatory Carlos Manuel Hartley MD Facility: [facility] Start: 05-24-2024 End: 05-24-2024 ambulatory Carlos Manuel Hartley MD Facility: [facility] Start: 05-17-2024 End: 05-17-2024 ambulatory Carlos Manuel Hartley MD Facility: [facility] Start: 05-06-2024 End: 05-06-2024 ambulatory [facility] Work Phone: Start: 05-06-2024 End: 05-06-2024 Patient encounter procedure [facility] Work Phone: Start: 03-05-2024 Non-patient / Non-visit [facility] Work Phone: Start: 02-18-2024 End: 02-18-2024 ambulatory [facility] Work Phone: Start: 02-18-2024 End: 02-18-2024 Patient encounter procedure [facility] Work Phone: Start: 01-15-2024 Non-patient / Non-visit [facility] Work Phone: Start: 01-14-2024 Non-patient / Non-visit [facility] Phys[facility] Work Phone: Start: 01-13-2024 Non-patient / Non-visit [facility] Work Phone: Start: 01-05-2024 Non-patient / Non-visit [facility] Work Phone: Start: 12-19-2023 End: 12-19-2023 ambulatory Pramod Luis Other [facility] [employer] Other Start: 12-19-2023 Telephone encounter Pramod Smith [facility] Start: 12-11-2023 End: 12-11-2023 ambulatory MARCIA PLUNKETT [facility] Start: 12-11-2023 End: 12-11-2023 Office outpatient visit 25 minutes Macria Plunkett PA Work Phone: [facility] Comment on above: Disc displacement, l umbar (Primary Dx); Lumbosacral spondylosis without myelopathy; Chronic bilateral low back pain, unspecified whether sciatica present Start: 12-04-2023 End: 12-05-2023 ambulatory PRAMOD SMITH [facility] Start: 11-05-2023 End: 11-05-2023 ambulatory Pramod mSith Other [employer] Other Start: 11-05-2023 Telephone encounter Pramod ALEXANDER [facility] Start: 10-13-2023 End: 10-13-2023 ambulatory Pramod Smith Other [employer] Other Start: 10-13-2023 Telephone encounter Pramod ALEXANDER [facility] Start: 07-23-2023 End: 07-23-2023 ambulatory Pramod Smith Other [employer] Other Start: 07-23-2023 Office outpatient vi sit 25 minutes Pramod Luis [facility] Start: 07-23-2023 Telephone encounter Pramod ALEXANDER [facility] Start: 07-17-2023 End: 07-17-2023 ambulatory Pramod Smith Other [employer] Other Start: 07-17-2023 Telephone encounter Pramod ALEXANDER G [facility] Start: 06-18-2023 End: 06-18-2023 ambulatory Pramod Smith Other [employer] Other Start: 06-18-2023 Telephone encounter Pramod Smith FP [facility] Start: 06-17-2023 End: 06-17-2023 ambulatory Pramod Smith Other [employer] Other Start: 06-17-2023 Telephone encounter Pramod ALEXANDER G [facility] Start: 06-12-2023 End: 06-12-2023 ambulatory Pramod Smith Other [employer] Other Start: 06-12-2023 Telephone encounter Pramod Smith FP [facility] Start: 05-08-2023 End: 05-08-2023 ambulatory Pramod Smith Other [employer] Other Start: 05-08-2023 Telephone encounter Pramod Smith FP [facility] Start: 04-25-2023 End: 04-25-2023 ambulatory Pramod Luis Other [employer] Other Start: 04-25-2023 Telephone encounter Pramod Luis FP [facility] Start: 04-21-2023 End: 04-21-2023 ambulatory Pramod Smith Other [employer] Other Start: 04-21-2023 Patient encounter procedure Pramod [facility] Start: 03-28-2023 End: 03-28-2023 ambulatory Pramod Luis Other [employer] Other Start: 03-28-2023 Telephone encounter Pramod Smith CATHERINE [facility] Start: 03-15-2023 End: 03-15-2023 ambulatory Pramod Smith Other [employer] Other Start: 03-15-2023 Telephone encounter Pramod Smith [facility] Start: 01-15-2023 End: 01-15-2023 ambulatory Pramod Smith Other [employer] Other Start: 01-15-2023 Office outpatient vi sit 25 minutes Pramod Smith [facility] Start: 01-13-2023 End: 01-14-[address] PRAMOD SMITH Facility:[facility] Start: 01-02-2023 End: 01-02-2023 ambulatory Pramod Smith Other [employer] Other Start: 01-02-2023 Telephone encounter Pramod Smith CATHERINE [facility] Start: 07-01-2022 End: 07-01-[address] PRAMOD SMITH Facility:[facility] Start: 04-03-2022 End: 04-04-[address] PRAMOD SMITH Facility:[facility] Start: 04-01-2022 Adult health examination Pramod Smith Other [employer] Other Start: 10-17-2021 Office outpatient vi sit 25 minutes Dominic Yan Other [facility] Start: 03-14-2020 Office outpatient vi sit 25 minutes Dominic Yan Other [facility] Start: 03-09-2019 Office outpatient vi sit 25 minutes Dominic Yan Other [facility] Start: 01-27-2018 Office outpatient vi sit 25 minutes Dominic Yan Other [facility] Start: 01-31-2017 End: 01-31-2017 Split Srvc Óscar Todd Other [facility] Start: 01-27-2017 Office outpatient vi sit 25 minutes Dominic Yan Other [facility] Start: 01-29-2016 Office outpatient vi sit 25 minutes Dominic Yan Other [facility] Start: 07-10-2015 Office outpatient vi sit 25 minutes Dominic Yan Other [facility] Start: 07-11-2014 Office Services Dominic Yan Other [facility] Start: 04-13-2013 Office Services Dominic Yan Other [facility] Office Procedures Date Procedure Procedure Detail Performing Clinician Start: 04-03-[address] JOAN SMITH Comment on above: Performed By: #### P [facility] #### [facility] [address] [place] [address] Dr. Nahomy Gutiérrez Start: 10-17-2021 Docrev cur [...] Dominic Yan Start: 01-31-2017 Tc99m sestamibi Dominic pgua Start: 01-27-2017 Ecg routine ecg w/le ast [...] Td Vaccines (2 - Td or Tdap) [facility] Start: 12-11-2024 Adult BMI Screening Adult BMI Screen ing [facility] Start: 12-11-2024 [facility]ening [facility] Start: 07-18-2023 Influenza vaccination Influenza Vacc ine [facility] Start: 01-15-2022 Lipid panel LIPID PROFILE [facility] Start: 2008 Fall Risk Screening Fall Risk Screen ing [facility] Start: 1993 Administration of varicella zoster vaccine Zoster (Shingles) Vaccine (1 of 2) [facility] Start: 1961 Adult BMI Follow Up Plan Adult BMI Follow Up Plan [facility] Start: 1955 Depression Screening Depression Scre ening [facility] Start: 1945 Medicare Annual Well ness Visit Medicare Annual Wellness Visit [facility] [employer] Comprehensive metabo lic 2000 panel - Serum or Plasma [facility] End: 12-10-2024 MR Lumbar spine WO contrast MR lumbar spine without contrast Imaging Routine Chronic bilateral low back pain, unspecified whether sciatica present 1 Occurrences starting 12/11/2023 until 12/10/2024 [employer] Work Phone: Comment on above: 1 Occurrences starti ng 12/11/2023 until 12/10/2024 [facility] Immunizations Immunization Date Immunization Notes Care Provider Lacey juárez 07-16-2020 tetanus toxoid, redu lucila diphtheria toxoid, and acellular pertussis vaccine, adsorbed Marcia MARIE Work Phone: [facility] 10-21-2017 diphtheria, tetanus toxoids and acellular pertussis vaccine, unspecified formulation Pramod Smith Other [facility] Payers Date Payer Category Payer Private Health Insurance [id number] 2007 Medicare [id number] 1959 Medicare [id number] 1959 Private Health Insurance CLI [id number] 1959 Unknown [id number] 1943 Unknown [id number] 1943 Unknown [id number] 1943 Unknown [id number] 1943 Unknown [id number] 6 1943 Unknown [id number] 6 1943 Unknown [id number] 1943 Unknown [id number] 1943 Unknown [id number] Medicare Medicare [id number] Medicare Medicare Outpatient [id number] [id number] Unknown [facility] Health Claims [id number] Social History Date Type Detail Facility Start: Former smoker [facility] Start: Plummer[facility]orthe[facility] Start: 12-28-2020 End: 12-11-[address] [facility] [employer] Other Start: 11-17-1982 History of tobacco use Current smoke [facility] [employer] [facility] Start: 11-17-1982 History of tobacco use Cigarette Smo ker [facility] Start: 12-11-2023 Tobacco use and exposure Smokeless tobacco non-user [facility] Start: 12-11-2023 Alcohol intake Ex-drinker (finding) [facility] Start: 12-28-2020 End: 12-11-2023 History of Social function [facility] Childcare Unknown [facility] Start: 1945 Sex Assigned At Not on file P [facility] Start: 01-05-2024 Tobacco smoking stat [facility] Never smoked tobacco (finding) [facility] Start: 1945 Sex Assigned At Male F [facility] Clinical Notes 01-01-2022 to 12-19-2023 Note Date & Type Note Facility 12-19-2023 Evaluation note Encounter Date Diagnosis Assessment Notes Dec, Lung nodule (ICD-10 - R91.1) Dec, Pancreatic cyst (ICD-10 - K86.2) [employer] Other 01-25-2024 History of Present illness Narrative* Marcia Plunkett, FRANK - 12/11/2023 12:00 PM EST [facility] [address] [place] [address] Patient: Omar Ziegler Sex: male : 1945 [...] 2000, Lumbar-Implants CARDIAC CATHETERIZATION 2000 CARDIAC SURGERY 2008 COLONOSCOPY N/A 01/01/2022 Performed by Ab Oliva MD at [facility] NECK SURGERY Cervical Spine-Implants THYROID SURGERY 2008 TONSILLECTOMY AND ADENOIDECTOMY Allergies Allergen Reactions Morphine [...] FRANK Solis 12/16/23 0815 [facility] note* Encounter Date Diagnosis Assessment Notes Treatment Notes Treatment Clinical Notes Sep, ASHD (arteriosclerotic heart disease) (ICD-10 - I25.10) [employer] Other 09-06-2023 Evaluation note* Encounter Date Diagnosis [...] as needed. Offered PT, holding for now 06 Sep, 2023 Lung nodule (ICD-10 - R91.1) CT chest: [...] continued monitoring w/ referral for increased symptoms [employer] Other 08-31-2023 Evaluation note* Encounter Date Diagnosis Assessment Notes Treatment Notes Treatment Clinical Notes Jun, Pancreatic cyst (ICD-10 - K86.2) MRCP: - 15mm cyst 04/07, 10/08, - 17mm cyst 06/2023 [employer] Other 08-01-2023 Evaluation note* Encounter Date Diagnosis Assessment Notes Treatment Notes Treatment Clinical Notes Jun, Pancreatic cyst (ICD-10 - K86.2) MRCP: - 15mm cyst 04/07, 10/08, - 17mm cyst 06/2023 [employer] Other 06-22-2023 Evaluation note* Encounter Date Diagnosis Assessment Notes Treatment Notes Treatment Clinical Notes Apr, AGUSTINA (generalized anxiety disorder) (ICD-10 - F41.1) [employer] Other 06-05-2023 Evaluation note* Encounter Date Diagnosis [...] High risk medication use (ICD-10 - Z79.899) [employer] Other 05-12-2023 Evaluation note* Encounter Date Diagnosis Assessment Notes Treatment Notes Treatment Clinical Notes March, AGUSTINA (generalized anxiety disorder) (ICD-10 - F41.1) [employer] Other 04-29-2023 Evaluation note* Encounter Date Diagnosis Assessment Notes Treatment Notes Treatment Clinical Notes Feb, Pancreatic cyst (ICD-10 - K86.2) MRCP: 15mm cyst 04/07, 10/08 [employer] Other 03-01-2023 Evaluation note* Encounter Date Diagnosis [...] - F41.1) Healthy diet, exercise, keep active [employer] Other 02-16-2023 Evaluation note* Encounter Date Diagnosis Assessment Notes Treatment Notes Treatment Clinical Notes Dec, Lung nodule (ICD-10 - R91.1) [employer] Other 02-15-2022 Evaluation note* Encounter Date Diagnosis Assessment Notes Treatment Notes Treatment Clinical Notes Dec, Cyst of pancreas (ICD-10 - K86.2) Continue close imaging surveillance. Radiology describes as benign appearing lesion [employer] Other Evaluation noteNo InformationNort [employer] Other Evaluation note* Diagnosis Disc displacement, lumbar- Primary Displacement of lumbar intervertebral disc without myelopathy Lumbosacral spondylosis without myelopathy Chronic bilateral low back pain, unspecified whether sciatica present documented in this encounter [facility] Diagnosis Onset Date Resolution Status ASHD (arteriosclerotic heart disease) acute Elevated cholesterol acute AGUSTINA (generalized anxiety disorder) acute Hypertension acute Hypothyroid acute Lung nodule acute Pancreatic cyst acute [facility] Work Phone: Evaluation note* Diagnosis Onset [...] acute Medicare annual wellness visit, subsequent noneactive [facility] Work Phone: History general Narrative - Reported* [...] surgery Surgical History T&A Hospitalization History HTN 2005 Hospitalization History SEE ABOVE [employer] Other History general Narrative - Reported* Type Description [...] History HTN 2005 Hospitalization History SEE ABOVE [employer] Other InstructionsNot on filedocumented in this encounter [facility] Summary Purpose Family History No Family History [...] Marcia Plunkett PA [address] [place] [address] Referral ID Status Reason Start Date Expiration Date Visits Requested Visits Authorized [id number] Pending Review Specialty Services Required 12/11/2023 12/10/2024 1 1 Specialty Diagnoses / Procedures Referred By Seema leo Referred To Contact Radiology Diagnoses Chronic bilateral low back pain, unspecified whether sciatica present Procedures MR lumbar spine without contrast Marcia Plunkett, PA [address] [facility] [place] [address] Referral ID Status Reason Start Date Expiration Date V isits Requested Visits Authorized [id number] Pending Review 12/11/2023 12/10/2024 1 1 Chief [...] section and content) DATE CREATED AUTHOR 01/18/2023 [facility] DATE CREATED AUTHOR AUTHOR'S ORGANIZ ATION 12/14/2023 [facility] DATE CREATED AUTHOR AUTHOR'S ORGANIZ ATION 06/12/2024 [facility] REASON FOR VISIT (unrecogniz ed section [...] May 06, 2024 End: May 06, 2024 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 [employer] [facility]. provides no warranty or guarantee of the accuracy or completeness of information in this document.
--- NOTE | 2024-06-17 11:12 | PM.CN ---
Consult Note: HPI Data of Consult Patient: known to practice within the last 3 years Consult date: 05/17/24 Requesting Physician: Yanira Betts NP Primary Care Provider: Pramod Smith DO Consult Narrative Reason for consult: low back, bilateral lower extremity pain Narrative: 78yom who presents for evaluation. longstanding low back, bilateral lower extremity pain. history of fusion from l3-s1. lumbar imaging reviewed, which is significant for severe stenosis at l1-2 and l2-3, with facet arthropathy at those levels noted as well. also foraminal narrowing noted at bilateral l4-5. has completed physical therapy and continues in provider directed home exercises for >6 weeks, without lasting benefit. uses otc pain meds as needed, does not like pain meds. denies adverse med side effects. Recent bilateral L2/3 L4% TFESI providing >50% improvement ongoing. cc:: CC: Yanira Betts NP Review of Systems ROS Status of ROS 10 or more systems reviewed and unremarkable except as noted in history and below Musculoskeletal Reports: back pain PFSH PFSH Medical History (Updated 05/18/24 @ 08:29 by Jazz Dent) Pancreatic cyst ?K86.2 - Cyst of pancreas (ICD-10) Lung nodule ?R91.1 - Solitary pulmonary nodule (ICD-10) ASHD (arteriosclerotic heart disease) ?I25.10 - Atherosclerotic heart disease of [place] coronary artery without angina pectoris (ICD-10) Hypertension ?I10 - Essential (primary) hypertension (ICD-10) Hypercholesterolemia ?E78.00 - Pure hypercholesterolemia, unspecified (ICD-10) Hypothyroid ?E03.9 - Hypothyroidism, unspecified (ICD-10) Generalized anxiety disorder ?F41.1 - Generalized anxiety disorder (ICD-10) Surgical History History of lumbar surgery ?Z98.890 - Other specified postprocedural states (ICD-10) H/O heart bypass surgery ?Z95.1 - Presence of aortocoronary bypass graft (ICD-10) H/O cervical spine surgery ?Z98.890 - Other specified postprocedural states (ICD-10) History of tonsillectomy and adenoidectomy ?Z90.89 - Acquired absence of other organs (ICD-10) Meds Home Medications and Allergies Home Medications ?Medication ?Instructions ?Recorded ?Confirmed ?Type brimonidine 0.2 % eye drops 1 drp ophthalmic (eye) DAILY 05/18/24 06/07/24 History clonazepam 0.5 mg tablet 0.5 mg PO Q8H PRN anxiety 05/18/24 06/07/24 History latanoprost 0.005 % eye drops 1 drp ophthalmic (eye) DAILY 05/18/24 06/07/24 History levothyroxine 112 mcg capsule 112 mcg PO DAILY 05/18/24 05/24/24 History lisinopril 10 mg tablet 10 mg PO DAILY 05/18/24 06/07/24 History metoprolol tartrate 50 mg tablet 50 mg PO BID 05/18/24 06/07/24 History tramadol 50 mg tablet 25 mg PO DAILY PRN pain 05/18/24 06/07/24 History Allergies Allergy/AdvReac Type Severity Reaction Status Date / Time No Known Drug Allergies Allergy Verified 06/07/24 11:40 Exam Constitutional Documenting provider has reviewed patient's vital signs: yes Common normals: no apparent distress, oriented x3, healthy appearing, alert and well nourished General appearance: cooperative [facility] Common normals: normocephalic, hearing grossly normal bilaterally and moist oral mucous membranes Head and scalp: normocephalic Eye Common normals: PERRL Pupil: PERRL Neck & C-Spine Common normals: full ROM General: normal visual inspection Chest Common normals: inspection of chest normal Respiratory Common normals: normal respiratory effort, no retractions and no use of accessory muscles Back & Pelvis Lumbar spine/lower back: ROM limited and straight leg raise negative bilaterally Sacroiliac joints: SI joints normal Other: negative facet loading strength 5/5 in BLE sensation intact BLE Extremity Common normals: normal to inspection and full ROM Neuro Common normals: oriented x3, CN's II-XII intact bilaterally, moves all extremities, no focal motor deficits, no sensory deficits noted, deep tendon reflexes 2+ bilaterally and gait normal Sensorium/orientation: alert Motor exam: strength 5/5 throughout and no movement abnormalities noted Psych Common normals: mental status grossly normal, thought process normal, cooperative, affect normal, speech normal and activity/motor behavior normal Speech: normal speech Thought process: normal thought process Results Additional Findings Additional findings: If on a controlled substance or opioids, I have checked an [place]AR[place] report on this patient and there are no aberrancies noted in the prescribing history.??If on a controlled substance or opioid a drug screen was completed and reviewed within the last year, and if there has not been a drug screen completed we ordered one today to monitor higher risk, state monitored pain medication use. As part of providing excellent, safe, comprehensive care, the following was completed at our patient's visit: 1. A medication reconciliation and review to ensure accurate knowledge of current/active medications, including asking our patients to inform us about any dxsf-dmg-xslshks medications or herbal remedies/nutritional supplements/alternative remedies. 2. A review to specifically ensure our patients have had annual screening for screening for depression, screening for tobacco use, and screening for unhealthy alcohol use. For concerning screenings had a discussion with the patient, provided patient education, and recommended follow-up with primary care provider when appropriate. If patient noted with a risk of falling, they received education on strength, gait, and balance training to prevent future risk of falling. Assessment and Plan Assessment and Plan (1) Lumbar stenosis with neurogenic claudication: (2) Lumbar spondylosis: (3) Lumbar postlaminectomy syndrome: Plan f/u 3 months, sooner if needed
== END 2024-06-17 10:27 | disposition home or self-care (01) ==
LOC: PM 10:26
PROVIDERS: PCP Internal Medicine; Visit Provider Nurse Practitioner
DX: M48.062 Spinal stenosis, lumbar region with neurogenic claudication (principal); M47.816 Spondylosis without myelopathy or radiculopathy, lumbar region; M96.1 Postlaminectomy syndrome, not elsewhere classified
CPT/HCPCS: G0463

== ENCOUNTER 2024-09-22 10:59 | Outpatient (OUT) | payer MEDICARE, SELFPAY ==
--- NOTE | 2024-09-22 11:32 | P.CN_ITS ---
Consult Note: HPI Data of Consult Patient: known to practice within the last 3 years Consult date: 05/17/24 Requesting Physician: Yanira Betts NP Primary Care Provider: Pramod Smith DO Consult Narrative Reason for consult: low back, bilateral lower extremity pain Narrative: 78yom who presents for evaluation. longstanding low back, bilateral lower extremity pain. history of fusion from l3-s1. lumbar imaging reviewed, which is significant for severe stenosis at l1-2 and l2-3, with facet arthropathy at those levels noted as well. also foraminal narrowing noted at bilateral l4-5. has completed physical therapy and continues in provider directed home exercises for >6 weeks, without lasting benefit. uses otc pain meds as needed as well as tramadol through PCP, does not like pain meds. denies adverse med side effects. Pt continues to have moderate to severe right low back and right leg pain, as well as increased right knee pain. cc:: CC: Yanira Betts NP Review of Systems ROS Status of ROS 10 or more systems reviewed and unremark able except as noted in history and below Musculoskeletal Reports: back pain, extremity pain and joint pain PFSH PFSH Medical History (Updated 09/22/24 @ 11:36 by Yanira Betts NP) Pancreatic cyst ?K86.2 - Cyst of pancreas (ICD-10) Lung nodule ?R91.1 - Solitary pulmonary nodule (ICD-10) ASHD (arteriosclerotic heart disease) ?I25.10 - Atherosclerotic heart disease of [place] coronary artery without angina pectoris (ICD-10) Hypertension ?I10 - Essential (primary) hypertension (ICD-10) Hypercholesterolemia ?E78.00 - Pure hypercholesterolemia, unspecified (ICD-10) Hypothyroid ?E03.9 - Hypothyroidism, unspecified (ICD-10) Generalized anxiety disorder ?F41.1 - Generalized anxiety disorder (ICD-10) Surgical History History of lumbar surgery ?Z98.890 - Other specified postprocedural states (ICD-10) H/O heart bypass surgery ?Z95.1 - Presence of aortocoronary bypass graft (ICD-10) H/O cervical spine surgery ?Z98.890 - Other specified postprocedural states (ICD-10) History of tonsillectomy and adenoidectomy ?Z90.89 - Acquired absence of other organs (ICD-10) Meds Home Medications and Allergies Home Medications ?Medication ?Instructions ?Recorded ?Confirmed ?Type brimonidine 0.2 % eye drops 1 drp ophthalmic (eye) DAILY 05/18/24 06/07/24 History clonazepam 0.5 mg tablet 0.5 mg PO Q8H PRN anxiety 05/18/24 06/07/24 History latanoprost 0.005 % eye drops 1 drp ophthalmic (eye) DAILY 05/18/24 06/07/24 History levothyroxine 112 mcg capsule 112 mcg PO DAILY 05/18/24 05/24/24 History lisinopril 10 mg tablet 10 mg PO DAILY 05/18/24 06/07/24 History metoprolol tartrate 50 mg tablet 50 mg PO BID 05/18/24 06/07/24 History tramadol 50 mg tablet 25 mg PO DAILY PRN pain 05/18/24 06/07/24 History Allergies Allergy/AdvReac Type Severity Reaction Status Date / Time No Known Drug Allergies Allergy Verified 06/07/24 11:40 Exam Constitutional Documenting provider has reviewed patient's vital signs: yes Common normals: no apparent distress, oriented x3, healthy appearing, alert and well nourished General appearance: cooperative [facility] Common normals: normocephalic, hearing grossly normal bilaterally and moist oral mucous membranes Head and scalp: normocephalic Eye Common normals: PERRL Pupil: PERRL Neck & C-Spine Common normals: full ROM General: normal visual inspection Chest Common normals: inspection of chest normal Respiratory Common normals: normal respiratory effort, no retractions and no use of accessory muscles Back & Pelvis Lumbar spine/lower back: ROM limited and pain with ROM Sacroiliac joints: SI joint(s) abnormal Other: negative facet loading right sij positive marcy(patricks), gaenslens, thigh thrust, compression test strength 5/5 in BLE altered sensation right L3,4,5 Extremity Common normals: normal to inspection and full ROM Right lower extremity: knee joint Other: enlarged diameter to right knee, no edema. no redness/warmth. increased pain with medial and lateral stress testing, no instability noted. Neuro Common normals: oriented x3, CN's II-XII intact bilaterally, moves all extremities, no focal motor deficits, no sensory deficits noted, deep tendon reflexes 2+ bilaterally and gait normal Sensorium/orientation: alert Motor exam: strength 5/5 throughout and no movement abnormalities noted Psych Common normals: mental status grossly normal, thought process normal, cooperative, affect normal, speech normal and activity/motor behavior normal Speech: normal speech Thought process: normal thought process Results Additional Findings Additional findings: If on a controlled substance or opioids, I have checked an [place]ARRS report on this patient and there are no aberrancies noted in the prescribing history.??If on a controlled substance or opioid a drug screen was completed and reviewed within the last year, and if there has not been a drug screen completed we ordered one today to monitor higher risk, state monitored pain medication use. As part of providing excellent, safe, comprehensive care, the following was completed at our patient's visit: 1. A medication reconciliation and review to ensure accurate knowledge of current/active medications, including asking our patients to inform us about any lepa-jyd-adesoyl medications or herbal remedies/nutritional supplements/alternative remedies. 2. A review to specifically ensure our patients have had annual screening for screening for depression, screening for tobacco use, and screening for unhealthy alcohol use. For concerning screenings had a discussion with the patient, provided patient education, and recommended follow-up with primary care provider when appropriate. If patient noted with a risk of falling, they received education on strength, gait, and balance training to prevent future risk of falling. Assessment and Plan Assessment and Plan (1) Lumbar postlaminectomy syndrome: (2) Lumbar spondylosis: (3) Lumbar stenosis with neurogenic claudication: (4) Sacroiliitis: (5) Chronic pain of right knee: Plan extensive conversation today with pt and about multiple treatment options including medication management and additional interventional therapy. With hx of failed back syndrome pt could benefit from a spinal cord stimulator, handout provided pt will think more about. Could consider right L3,4,5 TFESI followed by right SIJ injection if needed. update right knee xray to assess chronic right knee pain, likely related to L4/5 pain based on symptoms however likely degree of OA. start gabapentin 100mg HS increasing to 200mg as tolerated, continue current medications. call office to discuss response to medications. f/u 1 month to evaluate plan of care and review imaging. continue HEP as tolerated at this time
== END 2024-09-22 11:00 | disposition home or self-care (01) ==
LOC: PM 11:00
PROVIDERS: PCP Internal Medicine; Visit Provider Nurse Practitioner
DX: M96.1 Postlaminectomy syndrome, not elsewhere classified (principal); M47.816 Spondylosis without myelopathy or radiculopathy, lumbar region; M48.062 Spinal stenosis, lumbar region with neurogenic claudication; M46.1 Sacroiliitis, not elsewhere classified; M25.561 Pain in right knee
CPT/HCPCS: G0463

== ENCOUNTER 2024-11-11 10:26 | Outpatient (OUT) | payer MEDICARE, SELFPAY ==
--- NOTE | 2024-11-11 10:40 | XR_ITS ---
The [address] [address] Patient Name: FUNMILAYO MACKENZIE MRN: [id number] date: 1945 Sex: M Assigned Patient Location: RAD Current Patient Location: RAD Accession/Order Number: [id number] Exam Date: 11/11/2024 10:49 Report Date: 11/11/2024 14:55 At the request of: MAURICIO BOBBY Procedure: XR knee RT 4V PROCEDURE: XR knee RT 4V HISTORY: Right Knee Pain COMPARISON: None. FINDINGS: BONES:Moderate to marked narrowing of the medial joint space. Moderate size periarticular degenerative osteophytes involving all 3 compartments. Large separate ossification at the superior-lateral margin of the patella suspected represent an old unfused secondary ossification center. SOFT TISSUES:No visible soft tissue swelling. EFFUSION:None visible. OTHER: Negative. XR/XR knee RT 4V IMPRESSION: 1. 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 Electronically authenticated by: JESSICA MELENDEZ Date: 11/11/2024 14:55
--- NOTE | 2024-11-11 10:42 | XR_ITS ---
The [address] [address] Patient Name: FUNMILAYO MACKENZIE MRN: [id number] date: 1945 Sex: M Assigned Patient Location: [facility] Current Patient Location: [facility] Accession/Order Number: [id number] Exam Date: 11/11/2024 10:49 Report Date: 11/11/2024 14:53 At the request of: MAURICIO BOBBY Procedure: XR hip RT 2V w/ pelvis PROCEDURE: XR hip RT 2V w/ pelvis HISTORY: Right Hip Pain , chronic COMPARISON: None. FINDINGS: BONES:Degenerative osteophytes along the superior rim the acetabulum. No significant joint space narrowing. No articular surface irregularity or significant osteophytes involving the femoral head. Mild degenerative changes of the right sacroiliac joint. SOFT TISSUES:No visible soft tissue swelling. EFFUSION:None visible. OTHER: Mechanical fusion of the lower lumbar spine. XR/XR hip RT 2V w/ pelvis IMPRESSION: 1. Mild degenerative changes. 2. No acute bone abnormality. Electronically authenticated by: JESSICA MELENDEZ Date: 11/11/2024 14:53
--- OUTSIDE RECORDS SUMMARY | 2024-11-11 10:47 | XMS_ITS | CCD ---
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 Dominic Yan Primary [...] Unavailable LUIS, PRAMOD Mena Primary Care Unavailable Ball Pramod GIORDANO Primary Care Provider Naeem CABEZAS, Carlos Manuel Hagan Attending Unavailable Gijr CABEZAS, Carlos Manuel Hagan Attending Unavailable Naeem CABEZAS, Carlos Manuel Hagan Attending Unavailable Allergies Allergy Classification Reported Allergen(s) Allergy Type Date of Onset Reaction(s) Facility Cholesterol Absorption Inhibitors (1 source) ezetimibe Drug Allergy 4 Unknown Reaction [facility] Doxycycline (1 source) Doxycycline Drug Allergy 4 Unknown Reaction [facility] HMG-CoA Reductase Inhibitors (statins) (1 source) Simvastatin Drug Allergy 4 Unknown Reaction [facility] Opioid Agonists (1 source) Morphine Drug Allergy 4 mood disturbance [facility] venlafaxine (1 source) venlafaxine Drug Allergy 4 Unknown Reaction [facility] (5 sources) atorvastatin; Translations: [Lipitor] Drug Allergy MYALGIAS [place] (5 sources) ezetimibe; Translations: [Zetia] Drug Allergy MYALGIAS [place] (5 sources) ezetimibe / Simvastatin; Translations: [Vytorin 10-10] Drug Allergy MYALGIAS [place] [employer] [facility] [place] (5 sources) Lovastatin; Translations: [lovastatin] Drug Allergy MYALGIAS [place] (1 source) Pravastatin; Translations: [pravastatin] Drug Allergy MYALGIAS [place] (5 sources) rosuvastatin; Translations: [Crestor] Drug Allergy MYALGIAS [place] [employer] [facility] [place] (4 sources) Pravastatin; Translations: [pravastatin] Drug Allergy MYALGIAS [place] (20 sources) ezetimibe Drug Allergy 4 Unknown, Unknown Reaction [facility] (20 sources) Morphine; Translations: [MORPHINE] Drug Allergy 0 Confusion [facility] (13 sources) Doxycycline Drug Allergy 4 Unknown, Unknown Reaction [facility] (15 sources) Simvastatin; Translations: [SIMVASTATIN] Drug Allergy 4 Unknown, Unknown Reaction [facility] (13 sources) venlafaxine Drug Allergy 4 Unknown, Unknown Reaction [facility] (4 sources) patient allergy list reviewed by nurse or physicia Propensity to adverse reactions 9 Comment:Done [employer] Other Medications Current Medications Medication Drug Class(es) [...] mg oral tablet (20 sources) Benzodiazepine Start: 06-14-2024 End: 06-14-2024 take 0.5 mg by mouth three times daily Clonazepam Active 0.5 MG PO Three times daily 270 90 June 14, 2024 5:08pm Start: 03-05-2024 End: 06-14-2024 take 1 tablet by mouth three times daily for anxiety, then take 0.5 tablet by mouth three times daily for anxiety Clonazepam Discontinued 0.75 MG PO Three times daily 405 90 March 05, 2024 1:31pm June 14, 2024 5:08pm take 1 to 1 and 1/2 tablets [...] Active Start: 01-29-2016 take 1 tablet by bj three times daily clonazepam 0.5 mg oral tablet 01/29/2016 take 1 tablet (0.5 mg) by oral route 3 times per day take 0.5 tablet by [facility] every twelve hours KlonoPIN 0.5 MG 0.5 [...] chew and/or divide. take 2 tablets by [facility] every twenty-four hours Colestipol HCl 1 GM 2 tablets Orally Once a day Active take 1 tablet by bj at bedtime colestipoL (COLESTID) 1 g tablet Take 1 tablet (1 g total) by mouth in the morning and 1 tablet (1 g total) before bedtime. 0 Active take 2 tablets by [facility] every twenty-four hours Colestipol HCl 1 [...] once daily Levothyroxine Active 0 .ROUTE .COMPLEX 90 January 14, 2024 7:23pm TAKE ONE TABLET BY MOUTH DAILY Start: 01-14-2024 End: 01-14-2024 take 1 tablet by mouth once daily in the morning Levothyroxine (Synthroid) 112 mcg tablet Discontinued 112 MCG PO Every morning January 14, 2024 1:00am January 14, 2024 7:23pm Start: 01-27-2017 take 1 tablet by bj once daily Synthroid 100 mcg oral tablet 01/27/2017 take 1 tablet (100 mcg) by oral route once daily take 1 capsule by [facility] once daily Levothyroxine Sodium 112 MCG TAKE ONE CAPSULE BY MOUTH DAILY Active take 1 capsule by [facility] once daily Levothyroxine Sodium 112 MCG TAKE ONE CAPSULE BY MOUTH DAILY Active lisinopril 10 mg oral tablet (20 sources) Angiotensin Converting Enzyme Inhibitor Start: 03-29-2024 End: 07-21-2024 take 1 tablet by mouth once daily Lisinopril Active 0 .ROUTE .COMPLEX July 21, 2024 8:21pm TAKE 1 TABLET BY MOUTH DAILY Start: 02-17-2024 End: 03-29-2024 take 10 mg [...] by mouth twice a day-dosage not provided cefuroxime 500 mg oral tablet (2 sources) Cephalosporin Antibacterial Start: 2023 End: 2023 take 500 mg by mouth twice daily Cefuroxime Axetil Discontinued 500 MG PO Twice daily 14 June 14, 2024 12:00am August 04, 2024 10:07am cholecalciferol 0.05 mg oral tablet (5 sources) Vitamin D Start: 2014 take 5 drop(s) by mouth once daily Vitamin D3 2,000 unit oral tablet 07/10/2015 dosage not reported-takes 5 drops per day cholestyramine (bulk) Miscellaneous Powder (1 source) End: 2012 take 4 g by mouth once daily cholestyramine (bulk) Miscellaneous Powder 04/13/2013 use as directed 4 GM BY MOUTH DAILY Cholestyramine Resin (4 sources) Bile Acid Sequestrant End: 2012 take 4 g by mouth once daily cholestyramine (bulk) Miscellaneous Powder 04/13/2013 use as directed 4 GM BY MOUTH DAILY ubidecarenone 100 mg oral capsule (5 sources) take 1 capsule by mouth once daily CoQ-10 100 mg oral capsule take 1 capsule by oral route daily ergocalciferol 1.25 mg oral capsule (5 sources) Provitamin D2 Compound End: 2012 take 1 capsule by mouth every week Vitamin D2 50,000 unit oral capsule 04/13/2013 take 1 capsule (50,000 unit) by oral route once weekly 1 ml evolocumab 140 mg/ml auto-injector (5 sources) PCSK9 Inhibitor Start: 2018 End: 2019 inject 1 mL by subcutaneous injection every other week Dimas Berry 140 mg/mL subcutaneous pen injector 03/09/2019 03/13/2020 [...] 1 tablet by mouth once daily vitamin U18-zdgwl acid 500-400 mcg oral tablet take 1 tablet by oral route daily folic acid 0.4 mg / vitamin b12 0.5 mg oral tablet (2 sources) Vitamin B12 take 1 tablet by mouth once daily vitamin Q09-mthjm acid 500-400 mcg oral tablet take 1 tablet by oral route daily Joint Support [id number] mg oral capsule (5 sources) take 1 capsule by mouth twice daily Joint Support [phone] mg oral capsule take 1 capsule by [...] heart disease (20 sources) Coronary atherosclerosis of [place] coronary artery; Translations: [Coronary arteriosclerosis] Onset: 4 [...] 5 Chronic Other aftercare (3 sources) Other snf (current) drug therapy; Translations: [OTH HALFWAY CURRENT DRUG THERAPY] Onset: 2 Episodic Other aftercare (4 sources) Long-term current use of drug therapy; Translations: [Other snf (current) drug therapy] Episodic Other aftercare (2 sources) Drug therapy finding; Translations: [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 of 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 analgesic] 08-04-2024 Episodic Other aftercare (2 sources) correction (current) use of opiate analgesic; Translations: [Long-term (current) use of other medications] 08-04-2024 Episodic Other circulatory disease (16 sources) Carotid [...] of falling] Episodic Other lower respiratory disease (16 sources) Solitary pulmonary nodule; Translations: [Solitary pulmonary nodule] Onset: 3 Episodic Other lower respiratory disease (20 sources) Nodule of lung; Translations: [Solitary pulmonary [...] conditions (not mental disorders or infectious disease) (13 sources) Nonspecific abnormal electrocardiogram [ECG] [EKG]; Translations: [...] Translations: [Acute maxillary sinusitis, unspecified] Onset: 3 06-14-2024 Episodic Pancreatic disorders (not diabetes) (20 sources) [...] astIllness_name_27 Onset: 07-10-2015 Unclassified (1 source) [id number] astIllness_name_23 Onset: 07-10-2015 Unclassified (1 source) [id number] astIllness_name_24 Onset: 07-10-2015 Unclassified (1 source) [id number] astIllness_name_27 Onset: 07-10-2015 Unclassified (2 sources) Acute bilateral low back pain without sciatica M54.50 Results Test Name Value Interpretation Reference Range Facility Basophils Auto (Bld) [#/Vol] on 05-13-2024 Basophils (Bld) [#/Vol] 0.0 10 3/uL 0.0-0.1 [facility] Basophils/100 WBC Auto (Bld) on 05-13-2024 Basophils/100 WBC (Bld) 0.6 % 0.2-2.0 [facility] Cholesterol in LDL Calc [Mas s/Vol]on 05-13-2024 Cholesterol in LDL [Mass/Vol] 139.0 mg/dL [facility] Comment on above: <100 mg/dl [id number] 0-129 mg/dl NEAR OR ABOVE [id number] mg/dl BORDERLINE [id number] mg/dl HIGH>190 mg/dl VERY HIGH Cholesterol in VLDL Calc [Ma ss/Vol]on 05-13-2024 Cholesterol in VLDL [Mass/Vol] 40.2 mg/dL [facility] Eosinophils/100 WBC Auto (Bl d)on 05-13-2024 Eosinophils/100 WBC (Bld) 3.4 % 0.9-7.0 [facility] Erythrocyte distribution wid th Auto (RBC) [Ratio]on 05-13-2024 Erythrocyte distribution width (RBC) [Ratio] 12.4 % 11.0-15.0 [facility] Estimated glomerular filtrat ion rate (GFR) non- Americanon 05-13-2024 GFR/1.73 sq M.predicted among non-blacks MDRD (S/P/Bld) [Vol rate/Area] 50 mL/min/{1.73_m2} Low >=60 [facility] Globulin Calc (S) [Mass/Vol] on 05-13-2024 Globulin (S) [Mass/Vol] 3.9 g/dL [facility] Hematocrit Auto (Bld) [Volum e fraction]on 05-13-2024 Hematocrit (Bld) [Volume fraction] 44.1 % 42.0-54.0 [facility] Hemoglobin [Mass/volume] in Bloodon 05-13-2024 Hemoglobin (Bld) [Mass/Vol] 14.8 g/dL 14.0-18.0 [facility] Laboratory - Chemistry and C hemistry - challengeon 05-13-2024 Albumin [Mass/Vol] 4.0 g/dL 3.4-5.0 [facility] ALP [Catalytic activity/Vol] 119 U/L High 46-116 [facility] ALT [Catalytic activity/Vol] 25 U/L 16-63 [facility] AST [Catalytic activity/Vol] 17 U/L 15-37 [facility] Bilirubin [Mass/Vol] 0.7 mg/dL 0.2-1.0 [facility] Calcium [Mass/Vol] 9.4 mg/dL 8.5-10.1 [facility] Chloride [Moles/Vol] 105 mmol/L 98-107 [facility] Cholesterol [Mass/Vol] 212 mg/dL High <=200 [facility] Cholesterol in HDL [Mass/Vol] 33 mg/dL Low 40-60 [facility] Comment on above: > or =60 mg/dl - LOW CARDIOVASCULAR RISK<40 mg/dl - HIGH CARDIOVASCULAR RISK CO2 [Moles/Vol] 23.4 mmol/L 21.0-32.0 [facility] Creatinine [Mass/Vol] 1.37 mg/dL High 0.70-1.30 [facility] GFR/1.73 sq M.predicted MDRD (S/P/Bld) [Vol rate/Area] mL/min/{1.73_m2} >=60 [facility] Glucose [Mass/Vol] 115 mg/dL High 74-106 [facility] Potassium [Moles/Vol] 4.2 mmol/L 3.5-5.1 [facility] Protein [Mass/Vol] 7.9 g/dL 6.4-8.2 [facility] Sodium [Moles/Vol] 140 mmol/L 136-145 [facility] Triglyceride [Mass/Vol] 201 mg/dL High <=150 [facility] TSH Qn 0.730 m[IU]/L 0.358-3.740 [facility] Urea nitrogen [Mass/Vol] 24.0 mg/dL High 7.0-18.0 [facility] Urea nitrogen/Creatinine [Mass ratio] 17.5 mg/mg [facility] Laboratory - Hematology and Cell countson 05-13-2024 Immature granulocytes/100 WBC (Bld) 0.7 % High 0.0-0.5 [facility] Leukocytes [#/volume] correc denise for nucleated erythrocytes in Blood by Automated counon 05-13-2024 WBC corrected for nucl RBC Auto (Bld) [#/Vol] 7.1 10 3/uL 4.0-11.0 [facility] Lymphocytes Auto (Bld) [#/Vo l]on 05-13-2024 Lymphocytes (Bld) [#/Vol] 2.4 10 3/uL 1.2-3.8 [facility] Lymphocytes/100 WBC Auto (Bl d)on 05-13-2024 Lymphocytes/100 WBC (Bld) 34.3 % 20.5-60.0 [facility] MCH Auto (RBC) [Entitic mass ]on 05-13-2024 MCH (RBC) [Entitic mass] 30.0 pg 25.9-34.0 [facility] MCHC Auto (RBC) [Mass/Vol]on 05-13-2024 MCHC (RBC) [Mass/Vol] 33.6 g/dL 29.9-35.2 [facility] MCV Auto (RBC) [Entitic vol] on 05-13-2024 MCV (RBC) [Entitic vol] 89.5 fL 80.0-94.0 [facility] Monocytes Auto (Bld) [#/Vol] on 05-13-2024 Monocytes (Bld) [#/Vol] 1.0 10 3/uL High 0.3-0.8 [facility] Monocytes/100 WBC Auto (Bld) on 05-13-2024 Monocytes/100 WBC (Bld) 14.5 % High 1.7-12.0 [facility] Neutrophils Auto (Bld) [#/Vo l]on 05-13-2024 Neutrophils (Bld) [#/Vol] 3.3 10 3/uL 1.4-6.5 [facility] Neutrophils/100 WBC Auto (Bl d)on 05-13-2024 Neutrophils/100 WBC (Bld) 46.5 % 43.0-75.0 [facility] No Panel Informationon 05-13 Eosinophils # (Auto) 0.2 10 3/uL 0.0-0.7 [facility] Immature Granulocyte # (Auto) 0.05 10 3/uL High 0.00-0.03 [facility] Prostate Specific Antigen Screen 0.41 ng/mL <=4.00 [facility] Platelet mean volume Auto (B ld) [Entitic vol]on 05-13-2024 Platelet mean volume (Bld) [Entitic vol] 10.1 fL 9.5-13.5 [facility] Platelets Auto (Bld) [#/Vol] on 05-13-2024 Platelets (Bld) [#/Vol] 227 10 3/uL 150-450 [facility] RBC Auto (Bld) [#/Vol]on RBC (Bld) [#/Vol] 4.93 10 6/uL 4.70-6.10 [facility] Serum or plasma albumin/glob ulin mass ratioon 05-13-2024 Albumin/Globulin [Mass ratio] 1.0 {ratio} [facility] Serum or plasma anion gap de terminationon 05-13-2024 Anion gap [Moles/Vol] 15.8 mmol/L [facility] Serum or plasma total choles terol/high density lipoprotein (HDL) cholesterol mass chava 05-13-2024 Cholesterol.total/C holesterol in HDL [Mass ratio] 6.4 {ratio} [facility] Comment on above: 3.3 - 4.4 LOW RISK4. 4 - 7.1 AVERAGE RISK7.1 - 11.0 MODERATE RISK>11.0 HIGH RISK Estimated glomerular filtrat ion rate (GFR) non- Americanon 01-15-2024 GFR/1.73 sq M.predicted among non-blacks MDRD (S/P/Bld) [Vol rate/Area] 55 mL/min/{1.73_m2} >=60 [facility] Laboratory - Chemistry and C hemistry - challengeon 01-15-2024 Creatinine [Mass/Vol] 1.27 mg/dL 0.70-1.30 [facility] GFR/1.73 sq M.predicted MDRD (S/P/Bld) [Vol rate/Area] mL/min/{1.73_m2} >=60 [facility] XR SPINE LUMB COMP INCL BEND 6+ [...] Degenerative changes bilateral sacroiliac joints. Vascular calcifications. 6 Finalized by Richardson Collado MD on 12/04/2023 12:36 PM Normal [facility] Complete Blood Count and Dif sonal 04-24-2023 Anisocytosis Ql (Bld) [employer] Other Basophilic stippling LM Ql (Bld) [employer] Other RBC morphology finding Nom (Bld) [employer] Other Complete Blood Count and Diff [employer] Other CT CHEST WO CONon 01-13-2023 CT [...] by: JESSICA MELENDEZ Date: 2023-01-13 11:47 Normal [facility] CT chest wo conon 01-13-2023 CT chest wo con [place] Other CT CHEST WO CONon 07-01-2022 CT [...] JESSICA MELENDEZ Date: 2022-07-01 14:14 Normal [facility] CBC AUTO DIFFon 04-03-2022 BASO # 0.1 103/ul Normal 0.0-0.1 [facility] Comment on above: Performed By: #### C BC #### [facility] [address] [address] [address] Nahomy Gutiérrez Basophils/100 WBC (Bld) 0.8 % Normal 0.2-2.0 [facility] Comment on above: Performed By: #### C BC #### [facility] [address] [place], [place] [address] Dr. Nahomy Gutiérrez EO # 0.3 103/ul Normal 0.0-0.7 [facility] Comment on above: Performed By: #### C BC #### [facility] [address] [place] [address] Dr. Nahomy Gutiérrez Eosinophils/100 WBC (Bld) 4.6 % Normal 0.9-7.0 [facility] Comment on above: Performed By: #### C BC #### [facility] [address] [place] [address] Dr. Nahomy Gutiérrez Erythrocyte distribution width (RBC) [Ratio] 12.4 % Normal 11.0-15.0 [facility] Comment on above: Performed By: #### C BC #### [facility] [address] [place] [address] Dr. Nahomy Gutiérrez Hematocrit (Bld) [Volume fraction] 47.5 % Normal 42.0-54.0 [facility] Comment on above: Performed By: #### C BC #### [facility] [address] [place] [address] Dr. Nahomy Gutiérrez Hemoglobin (Bld) [Mass/Vol] 15.9 g/dL Normal 14.0-18.0 [facility] Comment on above: Performed By: #### C BC #### [facility] [address] [place] [address] Dr. Nahomy Gutiérrez IG # 0.02 10e3/ul Normal 0.00-0.03 [facility] Comment on above: Performed By: #### C BC #### [facility] [address] [place] [address] Dr. Nahomy Gutiérrez IG % 0.3 % Normal 0.0-0.5 [facility] Comment on above: Performed By: #### C BC #### [facility] [address] [place] [address] Dr. Naohmy Gutiérrez LYMPH # 2.0 103/ul Normal 1.2-3.8 [facility] Comment on above: Performed By: #### C BC #### [facility] [address] [place] [address] Dr. Nahomy Gutiérrez Lymphocytes/100 WBC (Bld) 31.9 % Normal 20.5-60.0 [facility] Comment on above: Performed By: #### C BC #### [facility] [address] [place] [address] Dr. Nahomy Gutiérrez MANUAL DIFF REQ NO Normal [facility] Comment on above: Performed By: #### C BC #### [facility] [address] [place] [address] Dr. Nahomy Gutiérrez MCH (RBC) [Entitic mass] 30.5 pg Normal 25.9-34.0 [facility] Comment on above: Performed By: #### C BC #### [facility] [address] [place] [address] Dr. Nahomy Gutiérrez MCHC (RBC) [Mass/Vol] 33.5 g/dL Normal 29.9-35.2 [facility] Comment on above: Performed By: #### C BC #### [facility] [address] [place] [address] Dr. Nahomy Gutiérrez MCV (RBC) [Entitic vol] 91.0 fL Normal 80.0-94.0 [facility] Comment on above: Performed By: #### C BC #### [facility] [address] [place] [address] Dr. Nahomy Gutiérrez MONO # 0.9 103/ul Critically high 0.3-0.8 [facility] Comment on above: Performed By: #### C BC #### [facility] [address] [place] [address] Dr. Nahomy Gutiérrez Monocytes/100 WBC (Bld) 14.8 % Critically high 1.7-12.0 [facility] Comment on above: Performed By: #### C BC #### [facility] [address] [place] [address] Dr. Nahomy Gutiérrez NEUT # 2.9 103/ul Normal 1.4-6.5 [facility] Comment on above: Performed By: #### C BC #### [facility] [address] [place] [address] Dr. Nahomy Gutiérrez Neutrophils/100 WBC (Bld) 47.6 % Normal 43.0-75.0 [facility] Comment on above: Performed By: #### C BC #### [facility] [address] [address] [address] Nahomy Gutiérrez Platelet mean volume (Bld) [Entitic vol] 9.4 fL Critically low 9.5-13.5 [facility] Comment on above: Performed By: #### C BC #### [facility] [address] [address] [address] Nahomy Gutiérrez PLT 215 103/ul Normal 150-450 [facility] Comment on above: Performed By: #### C BC #### [facility] [address] [address] [address] Nahomy Gutiérrez RBC 5.22 106/ul Normal 4.70-6.10 [facility] Comment on above: Performed By: #### C BC #### [facility] [address] [place] [address] Dr. Nahomy Gutiérrez WBC 6.1 103/ul Normal 4.0-11.0 [facility] Comment on above: Performed By: #### C BC #### [facility] [address] [place] [address] Dr. Nahomy Gutiérrez LIPID PROFILEon 04-03-2022 CHOL-HDL RATIO NORM SEE BELOW Normal [facility] Comment on above: Result Comment: 3.3 - 4.4 LOW RISK 4.4 - 7.1 AVERAGE RISK 7.1 - 11.0 MODERATE RISK >11.0 HIGH RISK Performed By: #### T SH, LIPID, ALT, BMP #### [facility] [address] [place] [address] Dr. Nahomy Gutiérrez Cholesterol [Mass/Vol] 206 mg/dL Critically high <=200 [facility] Comment on above: Performed By: #### T SH, LIPID, ALT, BMP #### [facility] [address] [place] [address] Dr. Nahomy Gutiérrez Cholesterol in HDL [Mass/Vol] 31 mg/dL Critically low 40-60 [facility] Comment on above: Performed By: #### T SH, LIPID, ALT, BMP #### [facility] [address] [place], [place] [id number] Dr. Nahomy Gutiérrez Cholesterol in LDL [Mass/Vol] 121.4 mg/dL Normal [facility] Comment on above: Performed By: #### T SH, LIPID, ALT, BMP #### [facility] [address] [place] [address] Dr. Nahomy Gutiérrez Cholesterol.total/C holesterol in HDL [Mass ratio] 6.6 {ratio} Normal [facility] Comment on above: Performed By: #### T SH, LIPID, ALT, BMP #### [facility] [address] [place] [address] Dr. Nahomy Gutiérrez HDL NORMAL > or = 60 mg/dl - LOW CARDIOVASCULAR RISK <40 mg/dl - HIGH CARDIOVASCULAR RISK Normal [facility] Comment on above: Performed By: #### T SH, LIPID, ALT, BMP #### [facility] [address] [place] [address] Dr. Nahomy Gutiérrez LDL CALC NORMAL SEE BELOW Normal [facility] Comment on above: Result Comment: <100 mg/dl OPTIMAL 100 - 129 mg/dl NEAR OR ABOVE OPTIMAL 130 - 159 mg/dl BORDERLINE HIGH 160 - 189 mg/dl HIGH >190 mg/dl VERY HIGH Performed By: #### T SH, LIPID, ALT, BMP #### [facility] [address] [place] [address] Dr. Nahomy Gutiérrez Triglyceride [Mass/Vol] 268 mg/dL Critically high <=150 [facility] Comment on above: Performed By: #### T SH, LIPID, ALT, BMP #### [facility] [address] [place] [address] Dr. Nahomy Gutiérrez VLDL CALC 53.6 mg/dL Normal [facility] Comment on above: Performed By: #### T SH, LIPID, ALT, BMP #### [facility] [address] [place] [address] Dr. Nahomy Gutiérrez PROF CHEM 8 (BAS METB)on Anion gap [Moles/Vol] 14.3 mmol/L Normal [facility] Comment on above: Performed By: #### T SH, LIPID, ALT, BMP #### [facility] [address] [address] [address] Nahomy Gutiérrez Calcium [Mass/Vol] 9.0 mg/dL Normal 8.5-10.1 [facility] Comment on above: Performed By: #### T SH, LIPID, ALT, BMP #### [facility] [address] [place] [address] Dr. Nahomy Gutiérrez Chloride [Moles/Vol] 104 mmol/L Normal 98-107 [facility] Comment on above: Performed By: #### T SH, LIPID, ALT, BMP #### [facility] [address] [place] [address] Dr. Nahomy Gutiérrez CO2 [Moles/Vol] 23.1 mmol/L Normal 21.0-32.0 [facility] Comment on above: Performed By: #### T SH, LIPID, ALT, BMP #### [facility] [address] [place] [address] Dr. Nahomy Gutiérrez Creatinine [Mass/Vol] 1.15 mg/dL Normal 0.70-1.30 [facility] Comment on above: Performed By: #### T SH, LIPID, ALT, BMP #### [facility] [address] [place] [address] Dr. Nahomy Gutiérrez EGFR-AF SAMOAN >60 Normal >=60 [facility] Comment on above: Performed By: #### T SH, LIPID, ALT, BMP #### [facility] [address] [place] [address] Dr. Nahomy Gtuiérrez EGFR-NON AF SAMOAN >60 Normal >=60 [facility] Comment on above: Performed By: #### T SH, LIPID, ALT, BMP #### [facility] [address] [place] [address] Dr. Nahomy Gutiérrez Glucose [Mass/Vol] 106 mg/dL Normal 74-106 [facility] Comment on above: Performed By: #### T SH, LIPID, ALT, BMP #### [facility] [address] [place] [address] Dr. Nahomy Gutiérrez Potassium [Moles/Vol] 4.4 mmol/L Normal 3.5-5.1 [facility] Comment on above: Performed By: #### T SH, LIPID, ALT, BMP #### [facility] [address] [address] [address] Nahomy Gutiérrez Sodium [Moles/Vol] 137 mmol/L Normal 136-145 [facility] Comment on above: Performed By: #### T SH, LIPID, ALT, BMP #### [facility] [address] [place] [address] Dr. Nahomy Gutiérrez Urea nitrogen [Mass/Vol] 19.0 mg/dL Critically high 7.0-18.0 [facility] Comment on above: Performed By: #### T SH, LIPID, ALT, BMP #### [facility] [address] [place] [address] Dr. Nahomy Gutiérrez Urea nitrogen/Creatinine [Mass ratio] 16.5 mg/mg Normal [facility] Comment on above: Performed By: #### T SH, LIPID, ALT, BMP #### [facility] [address] [place] [address] Dr. [facility] ALT [Catalytic activity/Vol] 29 U/L Normal 16-63 [facility] Comment on above: Performed By: #### T SH, LIPID, ALT, BMP #### [facility] [address] [place] [address] Dr. Nahomy Gutiérrez [facility] 04-03-2022 TSH 1.647 uIU/mL Normal 0.358-3.740 [facility] Comment on above: Performed By: #### T SH, LIPID, ALT, BMP #### [facility] [address] [place] [address] Dr. Nahomy Gutiérrez TSH RANGE SEE BELOW Normal [facility] Comment on above: Result Comment: <0.3 4 UIU/ml HYPERTHYROID 0.34-5.60 UIU/ml EUTHYROID >5.60 UIU/ml HYPOTHYROID Performed By: #### T SH, LIPID, ALT, BMP #### [facility] [address] [place] [address] Dr. Nahomy Gutiérrez Otheron 01-31-2017 Patient Name: Omar Ziegler Invalid Interpretation Code [facility] Vital Signs Date Time Vital Sign Value Performing Clinician Facility 08-04-2024 09:42-0400 Body height 175.26 cm [facility] 08-04-2024 09:42-0400 Body mass index (BMI) [Ratio] 28.7 kg/m2 [facility] 08-04-2024 09:42-0400 Body weight 88.16 kg [facility] 08-04-2024 09:42-0400 Diastolic blood pressure 80 mm[Hg] [facility] 08-04-2024 09:42-0400 Heart rate 77 /min [facility] 08-04-2024 09:42-0400 Respiratory rate 12 /min [facility] 08-04-2024 09:42-0400 Systolic blood pressure 130 mm[Hg] [facility] 05-06-2024 09:16-0400 Body height 175.26 cm [facility] 05-06-2024 09:16-0400 Body mass index (BMI) [Ratio] 28.8 kg/m2 [facility] 05-06-2024 09:16-0400 Body weight 88.67 kg [facility] 05-06-2024 09:16-0400 Diastolic blood pressure 80 mm[Hg] [facility] 05-06-2024 09:16-0400 Heart rate 76 /min [facility] 05-06-2024 09:16-0400 Respiratory rate 12 /min [facility] 05-06-2024 09:16-0400 Systolic blood pressure 130 mm[Hg] [facility] 02-18-2024 09:50-0400 Body height 175.26 cm [facility] 02-18-2024 09:50-0400 Body mass index (BMI) [Ratio] 29.5 kg/m2 [facility] 02-18-2024 09:50-0400 Body weight 90.83 kg [facility] 02-18-2024 09:50-0400 Diastolic blood pressure 96 mm[Hg] [facility] 02-18-2024 09:50-0400 Heart rate 73 /min [facility] 02-18-2024 09:50-0400 Respiratory rate 12 /min [facility] 02-18-2024 09:50-0400 Systolic blood pressure 172 mm[Hg] [facility] 12-11-2023 11:38-0500 Body height 175.3 cm Marcia Plunkett PA Work Phone: [facility] [employer] 12-11-2023 11:38-0500 Body mass index (BMI) [Ratio] 29.39 kg/m2 Marcia Plunkett PA Work Phone: [facility] 12-11-2023 11:38-0500 Body weight 90.27 kg Marcia Plunkett PA Work Phone: [employer] 12-11-2023 11:38-0500 Diastolic blood pressure 115 mm[Hg] Marcia Plunkett PA Work Phone: [employer] 12-11-2023 11:38-0500 Heart rate 68 /min Marcia Plunkett PA Work Phone: [employer] 12-11-2023 11:38-0500 SaO2% (BldA) [Mass fraction] 99 % Marcia Plunkett PA Work Phone: [employer] 12-11-2023 11:38-0500 Systolic blood pressure 156 mm[Hg] Marcia Plunkett PA Work Phone: [employer] 07-23-2023 10:00-0400 Body height 175.26 cm Pramod Ball Other [employer] Other 07-23-2023 10:00-0400 Body mass index (BMI) [Ratio] 29 kg/m2 Pramod Ball Other [employer] Other 07-23-2023 10:00-0400 Body weight 89.09 kg Pramod Ball Other [employer] Other 07-23-2023 10:00-0400 Diastolic blood pressure 81 mm[Hg] Pramod Ball Other [employer] Other 07-23-2023 10:00-0400 Respiratory rate 12 /min Pramod Ball Other [employer] Other 07-23-2023 10:00-0400 Systolic blood pressure 133 mm[Hg] Pramod Ball Other [employer] Other 04-21-2023 10:00-0400 Body height 175.26 cm Pramod Ball Other [employer] Other 04-21-2023 10:00-0400 Body mass index (BMI) [Ratio] 29.15 kg/m2 Pramod Ball Other [employer] Other 04-21-2023 10:00-0400 Body weight 89.54 kg Pramod Ball Other [employer] Other 04-21-2023 10:00-0400 Diastolic blood pressure 82 mm[Hg] Pramod Ball Other [employer] Other 04-21-2023 10:00-0400 Respiratory rate 12 /min Pramod Ball Other [employer] Other 04-21-2023 10:00-0400 Systolic blood pressure 130 mm[Hg] Pramod Ball Other [employer] Other 01-15-2023 10:00-0500 Body height 175.26 cm Pramod Ball Other [employer] Other 01-15-2023 10:00-0500 Body mass index (BMI) [Ratio] 29.86 kg/m2 Pramod Ball Other [employer] Other 01-15-2023 10:00-0500 Body weight 91.72 kg Pramod Ball Other [employer] Other 01-15-2023 10:00-0500 Diastolic blood pressure 82 mm[Hg] Pramod Ball Other [employer] Other 01-15-2023 10:00-0500 Respiratory rate 12 /min Pramod Ball Other [employer] Other 01-15-2023 10:00-0500 Systolic blood pressure 118 mm[Hg] Pramod Ball Other [employer] Other 10-17-2021 11:57-0500 Body height 173.99 cm Dominic [facility] 10-17-2021 11:57-0500 Body mass index (BMI) [Ratio] 29.67 kg/m2 [employer] [facility] 10-17-2021 11:57-0500 Body surface area Derived from formula 2.08 m2 [facility] 10-17-2021 11:57-0500 Body weight 89.81 kg Dominic [facility] 10-17-2021 11:57-0500 Diastolic blood pressure 70 mm[Hg] Dominic [facility] 10-17-2021 11:57-0500 Diastolic blood pressure 80 mm[Hg] Dominic [facility] 10-17-2021 11:57-0500 Heart rate 76 /min Dominic [facility] 10-17-2021 11:57-0500 Systolic blood pressure 120 mm[Hg] [facility] 10-17-2021 11:57-0500 Systolic blood pressure 134 mm[Hg] Dominic Yan [facility] 03-09-2019 17:19-0400 BP Diastolic 72 mm[Hg] Dominic [facility] 03-09-2019 17:19-0400 BP Systolic 130 mm[Hg] Dominic [facility] 03-09-2019 16:58-0400 BMI (Body Mass Index) 29.07 kg/m2 Dominic Yan [facility] 03-09-2019 16:58-0400 Body weight 89.81 kg Dominic Yan [facility] 03-09-2019 16:58-0400 BP Diastolic 78 mm[Hg] Dominic [facility] 03-09-2019 16:58-0400 BP Diastolic 76 mm[Hg] Dominic Yan [facility] 03-09-2019 16:58-0400 BP Systolic 140 mm[Hg] Dominic Yan [facility] 03-09-2019 16:58-0400 BP Systolic 136 mm[Hg] Dominic Yan [facility] 03-09-2019 16:58-0400 BSA (Body Surface Area) 2.09 m2 Dominic Yan [facility] 03-09-2019 16:58-0400 Height 175.77 cm Dominic Yan [facility] 03-09-2019 16:58-0400 Pulse (Heart Rate) 72 /min Dominic Plummer [facility] [employer] 03-09-2019 16:58-0400 Weight 89.81 kg Dominic Yan [facility] [place] 01-27-2018 13:55-0400 BMI (Body Mass Index) 28.88 kg/m2 Dominic [facility] 01-27-2018 13:55-0400 Body weight 89.36 kg Dominic Plummer [place] 01-27-2018 13:55-0400 BP Diastolic 82 mm[Hg] Dominic Plummer [place] 01-27-2018 13:55-0400 BP Systolic 136 mm[Hg] Dominic [facility] 01-27-2018 13:55-0400 BP Systolic 130 mm[Hg] Dominic Yan [facility] 01-27-2018 13:55-0400 BSA (Body Surface Area) 2.09 m2 Dominic Yan [facility] 01-27-2018 13:55-0400 Height 175.9 cm Dominic Yan [facility] 01-27-2018 13:55-0400 Pulse (Heart Rate) 60 /min Dominic Lorenzo [facility] [employer] 01-27-2018 13:55-0400 Weight 89.36 kg Dominic [facility] 01-27-2017 13:41-0400 BMI (Body Mass Index) 28.85 kg/m2 Dominic [facility] 01-27-2017 13:41-0400 Body weight 89.13 kg Dominic Yan [facility] 01-27-2017 13:41-0400 BP Diastolic 86 mm[Hg] Dominic Yan [facility] 01-27-2017 13:41-0400 BP Diastolic 84 mm[Hg] Dominic Yan [facility] 01-27-2017 13:41-0400 BP Systolic 134 mm[Hg] Dominic Yan [facility] 01-27-2017 13:41-0400 BP Systolic 132 mm[Hg] Dominic [facility] 01-27-2017 13:41-0400 BSA (Body Surface Area) 2.09 m2 Dominic Plummer [place] 01-27-2017 13:41-0400 Height 175.77 cm Dominic [facility] 01-27-2017 13:41-0400 Pulse (Heart Rate) 68 /min Dominic [facility] [employer] 01-27-2017 13:41-0400 Weight 89.13 kg Dominic [facility] [place] 01-29-2016 12:56-0400 BMI (Body Mass Index) 28.6 kg/m2 Dominic [facility] 01-29-2016 12:56-0400 Body weight 89.13 kg Dominic Yan [facility] 01-29-2016 12:56-0400 BP Diastolic 80 mm[Hg] Dominic [facility] 01-29-2016 12:56-0400 BP Diastolic 82 mm[Hg] Dominic Yan [facility] 01-29-2016 12:56-0400 BP Systolic 148 mm[Hg] Dominic Yan [facility] 01-29-2016 12:56-0400 BP Systolic 146 mm[Hg] Dominic Yan [facility] 01-29-2016 12:56-0400 BSA (Body Surface Area) 2.09 m2 Dominic Yan [facility] 01-29-2016 12:56-0400 Height 176.53 cm Dominic Yan [facility] 01-29-2016 12:56-0400 Pulse (Heart Rate) 72 /min Dominic Lorenzo [facility] 01-29-2016 12:56-0400 Weight 89.13 kg Dominic Plummer [place] 07-10-2015 13:16-0400 BMI (Body Mass Index) 27.95 kg/m2 Dominic Plummer [place] 07-10-2015 13:16-0400 Body weight 87.09 kg Dominic Plummer [place] 07-10-2015 13:16-0400 BP Diastolic 84 mm[Hg] Dominic Plummer [place] 07-10-2015 13:16-0400 BP Diastolic 80 mm[Hg] Dominic [facility] 07-10-2015 13:16-0400 BP Systolic 154 mm[Hg] Dominic [facility] 07-10-2015 13:16-0400 BP Systolic 144 mm[Hg] Dominic [facility] 07-10-2015 13:16-0400 BSA (Body Surface Area) 2.07 m2 Dominic [facility] 07-10-2015 13:16-0400 Height 176.53 cm Dominic Yan [facility] 07-10-2015 13:16-0400 Pulse (Heart Rate) 62 /min Dominic Lorenzo [facility] 07-10-2015 13:16-0400 Weight 87.09 kg Dominic [facility] 07-11-2014 17:42-0400 BMI (Body Mass Index) 27.95 kg/m2 Dominic [facility] 07-11-2014 17:42-0400 Body weight 87.09 kg Dominic [place] [employer] 07-11-2014 17:42-0400 BP Diastolic 76 mm[facility]Hg] [facility] [employer] 07-11-2014 17:42-0400 BP Diastolic 84 mm[Hg] [facility] [employer] 07-11-2014 17:42-0400 BP Systolic 140 mm[Hg] Dominic Yan [facility] [employer] 07-11-2014 17:42-0400 BP Systolic 130 mm[Hg] Dominic Yan [facility] [place] 07-11-2014 17:42-0400 BSA (Body Surface Area) 2.07 m2 Dominic Yan [facility] [employer] 07-11-2014 17:42-0400 Height 176.53 cm Dominic Yan [facility] [employer] [facility] 07-11-2014 17:42-0400 Pulse (Heart Rate) 72 /min Dominic Plummer [facility] [employer] 07-11-2014 17:42-0400 Weight 87.09 kg Dominic Yan [facility] [facility] 04-13-2013 15:51-0400 BMI (Body Mass Index) 28.24 kg/m2 Dominic Yan [facility] [facility] 04-13-2013 15:51-0400 Body weight 88 kg Dominic Yan [facility] [employer] 04-13-2013 15:51-0400 BP Diastolic 74 mm[Hg] Dominic Yan [facility] [place] 04-13-2013 15:51-0400 BP Systolic 148 mm[Hg] Dominic Yan [facility] [employer] 04-13-2013 15:51-0400 BP Systolic 146 mm[Hg] Dominic Yan [facility] [employer] 04-13-2013 15:51-0400 BSA (Body Surface Area) 2.08 m2 Dominic Plummer [facility] 04-13-2013 15:51-0400 Height 176.53 cm Dominic Plummer [employer] [facility] 04-13-2013 15:51-0400 Pulse (Heart Rate) 76 /min Dominic Lorenzo [facility] 04-13-2013 15:51-0400 Weight 88 kg Dominic Plummer [facility] Encounters Encounter Date Encounter Type Care Provider Facility Start: 08-04-2024 End: 08-04-2024 ambulatory [facility] Work Phone: Start: 08-04-2024 End: 08-04-2024 Patient encounter procedure [facility] Work Phone: Start: 06-14-2024 End: 06-14-2024 ambulatory [facility] Work Phone: Start: 06-14-2024 End: 06-14-2024 Patient encounter procedure [facility] Work Phone: Start: 06-07-2024 End: 06-07-2024 ambulatory Carlos Manuel Hartley MD Facility: [facility] Start: 05-24-2024 End: 05-24-2024 ambulatory Carlos Manuel Hartley MD Facility:[facility] Start: 05-17-2024 End: 05-17-2024 ambulatory Carlos Manuel Hartley MD Facility:[facility] Start: 05-13-2024 Non-patient / Non-visit [facility] Work Phone: Start: 05-06-2024 End: 05-06-2024 ambulatory [facility] Work Phone: Start: 05-06-2024 End: 05-06-2024 Patient encounter procedure [facility] Work Phone: Start: 03-05-2024 Non-patient / Non-visit [facility] Work Phone: Start: 02-18-2024 End: 02-18-2024 ambulatory [facility] Work Phone: Start: 02-18-2024 End: 02-18-2024 Patient encounter procedure [facility] Work Phone: Start: 01-15-2024 Non-patient / Non-visit [facility] Work Phone: Start: 01-14-2024 Non-patient / Non-visit [facility] Work Phone: Start: 01-13-2024 Non-patient / Non-visit [facility] Work Phone: Start: 01-05-2024 Non-patient / Non-visit [facility] Work Phone: Start: 12-19-2023 End: 12-19-2023 ambulatory Pramod Smith Other [facility] [employer] Other Start: 12-19-2023 Telephone encounter Pramod Smith [facility] Start: 12-11-2023 End: 12-11-2023 ambulatory MARCIA PLUNKETT [facility] Start: 12-11-2023 End: 12-11-2023 Office outpatient visit 25 minutes Marcia Plunkett PA Work Phone: [facility] Comment on above: Disc displacement, l umbar (Primary Dx); Lumbosacral spondylosis without myelopathy; Chronic bilateral low back pain, unspecified whether sciatica present Start: 12-04-2023 End: 12-05-2023 ambulatory PRAMOD SMITH [facility] Start: 11-05-2023 End: 11-05-2023 ambulatory Pramod Ball Other [employer] Other Start: 11-05-2023 Telephone encounter Pramod Ball [facility] Start: 10-13-2023 End: 10-13-2023 ambulatory Pramod Ball Other [employer] Other Start: 10-13-2023 Telephone encounter Pramod Ball [facility] Start: 07-23-2023 End: 07-23-2023 ambulatory Pramod Ball Other [employer] Other Start: 07-23-2023 Office outpatient vi sit 25 minutes Pramod Ball [facility] Start: 07-23-2023 Telephone encounter Pramod Ball [facility] Start: 07-17-2023 End: 07-17-2023 ambulatory Pramod Ball Other [employer] Other Start: 07-17-2023 Telephone encounter Pramod Ball [facility] Start: 06-18-2023 End: 06-18-2023 ambulatory Pramod Ball Other [employer] Other Start: 06-18-2023 Telephone encounter Pramod Ball [facility] Start: 06-17-2023 End: 06-17-2023 ambulatory Pramod Ball Other [employer] Other Start: 06-17-2023 Telephone encounter Pramod Ball [facility] Start: 06-12-2023 End: 06-12-2023 ambulatory Pramod Ball Other [employer] Other Start: 06-12-2023 Telephone encounter Pramod Ball [facility] Start: 05-08-2023 End: 05-08-2023 ambulatory Pramod Ball Other [employer] Other Start: 05-08-2023 Telephone encounter Pramod Ball [facility] Start: 04-25-2023 End: 04-25-2023 ambulatory Pramod Ball Other [employer] Other Start: 04-25-2023 Telephone encounter [facility] Start: 04-21-2023 End: 04-21-2023 ambulatory Pramod Smith Other [employer] Other Start: 04-21-2023 Patient encounter procedure Pramod Smith [facility] Start: 03-28-2023 End: 03-28-2023 ambulatory Pramod Smith Other [employer] Other Start: 03-28-2023 Telephone encounter Pramod ALEXANDER [facility] Start: 03-15-2023 End: 03-15-2023 ambulatory Pramod Smith Other [employer] Other Start: 03-15-2023 Telephone encounter Pramod Smith CATHERINE [facility] Start: 01-15-2023 End: 01-15-2023 ambulatory Pramod Luis Other [employer] Other Start: 01-15-2023 Office outpatient vi sit 25 minutes Pramod Smith [facility] Start: 01-13-2023 End: 01-14-[address] PRAMOD SMITH Facility:[facility] Start: 01-02-2023 End: 01-02-2023 ambulatory Pramod Smith Other [employer] Other Start: 01-02-2023 Telephone encounter Pramod ALEXANDER [facility] Start: 07-01-2022 End: 07-01-[address] PRAMOD SMITH Facility:[facility] Start: 04-03-2022 End: 04-04-[address] PRAMOD SMITH Facility:[facility] Start: 04-01-2022 Adult health examination Pramod Smith Other [employer] Other Start: 10-17-2021 Office outpatient vi sit 25 minutes Dominic Yan Other [facility] Start: 03-14-2020 Office outpatient vi sit [...] [facility] Start: 07-11-2014 Office Services Dominic aYn Other [facility] Start: 04-13-2013 Office Services Dominic Yan Other [facility] Office Procedures Date Procedure Procedure Detail Performing Clinician Start: 04-03-[address] FRANCO [facility] [place] Comment on above: Performed By: #### P [facility] #### [facility] [address] [place] [address] Dr. Nahomy Gutiérrez Start: 10-17-2021 Docrev cur [...] perfusion study Dominic Yan Start: 01-31-2017 Tc99m luly puga Start: 01-27-2017 Ecg routine ecg w/le [...] Td Vaccines (2 - Td or Tdap) [facility] Start: 12-11-2024 Adult BMI Screening Adult BMI Screen ing [facility] Start: 12-11-2024 Tobacco Screening Tobacco Screening [facility] Start: 07-18-2023 Influenza vaccination Influenza Vacc ine [facility] Start: 01-15-2022 Lipid panel LIPID PROFILE [facility] [employer] Start: 08-05-2008 Fall Risk Screening [facility] [employer] Start: 1993 Administration of varicella zoster vaccine Zoster (Shingles) Vaccine (1 of 2) [employer] Start: 1961 Adult BMI Follow Up Plan Adult BMI Follow Up Plan [facility] Start: 1955 Depression Screening Depression Scre ening [facility] Start: 1943 Medicare Annual Well ness Visit Medicare Annual Wellness Visit [facility] [employer] Comprehensive metabo lic 2000 panel - Serum or Plasma [facility] End: 12-10-2024 MR Lumbar spine WO contrast MR lumbar spine without contrast Imaging Routine Chronic bilateral low back pain, unspecified whether sciatica present 1 Occurrences starting 12/11/2023 until 12/10/2024 DNA SEQ Work Phone: Comment on above: 1 Occurrences starti ng 12/11/2023 until 12/10/2024 [facility] Immunizations Immunization Date Immunization Notes Care Provider Fa marquita 07-16-2020 tetanus toxoid, redu lucila diphtheria toxoid, and acellular pertussis vaccine, adsorbed Marcia MARIE [facility] 10-21-2017 diphtheria, tetanus toxoids and acellular pertussis vaccine, unspecified formulation Pramod Smith Other [facility] Payers Date Payer Category Payer Private Health Insurance [id number] 2007 Medicare [id number] 1959 Medicare [id number] 1959 Private Health Insurance CLI [id number] 1959 Unknown [id number] 1943 Unknown [id number] 1943 Unknown [id number] 1943 Unknown [id number] 1943 Unknown [id number] 6 1943 Unknown [id number] 6 1943 Unknown [id number] 1943 Unknown [id number] 1943 Unknown [id number] Medicare Medicare [id number] Medicare Medicare Outpatient [id number] Unknown [facility] Health Claims [id number] Social History Date Type Detail Facility Start: Former smoker [employer] [facility] Start: [employer] [facility] Start: 12-28-2020 End: 12-11-2023 Sex Assigned At [facility] [employer] Other Start: 11-17-1982 History of tobacco use Current smoke r [facility] Start: 11-17-1982 History of tobacco use Cigarette Smo ker [facility] Start: 12-11-2023 Tobacco use and exposure Smokeless tobacco non-user [facility] Start: 12-11-2023 Alcohol intake Ex-drinker (finding) [facility] Start: 12-28-2020 End: 12-11-2023 History of Social function [facility] Childcare Unknown [facility] Start: 1945 Sex Assigned At Not on file P [employer] [facility] Start: 01-05-2024 Tobacco smoking stat us NHIS Never smoked tobacco (finding) [facility] Start: 1945 Sex Assigned At Male [facility] Clinical Notes 01-01-2022 to 12-19-2023 Note Date & Type Note Facility 12-19-2023 Evaluation note Encounter Date Diagnosis Assessment Notes Dec, Lung nodule (ICD-10 - R91.1) Dec, Pancreatic cyst (ICD-10 - K86.2) [employer] Other 01-25-2024 History of Present illness Narrative* FRANK Solis - 12/11/2023 12:00 PM EST [facility] [address] [place] [address] Patient: Omar Ziegler Sex: male : 1945 [...] 01/01/2022 Performed by Ab Oliva MD at [facility] NECK SURGERY Cervical Spine-Implants THYROID SURGERY 2007 [...] FRANK Solis 12/16/23 0815 documented in this encounterCentral [facility] Medical CenterSaaSAssurance [facility] [id number] Evaluation note* Encounter Date Diagnosis Assessment Notes Treatment Notes Treatment Clinical Notes Sep, ASHD (arteriosclerotic heart disease) (ICD-10 - I25.10) [employer] Other 09-06-2023 Evaluation note* Encounter Date Diagnosis [...] continued monitoring w/ referral for increased symptoms [employer] Other 08-31-2023 Evaluation note* Encounter Date Diagnosis Assessment Notes Treatment Notes Treatment Clinical Notes Jun, Pancreatic cyst (ICD-10 - K86.2) MRCP: - 15mm cyst 04/07, 10/08, - 17mm cyst 06/2023 [employer] Other 08-01-2023 Evaluation note* Encounter Date Diagnosis Assessment Notes Treatment Notes Treatment Clinical Notes Jun, Pancreatic cyst (ICD-10 - K86.2) MRCP: - 15mm cyst 04/07, 10/08, - 17mm cyst 06/2023 [employer] Other 06-22-2023 Evaluation note* Encounter Date Diagnosis Assessment Notes Treatment Notes Treatment Clinical Notes Apr, AGUSTINA (generalized anxiety disorder) (ICD-10 - F41.1) [employer] Other 06-05-2023 Evaluation note* Encounter Date Diagnosis [...] High risk medication use (ICD-10 - Z79.899) [employer] Other 05-12-2023 Evaluation note* Encounter Date Diagnosis Assessment Notes Treatment Notes Treatment Clinical Notes March, AGUSTINA (generalized anxiety disorder) (ICD-10 - F41.1) [employer] Other 04-29-2023 Evaluation note* Encounter Date Diagnosis Assessment Notes Treatment Notes Treatment Clinical Notes Feb, Pancreatic cyst (ICD-10 - K86.2) MRCP: 15mm cyst 04/07, 10/08 [employer] Other 03-01-2023 Evaluation note* Encounter Date Diagnosis [...] - F41.1) Healthy diet, exercise, keep active [employer] Other 02-16-2023 Evaluation note* Encounter Date Diagnosis Assessment Notes Treatment Notes Treatment Clinical Notes Dec, Lung nodule (ICD-10 - R91.1) [employer] Other 02-15-2022 Evaluation note* Encounter Date Diagnosis Assessment Notes Treatment Notes Treatment Clinical Notes Dec, Cyst of pancreas (ICD-10 - K86.2) Continue close imaging surveillance. Radiology describes as benign appearing lesion [facility] [employer] Other Evaluation noteNo InformationNortEncompass Health [facility] [employer] Other Evaluation note* Diagnosis Disc displacement, lumbar- [...] acute Lung nodule acute Pancreatic cyst acute [facility] Work Phone: Evaluation note* Diagnosis Onset [...] acute Medicare annual wellness visit, subsequent noneactive [facility] Work Phone: Evaluation note* Diagnosis Onset Date Resolution Status ASHD (arteriosclerotic heart disease) acute Elevated cholesterol acute AGUSTINA (generalized anxiety disorder) acute Hypertension acute Hypothyroid acute Lumbar spondylosis acute Lung nodule acute Pancreatic cyst acute Screening PSA (prostate specific antigen) acute Medicare annual wellness visit, subsequent noneactive ASHD (arteriosclerotic heart disease) acute Elevated cholesterol acute AGUSTINA (generalized anxiety disorder) acute Hypertension acute Hypothyroid acute Lumbar spondylosis acute Lung nodule acute Opiate analgesic use agreement exists acute Pancreatic cyst acute [facility] Work Phone: Evaluation note* Diagnosis Onset Date Resolution Status Acute sinusitis acute Hypertension acute ASHD (arteriosclerotic heart disease) acute Elevated cholesterol acute AGUSTINA (generalized anxiety disorder) acute Hypertension acute Hypothyroid acute Lumbar spondylosis acute Lung nodule acute Opiate analgesic use agreement exists acute Pancreatic cyst acute [facility] Work Phone: History general Narrative - [...] History HTN 2005 Hospitalization History SEE ABOVE [employer] Other History general Narrative - Reported* Type [...] History HTN 2005 Hospitalization History SEE ABOVE [employer] Other InstructionsNot on filedocumented in this encounter [employer] Summary Purpose Family History Relationship Condition Age at Onset Recorded Date/T gillian father Unknown Coronary artery disease Unknown Not Specified Unknown Relationship Condition Age at Onset Recorded Date/T gillian father Unknown Coronary artery disease Unknown mother Unknown Advance Directives Latest Code Status on File Code Status Date Activated Date Inactivated Comments Full Code 12/31/2021 11:49 PM 01/01/2022 7:15 PM Advance Directive Response Recorded Date/ Time Advance Directives No December 08, 2023 6:36pm Reason for Referral Specialty Diagnoses / Procedures Referred By Contac t Referred To Contact Rehabilitation Diagnoses Disc displacement, lumbar Lumbosacral spondylosis without myelopathy Marcia Plunkett PA [address], [address] [place] [id number] Referral ID Status Reason Start Date Expiration Date Visits Requested Visits Authorized [id number] Pending Review Specialty Services Required 12/11/2023 12/10/2024 1 1 Specialty Diagnoses / Procedures Referred By Contac t Referred To Contact Radiology Diagnoses Chronic bilateral low back pain, unspecified whether sciatica present Procedures MR lumbar spine without contrast Marcia Plunkett PA [address], [address] [place] [id number] Referral ID Status Reason Start Date Expiration Date V isits Requested Visits Authorized [id number] Pending Review 12/11/2023 12/10/2024 1 1 Chief [...] specific antigen) Medicare annual wellness visit, subsequent Chief Complaint Medicare Wellness 3 month f/u Reason for Visit ASHD (arteriosclerot ic heart disease) Elevated cholesterol AGUSTINA (generalized anxiety disorder) Hypertension Hypothyroid Lumbar spondylosis Lung nodule Pancreatic cyst Screening PSA (prostate specific antigen) Medicare annual wellness visit, subsequent ASHD (arteriosclerotic heart disease) Elevated cholesterol AGUSTINA (generalized anxiety disorder) Hypertension Hypothyroid Lumbar spondylosis Lung nodule Opiate analgesic use agreement exists Pancreatic cyst Chief Complaint [phone] sinus i nfection 3 month f/u Reason for Visit Acute sinusitis Hypertension ASHD (arteriosclerotic heart disease) Elevated cholesterol AGUSTINA (generalized anxiety disorder) Hypertension Hypothyroid Lumbar spondylosis Lung nodule Opiate analgesic use agreement exists Pancreatic cyst Additional Source Comments (unrecognized sect ion and content) No Status Records FoundNo Status Records FoundNo Status Records Found INFORMATION SOURCE (unrecogn ized section and content) DATE CREATED AUTHOR 01/18/2023 [facility] DATE CREATED AUTHOR AUTHOR'S ORGANIZ ATION 12/14/2023 [facility] DATE CREATED AUTHOR AUTHOR'S ORGANIZ ATION 06/12/2024 [facility] REASON FOR VISIT (unrecogniz ed section and content) Reason Comments Back Pain Care Teams (unrecognized sec tion and content) Team Status: Active Member Role Status Dates Pramod Smith DO Primary Care Provider Active Team Status: Active Member Role Status Dates Pramod Smith DO Primary Care Provide r, Attending Provider Active Start: May 13, 2024 Team Status: Inactive Member Role Status Dates Pramod Smiht DO Primary Care Provide r, Attending Provider Active Start: June 14, 2024 End: June 14, 2024 Team Status: Inactive Member Role Status Dates Pramod Smith DO Primary Care Provide r, Attending Provider Active Start: August 04, 2024 End: August 04, 2024 Team Status: Active Member Role Status Dates Pramod Smith DO Primary Care Provider Active Team Status: Inactive Member Role Status Felipa Smith DO Primary Care Provide r, Attending [...] May 06, 2024 End: May 06, 2024 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 Start Date End Date Pramod Smith DO [address] [place] [address] PCP - General Internal Medicine 07/16/20 Team Status: Active Member Role Status Dates rPamod Smith DO Primary Care Provider Active Start: January 05, 2024 NANCY Gray Attending Provider Active St art: January 05, 2024 Team Status: Active Member Role Status Dates Pramod Smith , Primary Care Provider Active Start: January 13, 2024 NANCY Gray Attending Provider Active St art: January 13, 2024 Team Status: Active Member Role Status Dates Pramod Smith , DO Primary Care Provider Active Start: January 14, 2024 NANCY Roberto Attending Provider Active Start : January 14, 2024 Team Status: Active Member Role Status Dates Pramod Smith , DO Primary Care Provide r, Attending Provider Active Start: January 15, 2024 Team Status: Active Member Role Status Dates Pramod Smith , DO Primary Care Provide r, Attending Provider Active Start: May 13, 2024 Team Status: Inactive Member Role Status Dates Pramod Smith , DO Primary Care Provide r, Attending Provider Active Start: August 04, 2024 End: August 04, 2024 Team Status: Inactive Member Role Status Dates Pramod Smith , DO Primary Care Provide r, Attending Provider Active Start: June 14, 2024 End: June 14, 2024 Goals (unrecognized section and content) Goals [...] BE BASED ON THE PRIMARY CLINICAL RECORDS. [employer] provides no warranty or guarantee of the accuracy or completeness of information in this document.
== END 2024-11-11 10:27 | disposition home or self-care (01) ==
LOC: RAD 10:28
PROVIDERS: PCP Internal Medicine; Visit Provider Internal Medicine
DX: M25.551 Pain in right hip (principal); M25.561 Pain in right knee; M17.11 Unilateral primary osteoarthritis, right knee
CPT/HCPCS: 73502; 73564

== ENCOUNTER 2025-05-12 08:03 | Outpatient (OUT) | payer MEDICARE, SELFPAY ==
--- OUTSIDE RECORDS SUMMARY | 2025-05-12 08:08 | XMS_ITS | Clinical Summary ---
Author Organization [facility] [facility] tem Address [id number] [address] [place] [address] Care Team Providers Care Distribution Analyst Name Role Phone Pramod Smith DO Primary Care Provider [phone] Allergies Active Allergy Reactions Criticality Noted Date Comments Morphine Confusion Medium 07/16/2020 Simvastatin 12/11/2023 Medications clonazePAM (KlonoPIN) 0.5 mg tablet Take 1 tablet (0.5 mg total) by mouth 2 (two) times a day as needed for anxiety or seizures. Active lisinopriL (PRINIVIL,ZESTR IL) 10 mg tablet Take 1 tablet (10 mg total) by mouth in the morning. Active levothyroxine (SYNTHROID, LEVOTHROID) 100 MCG tablet Take 1 tablet (100 mcg total) by mouth in the morning. Active aspirin 325 mg tablet Take 1 tablet (325 mg total) by mouth in the morning. Active traMADoL (ULTRAM) 50 mg tablet Take 1 tablet (50 mg total) by mouth every 6 (six) hours as needed for pain. Active acyclovir (ZOVIRAX) 800 mg tablet Take 1 tablet (800 mg total) by mouth in the morning and 1 tablet (800 mg total) before bedtime. Active latanoprost (XALATAN) 0.005 % ophthalmic solution 1 drop nightly. Acti ve brimonidine (ALPHAGAN P) 0.1 % drops 1 drop every 8 (eight) hours. Active acetaminophen (TYLENOL) 325 mg tablet Take 2 tablets (650 mg total) by mouth every 8 (eight) hours as needed for pain, headaches or fever. 30 tablet 2 Active dextrose (GLUTOSE) 40 % gel Take 37.5 mL (15 g total) by mouth as needed for low blood sugar (blood glucose less than 70 mg/dL). 2 Active Additional Information Patient not taking.Reported on 12/11/2023 metoprolol tartrate (LOPRESSOR) 50 mg tablet Take 1 tablet (50 mg total) by mouth 2 (two) times a day. 90 tablet 3 2 Active colestipoL (COLESTID) 1 g tablet Take 1 tablet (1 g total) by mouth in the morning and 1 tablet (1 g total) before bedtime. Active Active Problems Problem Noted Date Diagnosed Date Anxiety 01/01/2022 Primary hypertension 01/01/2022 GI bleed 12/31/2021 Coronary atherosclerosis 12/31/2021 Spinal stenosis, unspecified region other than c ervical 12/31/2021 Immunizations Immunization Administration Dates Next Due Tdap 07/16/2020 Family History Medical History Relation Name Comments Coronary artery disease Father Relation Name Status Comments Daughter Alive Father Mother Son Alive Social History Tobacco Use Types Packs/Day Years Used Date Smoking Tobacco: Former Cigarettes S tarted: 11/17/1982 Smokeless Tobacco: Never Tobacco Cessation:Counseling Given: Not Answered Alcohol Use Standard Drinks/Week Comments Not Currently 0 (1 standard drink = 0.6 oz pur e alcohol) Childcare Answer Date Recorded Childcare Unknown 04/28/2019 Employment Answer Date Recorded Employment Unknown 04/28/2019 Hunger Screening Answer Date Recorded Within the past 12 months we worried whether our food would run out before we got money to buy more. Never True 12/11/2023 Within the past 12 months th e food we bought just didn't last and we didn't have money to get more. Never True 12/11/2023 Purpose - Life Answer Date Recorded Purpose and direction in life Unknown Sex and Gender Information Value Date Recorded Sex Assigned at Not on file Legal Sex Male 11:45 AM EDT Gender Identity Not on file Sexual Orientation Not on file Last Filed Vital Signs Vital Sign Reading Time Taken Comments Blood Pressure 156/115 12/11/2023 11:38 AM EST Pulse 68 12/11/2023 11:38 AM EST Temperature 36.4 C (97.6 F) 01/01/2022 11:47 AM EST Respiratory Rate 20 01/01/2022 1:23 PM EST Oxygen Saturation 99% 12/11/2023 11:38 AM EST Inhaled Oxygen Concentration - - Weight 90.3 kg (199 lb) 12/11/2023 11:38 AM EST Height 175.3 cm (5' 9 ) 12/11/2023 11:38 AM EST Body Mass Index 29.39 12/11/2023 11:38 AM EST Plan of Treatment Health Maintenance Due Date Last Done Comments Depression Screening 1955 Zoster (Shingles) Vaccine (1 of 2) 1993 Fall Risk Screening 2008 Tobacco Screening 12/11/2024 12/11/2023 Influenza Vaccine 07/18/2025 DTaP,Tdap and Td Vaccines (2 - Td or Tdap) 07/16/2030 07/16/2020 Medical Devices Not on file Insurance MEDICARE [employer] Advance Directives * Full Code (Latest Code Status on File) Date Activated Date Inactivated Comments 12/31/2021 11:49 PM 01/01/2022 7:15 PM Care Teams Distribution Analyst Relationship Specialty Start Date End Date Pramod Smith DO [address] [place] [address] PCP - General Internal Medicine 07/16/20
--- OUTSIDE RECORDS SUMMARY | 2025-05-12 08:08 | XMS_ITS | Clinical Summary ---
Author Organization [facility] Address [address] [place] [id number] Care Team Providers Care Stove Installer Name Role Phone Unavailable Primary Care Provider Unavailabl e Allergies No known active allergies Medications PRINIVIL TABLET 5MG PO Take one(1) tablet daily. 0 07/28/2001 Active ATENOLOL TABLET 25MG PO Take one(1) tablet daily. 0 07/28/2001 Active NITROSTAT TAB SUBL 0.4MG SL Dissolve one(1) tablet under the toungue as needed for chest pain,every 5 min x3 0 07/28/2001 Active CLINDAMYCIN HCL 150MG CAPS Take one(1) tablet two(2) times daily. 60 11 04/10/2004 Active RAMONA-D 12 HOUR 60 MG-120 MG ORAL [id number] :Acute osteomyelitis, other specified site (HCC),Unspecifi ed sinusitis (chronic) Take one(1) tablet two(2) times daily as needed 60 1 08/06/2005 Active Active Problems Problem Noted Date Diagnosed Date Coronary atherosclerosis Spinal stenosis, unspecified region other than c ervical Social History Tobacco Use Types Packs/Day Years Used Date Smoking Tobacco: Never Assessed Sex and Gender Information Value Date Recorded Sex Assigned at Not on file Legal Sex Male 9:46 AM EST Gender Identity Not on file Sexual Orientation Not on file Last Filed Vital Signs Vital Sign Reading Time Taken Comments Blood Pressure 138/76 08/06/2005 1:45 PM EDT Pulse 84 08/06/2005 1:45 PM EDT Temperature 37.3 C (99.2 F) 08/06/2005 1:45 PM EDT Respiratory Rate 18 04/12/2003 1:45 PM EDT Oxygen Saturation - - Inhaled Oxygen Concentration - - Weight 86.2 kg (190 lb) 08/06/2005 1:45 PM EDT Height - - Body Mass Index - - Plan of Treatment Health Maintenance Due Date Last Done Comments Anxiety Screening 1961 Depression Screening 1961 DTaP,Tdap,Td Vaccine (1 - Tdap) 1962 Pneumococcal Vaccine: 50+ (1 of 1 - PCV) 1993 Shingrix Vaccine (1 of 2) 1993 Diabetes Screening 08/08/2004 08/08/2001, 0 08/07/2001, 08/05/2001, Additional history exists RSV Vaccine (1 - 1-dose 75+ series) 2018 Covid-19 Vaccine (1 - 2023-2 5 season) 2024 Advance Directive Discussion 11/17/2024 Influenza Vaccine (Season Ended) 2025 Procedures Procedure Name Priority Date/Time Associated Diagnosis Comments COMPREHENSIVE METABOLIC PANEL 08/08/2001 7:15 AM EDT from Last 3 Months or Most Recently Relevant to Health Maintenance Results * (ABNORMAL) COMP CHEMISTRY PKG (08/08/2001 7:15 AM EDT) Pathologist [facility] Protein, Total 5.5(A) 6.0 - 8.4 g/dL [facility] Albumin 2.6(A) 3.5 - 5.0 g/dL [facility] Calcium 8.5 8.5 - 10.5 mg/dL [facility] Bilirubin, Total 0.4 0.0 - 1.5 mg/dL [facility] Alkaline Phosphatase 80 20 - 120 U/L [facility] AST 28 7 - 40 U/L [facility] Glucose 86 65 - 110 mg/dL [facility] BUN 15 10 - 25 mg/dL [facility] Creatinine 0.9 0.7 - 1.4 mg/dL [facility] Sodium 136 135 - 146 mmol/L [facility] Potassium 4.2 3.5 - 5.0 mmol/L [facility] Chloride 99 98 - 110 mmol/L [facility] CO2 29 24 - 32 mmol/L [facility] Anion Gap 8 0 - 15 mmol/L [facility] ALT 34 5 - 50 U/L [facility] 08/08/2001 7:15 AM EDT us Louis Shah (Hist) Estuardo Castro MD LABORATORY Final Result [facility] [address] [place] [address] from Last 3 Months or Most Recently Relevant to Health Maintenance [place] [address] [address] [place] [address] [employer] PPO
--- OUTSIDE RECORDS SUMMARY | 2025-05-12 08:08 | XMS_ITS | Encounter Summary ---
Author Organization [facility] Address [address] [place], [place] [id number] Care Team Providers Care Brass Molder Helper Name Role Phone Cory, Ramos Linda Primary Care Provider [phone] PcpHermila APRN Primary Care Provider Unavailabl e Source Comments In the event this information is protected by the Federal Confidentiality of Alcohol and Drug AbusePatient Records regulations: The Federal rules restrict any use of the information to criminally investigate or prosecute any alcohol or drug abuse patient.[facility] Encounter Details Date Type Department Care Team (Latest Contact Info) Description 08/04/2005 Prob Sum Review Provider, Jovani Social History Tobacco Use Types Packs/Day Years Used Date Smoking Tobacco: Never Assessed Sex and Gender Information Value Date Recorded Sex Assigned at Not on file Legal Sex Male 9:46 AM EST Gender Identity Not on file Sexual Orientation Not on file documented as of this encounter Plan of Treatment Not on file documented as of this encounter Visit Diagnoses Not on filedocumented in this encounter Care Teams Brass Molder Helper Relationship Specialty Start Date End Date Cory, Ramos Linda [address] [place] [address] PCP - General 02/25/02 05/31/22 Hermila Whitman APRN PCP - General 06/01/22 12/17/22 documented as of this encounter
[2025-05-12 09:06] LABS: Basophils Absolute Auto 0.1 10^3/uL (0.0-0.1); Eosinophils Absolute Auto 0.3 10^3/uL (0.0-0.7); Eosinophils Percent Auto 5.4 % (0.9-7.0); Hematocrit 47.1 % (42.0-54.0); Hemoglobin 15.9 g/dL (14.0-18.0); Immature Granulocytes Abs Auto 0.05 10^3/uL (0.00-0.03); Immature Granulocytes Pct Auto 0.8 % (0.0-0.5); Lymphocytes Absolute Auto 2.2 10^3/uL (1.2-3.8); Lymphocytes Percent Auto 35.1 % (20.5-60.0); Mean Corpuscular HGB Conc 33.8 g/dL (29.9-35.2); Mean Corpuscular Hemoglobin 29.9 pg (25.9-34.0); Mean Corpuscular Volume 88.7 fL (80.0-94.0); Mean Platelet Volume 10.3 fL (9.5-13.5); Monocytes Absolute Auto 0.9 10^3/uL (0.3-0.8); Monocytes Percent Auto 14.9 % (1.7-12.0); Neutrophils Absolute Auto 2.7 10^3/uL (1.4-6.5); Neutrophils Percent Auto 42.8 % (43.0-75.0); Platelet Count 238 10^3/uL (150-450); Red Blood Count 5.31 10^6/uL (4.70-6.10); Red Cell Distribution Width 12.2 % (11.0-15.0); White Blood Count 6.3 10^3/uL (4.0-11.0)
[2025-05-12 10:42] LABS: Alanine Aminotransferase 28 U/L (16-63); Albumin Globulin Ratio 1.1; Albumin Level 3.9 g/dL (3.4-5.0); Alkaline Phosphatase 110 U/L (46-116); Anion Gap 13.4; Aspartate Amino Transferase 17 U/L (15-37); Bilirubin Total 0.5 mg/dL (0.2-1.0); Calcium 9.7 mg/dL (8.5-10.1); Carbon Dioxide 24.7 mmol/L (21.0-32.0); Chloride 107 mmol/L (98-107); Chol HDL Ratio 5.4; Cholesterol 185 mg/dL (<=200); Estimated GFR (African America >60 (>=60 mL/min/1.73m^2); Estimated GFR (Non-African Ame 59 (>=60 mL/min/1.73m^2); Globulin 3.7 g/dL; Glucose 104 mg/dL (74-106); HDL Cholesterol 34 mg/dL (40-60); Potassium 4.1 mmol/L (3.5-5.1); Sodium 141 mmol/L (136-145); Thyroid Stimulating Hormone 0.733 uIU/mL (0.358-3.740); Total Protein 7.6 g/dL (6.4-8.2); Triglycerides 229 mg/dL (<=150); VLDL CHOLESTEROL 45.8 mg/dL
[2025-05-12 10:55] LABS: Prostate Specific Antigen Scrn 0.39 ng/mL (<=4.00)
== END 2025-05-12 08:04 | disposition home or self-care (01) ==
LOC: LAB 08:05
PROVIDERS: PCP Internal Medicine; Visit Provider Internal Medicine
DX: E78.00 Pure hypercholesterolemia, unspecified (principal); N18.9 Chronic kidney disease, unspecified; Z12.5 Encounter for screening for malignant neoplasm of prostate; E89.0 Postprocedural hypothyroidism; I12.9 Hypertensive chronic kidney disease with stage 1 through stage 4 chronic kidney disease, or unspecified chronic kidney disease
CPT/HCPCS: 36415; 80053; 80061; 84443; 85025; G0103